=== PATIENT | male | born 1935 | race African-American/Black ===

== ENCOUNTER 2016-12-02 11:36 | Emergency (ER) | payer OTHER ==
[~2016-12-02] VITALS: Ht 167.6 cm; Wt 81.2 kg
[~2016-12-02 11:36] MED LIST: ACET325T9 PO; Aspirin PO; Hydrocodone/Acetaminophen PO; Metoprolol Tartrate PO
[2016-12-02 11:45] VITALS: BP 173/77
[2016-12-02] MEDS ORDERED: TETRACAINE 0.5% OPHTH SOLUTION 4ML BOTTLE. OS ONE (12:15)
[2016-12-02] MEDS ORDERED: FLUORESCEIN OPHTH TEST STRIP. OS ONE (12:15)
--- NOTE | 2016-12-02 12:55 | PHYS DOC ---
Past Medical History Past Medical History: Arthritis, Hypertension, Renal Disease, Renal Failure, UTI, Other Additional Past Medical Histor: DJD, COLON POLYPS, HEMORRHOIDS, BPH, AFLUTTER Past Surgical History: No Surgical History Alcohol Use: Occasionally Drug Use: None Adult General Chief Complaint Chief Complaint: EYE PROBLEMS [facility] HPI Patient is a 80 year old male presenting to the emergency department via ambulance for evaluation of left eye vision loss and feeling that there is something in his eye. He told the nurse that this started 2 days ago however patient told me that started 2 months ago as he has had progressive vision loss to the point where he cannot see anything including light and colors today. Patient is difficult to get history from as he is quite vague. He denies any exposure to foreign bodies and he denies any nausea vomiting headaches fevers chills. His left I looks injected. He says that his immunizations are up-to- date. Review of Systems Review of Systems Constitutional: Denies fever or chills [] Eyes: + change in visual acuity, redness, eye pain [] Cardiovascular: No additional information not addressed in HPI [] GI: Denies abdominal pain, nausea, vomiting, bloody stools or diarrhea [] Neurologic: Denies headache, focal weakness or sensory changes [] Current Medications Current Medications Current Medications Medications (Trade) Dose Ordered Sig/Maxx Start Time Stop Time Status Last Admin Dose Admin Fluorescein Sodium (Ful-Lucero) 1 strip 1X ONCE 12/02/16 12:15 12/02/16 12:16 DC 12/02/16 12:15 1 STRIP Tetracaine HCl (Tetracaine) 1 drop 1X ONCE 12/02/16 12:15 12/02/16 12:16 DC 12/02/16 12:15 1 DROP Allergies Allergies Allergies Coded Allergies Type Severity Reaction Last Updated Verified No Known Drug Allergies 01/18/15 No Physical Exam Physical Exam Constitutional: Well developed, well nourished, no acute distress, non-toxic appearance. [] EYES: Left eye diffusely injected with apparent foreign body at 10 o'clock position on iris. Cornea appears hazy and is somewhat more firm than the right eye. Pupil is minimally reactive on the left side. Pressures on his right I were in the low 20s and right eye were upper 30s. Negative Jemma sign and foreign body was partially removed with Q-tip and then the rest removed with eye yair. Cardiovascular:Heart rate regular rhythm, no murmur [] Lungs & Thorax: Bilateral breath sounds clear to auscultation [] Neurologic: Alert and oriented X 3, normal motor function, normal sensory function, no focal deficits noted. [] Current Patient Data Vital Signs Vital Signs Date Time Temp Pulse Resp B/P (MAP) Pulse Ox O2 Delivery O2 Flow Rate FiO2 12/02/16 11:45 97.8 60 14 173/77 (109) 94 Room Air 97.8 EKG EKG [] Radiology/Procedures Radiology/Procedures Indication: Left-sided vision loss. Axial imaging through the brain was performed without contrast. No prior studies are available for comparison. The ventricles and sulci are consistent with the patient's age. No sulcal effacement, midline shift or hemorrhage is detected. The cisterns are patent. There is opacification of bilateral maxillary sinuses. Impression: 1. No acute intracranial process is detected. 2. Bilateral maxillary sinusitis. 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 I eventually got a hold of Dr. Quiroga and he recommended getting ESR CRP and CBC. He said if these are negative he can see the patient tomorrow or the next day. 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 Patient is upset about having to get labs done however he is willing to stay. I will transfer care to Dr. Manzano while awaiting labs. Dragon Disclaimer Dragon Disclaimer This electronic medical record was generated, in whole or in part, using a voice recognition dictation system. Departure Departure Impression: Primary Impression: Vision loss of left eye Additional Impression: Foreign body of left eye Referrals: TIMO HAWKINS (PCP) Problem Qualifiers SHWETA BERMAN DO Dec 02, 2016 12:55
--- NOTE | 2016-12-02 12:57 | RAD ---
Indication: Left-sided vision loss. Axial imaging through the brain was performed without contrast. No prior studies are available for comparison. The ventricles and sulci are consistent with the patient's age. No sulcal effacement, midline shift or hemorrhage is detected. The cisterns are patent. There is opacification of bilateral maxillary sinuses. Impression: 1. No acute intracranial process is detected. 2. Bilateral maxillary sinusitis. PQRS Compliance Statement: One or more of the following individualized dose reduction techniques were utilized for this examination: 1. Automated exposure control 2. Adjustment of the mA and/or kV according to patient size 3. Use of iterative reconstruction technique
[2016-12-02 14:53] LABS: BASO % 1 % (0-3); EOS % 5 % (0-3); HEMATOCRIT 38.6 % (39.0-53.0); HEMOGLOBIN 12.7 g/dL (13.0-17.5); LYMPH # 1.1 x10^3/uL (1.0-4.8); LYMPH % 17 % (24-48); MEAN CORPUSCULAR HEMOGLOBIN 28 pg (25-35); MEAN CORPUSCULAR HGB CONC 33 g/dL (31-37); MEAN CORPUSCULAR VOLUME 86 fL (79-100); MONO % 10 % (0-9); NEUT % 68 % (31-73); PLATELET COUNT 205 x10^3/uL (140-400); RED BLOOD COUNT 4.48 x10^6/uL (4.30-5.70); RED CELL DISTRIBUTION WIDTH 14.8 % (11.5-14.5); WHITE BLOOD COUNT 6.4 x10^3/uL (4.0-11.0)
[2016-12-02 15:09] LABS: CALCIUM 8.8 mg/dL (8.5-10.1); CREATININE 1.2 mg/dL (0.7-1.3); GFR 70.7; POTASSIUM 4.4 mmol/L (3.5-5.1)
[2016-12-02] MEDS ORDERED: predniSONE 20 MG TABLET PO ONE (16:45)
[2016-12-02] MEDS ORDERED: PRED20TA PO (16:46)
== END 2016-12-02 18:12 | disposition home or self-care (01) ==
LOC: ER 11:36
DX: H54.62 Unqualified visual loss, left eye, normal vision right eye (principal); T15.82XA Foreign body in other and multiple parts of external eye, left eye, initial encounter; M19.90 Unspecified osteoarthritis, unspecified site; I12.9 Hypertensive chronic kidney disease with stage 1 through stage 4 chronic kidney disease, or unspecified chronic kidney disease; N18.9 Chronic kidney disease, unspecified; N40.0 Benign prostatic hyperplasia without lower urinary tract symptoms; Z87.440 Personal history of urinary (tract) infections; X58.XXXA Exposure to other specified factors, initial encounter; Y93.89 Activity, other specified; Y92.89 Other specified places as the place of occurrence of the external cause; Y99.8 Other external cause status
CPT/HCPCS: 36415; 65205; 70450; 80048; 85027; 85651; 86140; 99285; J7512

== ENCOUNTER 2017-01-08 18:08 | Inpatient (IN) | payer OTHER ==
[~2017-01-08] VITALS: Ht 170.2 cm; Wt 88.6 kg
[~2017-01-08 18:08] MED LIST changes: +PRED20TA PO
[2017-01-08] MEDS ORDERED: IPRATRPIUM/ALBUTEROL 0.5/2.5MG 3 ML NEBU. NEB ONE ×2 (18:30→19:00)
--- NOTE | 2017-01-08 18:42 | PHYS DOC ---
Past Medical History Past Medical History: Arthritis, Hypertension, Renal Disease, Renal Failure, UTI, Other Additional Past Medical Histor: DJD, COLON POLYPS, HEMORRHOIDS, BPH, AFLUTTER Past Surgical History: No Surgical History Alcohol Use: Occasionally Drug Use: None Adult General Chief Complaint Chief Complaint: SHORTNESS OF BREATH [facility] HPI 81-year-old male who lives at a skilled nursing with a history of COPD and atrial flutter, as well as "swallowing problems, " now sent to the emergency department for evaluation of worsening exertional shortness of breath with productive cough patient think she might be evolving a lung infection. He has bilateral lower extremity edema that's normal for him, states he's never been told he had congestive heart failure. Denies chest pain. Patient does not use home oxygen. He states he is unable to walk even a few steps because of shortness of breath which is definitely worse than his baseline. Review of Systems Review of Systems Constitutional: Denies fever or chills [] Eyes: Denies change in visual acuity, redness, or eye pain [] HENT: Denies nasal congestion or sore throat [] Respiratory: Denies cough or shortness of breath [] Cardiovascular: No additional information not addressed in HPI [] GI: Denies abdominal pain, nausea, vomiting, bloody stools or diarrhea [] : Denies dysuria or hematuria [] Musculoskeletal: Denies back pain or joint pain [] Integument: Denies rash or skin lesions [] Neurologic: Denies headache, focal weakness or sensory changes [] Endocrine: Denies polyuria or polydipsia [] Current Medications Current Medications Current Medications Medications (Trade) Dose Ordered Sig/Maxx Start Time Stop Time Status Last Admin Dose Admin Albuterol/ Ipratropium (Duoneb) 3 ml 1X ONCE 01/08/17 19:00 01/08/17 19:01 DC 01/08/17 20:55 3 ML Diphenhydramine HCl (Benadryl) 25 mg 1X ONCE 01/08/17 22:00 01/08/17 22:01 DC 01/08/17 21:47 25 MG Methylprednisolone Sodium Succinate (SOLU-Medrol 125MG VIAL) 125 mg 1X ONCE 01/08/17 19:00 01/08/17 19:01 DC 01/08/17 19:17 125 MG Sodium Chloride 500 ml @ 500 mls/hr 1X ONCE 01/08/17 19:00 01/08/17 19:59 DC 01/08/17 19:18 500 MLS/HR Allergies Allergies Allergies Coded Allergies Type Severity Reaction Last Updated Verified No Known Drug Allergies 01/18/15 No Physical Exam Physical Exam Constitutional: Chronically weak appearing mild tachypnea bilateral bronchospasm or rhonchi, no acute distress, non-toxic appearance. [] HENT: Normocephalic, atraumatic, bilateral external ears normal, oropharynx moist, no oral exudates, nose normal. [] Eyes: PERRLA, EOMI, conjunctiva normal, no discharge. [] Neck: Normal range of motion, no tenderness, supple, no stridor. [] Cardiovascular:Heart rate irregularly irregular rhythm, no murmur [] Lungs & Thorax: Above Abdomen: Bowel sounds normal, soft, no tenderness, no masses, no pulsatile masses. [] Skin: Warm, dry, no erythema, no rash. [] Back: No tenderness, no CVA tenderness. [] Extremities: No tenderness, no cyanosis, no clubbing, ROM intact, no edema. [] Neurologic: Alert and oriented X 3, normal motor function, normal sensory function, no focal deficits noted. [] Psychologic: Affect normal, judgement normal, mood normal. [] Current Patient Data Vital Signs Vital Signs Date Time Temp Pulse Resp B/P (MAP) Pulse Ox O2 Delivery O2 Flow Rate FiO2 01/08/17 20:54 98 Room Air 01/08/17 18:20 98.8 50 20 173/77 (109) 98.8 Lab Values Laboratory Tests Test 01/08/17 19:25 White Blood Count 7.8 x10^3/uL (4.0-11.0) Red Blood Count 4.24 x10^6/uL (4.30-5.70) L Hemoglobin 12.3 g/dL (13.0-17.5) L Hematocrit 36.9 % (39.0-53.0) L Mean Corpuscular Volume 87 fL (79-100) Mean Corpuscular Hemoglobin 29 pg (25-35) Mean Corpuscular Hemoglobin Concent 33 g/dL (31-37) Red Cell Distribution Width 15.3 % (11.5-14.5) H Platelet Count 230 x10^3/uL (140-400) Neutrophils (%) (Auto) 57 % (31-73) Lymphocytes (%) (Auto) 23 % (24-48) L Monocytes (%) (Auto) 15 % (0-9) H Eosinophils (%) (Auto) 5 % (0-3) H Basophils (%) (Auto) 1 % (0-3) Neutrophils # (Auto) 4.4 x10^3uL (1.8-7.7) Lymphocytes # (Auto) 1.8 x10^3/uL (1.0-4.8) Monocytes # (Auto) 1.1 x10^3/uL (0.0-1.1) Eosinophils # (Auto) 0.4 x10^3/uL (0.0-0.7) Basophils # (Auto) 0.1 x10^3/uL (0.0-0.2) Sodium Level 143 mmol/L (136-145) Potassium Level 4.3 mmol/L (3.5-5.1) Chloride Level 108 mmol/L (98-107) H Carbon Dioxide Level 25 mmol/L (21-32) Anion Gap 10 (6-14) Blood Urea Nitrogen 25 mg/dL (8-26) Creatinine 1.4 mg/dL (0.7-1.3) H Estimated GFR (Cockcroft-Gault) 59.0 Glucose Level 109 mg/dL (70-99) H Calcium Level 8.9 mg/dL (8.5-10.1) Troponin I Quantitative < 0.017 ng/mL (0.000-0.055) Laboratory Tests 01/08/17 19:25 Laboratory Tests 01/08/17 19:25 EKG EKG Atrial fibrillation with the ventricular rate of 59. Nonspecific ST and T-wave findings with repolarization abnormality. No significant change in QRS morphology compared with prior exam. [] Radiology/Procedures Radiology/Procedures Chest x-ray chronic changes no acute disease no visible infiltrate interpreted by me [] Course & Med Decision Making Course & Med Decision Making Pertinent Labs and Imaging studies reviewed. (See chart for details) Signs and symptoms consistent with exacerbation of COPD improved after treatment however patient has persistent wheezing. He does not wear home O2 per records and he still hypoxic on room air 90-91%. Improved with supplemental oxygen. Patient has productive cough but no evidence of infiltrate on the x- ray. He has Zithromax given. Steroids administered. She'll be discussed with Dr. Kiko Hein admitting for patient's primary care doctor. We'll advise of history and findings and admit to inpatient telemetry bed for further respiratory workup therapy and supplemental oxygen. [] Dragon Disclaimer Dragon Disclaimer This electronic medical record was generated, in whole or in part, using a voice recognition dictation system. Departure Departure Impression: Primary Impression: COPD exacerbation Additional Impressions: Hypoxia Bronchitis Disposition: ADMITTED INPATIENT Admitting Physician: Stephanie Mariano Condition: IMPROVED Referrals: TIMO HAWKINS (PCP) Problem Qualifiers AVNI VARELA MD Jan 08, 2017 18:42
[2017-01-08] MEDS ORDERED: methylPREDNISolone SOD SUCC PF 125 MG/2 ML VIAL. IV ONE (19:00)
[2017-01-08] MEDS ORDERED: IV NORMAL SALINE 500ML BAG 500 ML IV ONE (19:00)
[2017-01-08 19:40] LABS: BASO # 0.1 x10^3/uL (0.0-0.2); BASO % 1 % (0-3); EOS % 5 % (0-3); HEMATOCRIT 36.9 % (39.0-53.0); HEMOGLOBIN 12.3 g/dL (13.0-17.5); LYMPH # 1.8 x10^3/uL (1.0-4.8); LYMPH % 23 % (24-48); MEAN CORPUSCULAR HEMOGLOBIN 29 pg (25-35); MEAN CORPUSCULAR HGB CONC 33 g/dL (31-37); MEAN CORPUSCULAR VOLUME 87 fL (79-100); MONO % 15 % (0-9); NEUT % 57 % (31-73); PLATELET COUNT 230 x10^3/uL (140-400); RED BLOOD COUNT 4.24 x10^6/uL (4.30-5.70); RED CELL DISTRIBUTION WIDTH 15.3 % (11.5-14.5); WHITE BLOOD COUNT 7.8 x10^3/uL (4.0-11.0)
[2017-01-08 19:53] LABS: CALCIUM 8.9 mg/dL (8.5-10.1); CREATININE 1.4 mg/dL (0.7-1.3); POTASSIUM 4.3 mmol/L (3.5-5.1)
[2017-01-08] MEDS ORDERED: diphenhydrAMINE 50 MG/ML VIAL IVP ONE (22:00)
[2017-01-08] MEDS ORDERED: AZITHROMYCIN 250 MG TABLET. PO ONE (22:30)
[2017-01-08 23:45] VITALS: BP 135/72
[2017-01-08] MEDS ORDERED: ACETAMINOPHEN 325 MG TABLET. PO PRN (23:45)
[2017-01-09] MEDS: IV NORMAL SALINE 1000ML BAG 1,000 ML IV SCH ×2 (00:18→14:39)
[2017-01-09] MEDS: ENOXAPARIN 40 MG/0.4 ML SYRINGE. SQ SCH ×2 (00:20→21:22)
[2017-01-09] MEDS ORDERED: FINA5TAB4 PO (01:14)
[2017-01-09] MEDS ORDERED: LACT20SO PO (01:14)
[2017-01-09] MEDS ORDERED: POLY17PO29 PO (01:14)
[2017-01-09] MEDS ORDERED: LOSA100T6 PO (01:14)
[2017-01-09] MEDS ORDERED: HYDR-971 PO (01:14)
[2017-01-09] MEDS ORDERED: AMLO10TA2 PO (01:14)
[2017-01-09] MEDS ORDERED: DEXT15DR5 EACHEYE (01:14)
[2017-01-09] MEDS ORDERED: CLON0.5T3 PO (01:14)
--- NOTE | 2017-01-09 01:24 | ACF ---
Admission Forms Criteria COPD Clinical Indications for Admission to Inpatient Care (Place 'X' for any and all applicable criteria): Admission is indicated for ANY ONE of the following (1)(2)(3): [X]I. Acute exacerbation by high-risk comorbidity (e.g., pneumonia, dysrhythmia, heart failure, pleural effusion, pneumothorax) or severe underlying COPD (e.g., steroid dependent) [ ]II. Inpatient admission required rather than observation care (see Chronic Obstructive Pulmonary Disease: Observation Care) because of ANY ONE of the following: [ ]a) New or pre-existing signs or symptoms of COPD (eg, dyspnea or Tachypnea at rest or with minimal activity) that persist despite outpatient and observation care treatment [ ]b) New-onset hypoxemia (room air SaO2 less than 90%, PO2 less than 60 mm Hg (8.0 kPa)) that persists despite outpatient and observation care treatment [ ]c) Worsening of pre-existing hypoxemia (eg, new or increased requirement for supplemental oxygen to maintain oxygenation at baseline level) that persists despite outpatient and observation care treatment, with oxygen treatment needs performable only in acute inpatient setting [ ]d) Hypercarbia (PCO2 greater than 40 mm Hg (5.3 kPa))-induced respiratory acidosis (pH less than 7.35) that persists despite outpatient and observation care treatment [ ]e) Supplemental oxygen or respiratory treatments for over 24 hours that are performable only in acute inpatient setting [ ]f) Chest tube placement with active evacuation (e.g., suction, drainage) (5) [ ]g) Other condition, treatment or monitoring requiring inpatient admission [ ]III. Planned invasive surgical or diagnostic procedures requiring acute- care hospitalization [ ]IV. Acute respiratory failure (e.g., uncompensated hypercarbia, severe hypoxemia) [ ]V. Severe comorbid condition (e.g., severe steroid myopathy, acute vertebral fracture) that has acutely worsened pulmonary function [ ]. Confusion state, lethargy, obtundation, stupor or coma Extended stay beyond goal length of stay may be needed for (31)(32): [ ]a ) Respiratory Failure. [ ]b) Severe or persisting hypoxemia or hypercarbia [ ]c) Severe or persistent dyspnea [ ]d) Comorbidities (e.g. chronic heart failure, atrial fibrillation with rapid response, pneumonia) [ ]e) Malnutrition The original [facility] content created by [facility] [employer] has been revised. The portions of the content which have been revised are identified through the use of italic text or in bold, and [facility] has neither reviewed nor approved the modified material. All other unmodified content is copyright [facility]. Please see references footnoted in the original [facility] edition 2016 Admission Criteria Met?: Yes KASEY PAYTON Jan 09, 2017 01:24
[2017-01-09 03:15] VITALS: BP 136/73
[2017-01-09 04:43] LABS: BASO % 0 % (0-3); EOS % 0 % (0-3); HEMATOCRIT 36.3 % (39.0-53.0); HEMOGLOBIN 12.4 g/dL (13.0-17.5); LYMPH # 0.4 x10^3/uL (1.0-4.8); LYMPH % 5 % (24-48); MEAN CORPUSCULAR HEMOGLOBIN 30 pg (25-35); MEAN CORPUSCULAR HGB CONC 34 g/dL (31-37); MEAN CORPUSCULAR VOLUME 86 fL (79-100); MONO % 1 % (0-9); NEUT % 94 % (31-73); PLATELET COUNT 229 x10^3/uL (140-400); RED CELL DISTRIBUTION WIDTH 15.3 % (11.5-14.5); WHITE BLOOD COUNT 8.3 x10^3/uL (4.0-11.0)
[2017-01-09 04:56] LABS: CALCIUM 8.9 mg/dL (8.5-10.1); CREATININE 1.3 mg/dL (0.7-1.3); GFR 64.3; POTASSIUM 4.8 mmol/L (3.5-5.1)
[2017-01-09] MEDS: methylPREDNISolone SOD SUCC PF 125 MG/2 ML VIAL. IV SCH ×3 (06:03→21:22)
--- NOTE | 2017-01-09 06:20 | EKG ---
[facility] [address] [place] [address] Test Date: 2017-01-08 Test Time: 19:14:24 Pat Name: ZAIN GILMORE Department: Room: [facility] Gender: M Learning And Development Officer: : 1935 Requested By: AVNI VARELA Order Number: [id number] Reading MD: Tiffanie Hoffman Measurements Intervals [place] Rate: 59 P: [place]: QRS: -24 QRSD: 118 T: 103 QT: 440 QTc: 440 Interpretive Statements ATRIAL FIBRILLATION LEFTWARD AXIS QRS(T) CONTOUR ABNORMALITY CONSISTENT WITH ANTERIOR INFARCT PROBABLY OLD INTRA VENTRICULAR CONDUCTION DEFECT Electronically Signed On 01-13-2017 15:08:40 CDT by Tiffanie Hoffman
[2017-01-09 07:00] VITALS: BP 173/75
[2017-01-09] MEDS: IPRATRPIUM/ALBUTEROL 0.5/2.5MG 3 ML NEBU. NEB SCH ×4 (08:04→19:46)
[2017-01-09 08:28] LABS: PLT ESTIMATE ADEQUATE (ADEQUATE)
--- NOTE | 2017-01-09 08:28 | RAD ---
Portable chest, 01/08/2017: History: Shortness of breath Comparison is made to a study from 04/06/2015. The heart size and pulmonary vascularity are normal. There is calcific plaquing of the aorta. No acute infiltrate is seen. There is no evidence of pleural fluid. Degenerative changes are present in the spine and at both shoulders. IMPRESSION: No acute cardiopulmonary abnormality is detected.
[2017-01-09] MEDS: METOPROLOL TART IMMED RELEASE 25 MG TABLET. PO SCH ×2 (08:44→21:23)
[2017-01-09] MEDS: ASPIRIN ENTERIC COATED 81 MG TABLET.DR. PO SCH (08:44)
[2017-01-09 10:40] VITALS: BP 177/80
[2017-01-09 14:49] VITALS: BP 170/72
--- NOTE | 2017-01-09 18:29 | PDOC1 ---
HISTORY AND PHYSICAL Chief Complaint Chief Complaint This is 81-year-old male who lives at [facility], with a history of COPD and atrial flutter, as well as "swallowing problems, " now sent to the emergency department for evaluation of worsening exertional shortness of breath with productive cough patient think she might be evolving a lung infection. He has bilateral lower extremity edema that's normal for him, states he's never been told he had congestive heart failure. Denies chest pain. Patient does not use home oxygen. He states he is unable to walk even a few steps because of shortness of breath which is definitely worse than his baseline.admitted for copd exacerbation.given steroid s and antibiotics Problems: Past Medical History Cardiovascular: AFIB, HTN Pulmonary: No pertinent hx CENTRAL NERVOUS SYSTEM: Other GI: No pertinent hx Heme/Onc: Anemia NOS Musculoskeletal: Osteoarthritis, Other Renal/: Acute renal failure Endocrine: No pertinent hx Past Surgical History Past Surgical History: No pertinent history Past Family History Family History: Family History Unknown Past Social History PSH ex smoker, no alcohol ,lives in assisted facility Review of Symptoms Review of Symptoms General ROS: positive for SOB and wheezing Psychological ROS: negative Ophthalmic ROS: negative ENT ROS: negative Allergy and Immunology ROS: negative Hematology and Lymphatic: negative Endocrine ROS: negative Respiratory ROS: no cold, cough, dyspnea. Cardiovascular ROS: no chest pain or dyspnea on exertion Gastrointestinal ROS: no abdominal pain, change in bowel habits, or black or bloody stools Genito-Urinary ROS: no dysuria, trouble voiding, or hematuria Musculoskeletal ROS: no pain Neurological ROS: negative Dermatological ROS: no rash Medications Current Medications Acetaminophen (Tylenol) 650 mg PRN Q6HRS PRN PO MILD PAIN / TEMP; Start at 23:45 Acetaminophen/ Hydrocodone Bitart (Lortab 5/325) 1 tab PRN Q6HRS PRN PO MODERATE PAIN; Start 01/08/17 at 23:45 Albuterol Sulfate (Ventolin Neb Soln) 2.5 mg PRN QID PRN NEB SHORTNESS OF BREATH; Start 01/08/17 at 23:45 Albuterol/ Ipratropium (Duoneb) 3 ml 1X ONCE NEB Last administered on t 18:37; Start 01/08/17 at 18:30; Stop 01/08/17 at 18:31; Status DC Albuterol/ Ipratropium (Duoneb) 3 ml 1X ONCE NEB Last administered on 20:55; Start 01/08/17 at 19:00; Stop 01/08/17 at 19:01; Status DC Albuterol/ Ipratropium (Duoneb) 3 ml RTQID NEB Last administered on 01/09/17 16:00; Start 01/09/17 at 08:00 Aspirin (Ecotrin) 81 mg [id number] PO Last administered on 01/09/17 08:44; Start 01/09/17 at 08:00 Azithromycin (Zithromax) 500 mg 1X ONCE PO Last administered on 01/09/17 00: 20; Start 01/08/17 at 22:30; Stop 01/08/17 at 22:31; Status DC Ceftriaxone Sodium 1 gm/ Sodium Chloride 50 ml @ 100 mls/hr QHS IV Last administered on 01/09/17 00:18; Start 01/09/17 at 00:00 Diphenhydramine HCl (Benadryl) 25 mg 1X ONCE IVP Last administered on 21:47; Start 01/08/17 at 22:00; Stop 01/08/17 at 22:01; Status DC Enoxaparin Sodium (Lovenox 40mg Syringe) 40 mg QHS SQ Last administered on 01/09 00:20; Start 01/09/17 at 00:00 Methylprednisolone Sodium Succinate (SOLU-Medrol 125MG VIAL) 60 mg Q8HRS IV Last administered on 01/09/17 14:40; Start 01/09/17 at 06:00 Methylprednisolone Sodium Succinate (SOLU-Medrol 125MG VIAL) 125 mg 1X ONCE IV Last administered on 01/08/17 19:17; Start 01/08/17 at 19:00; Stop 01/08/17 at 19:01; Status DC Metoprolol Tartrate (Lopressor) 12.5 mg BID PO Last administered on 01/09/17 08:44; Start 01/09/17 at 09:00 Sodium Chloride 500 ml @ 500 mls/hr 1X ONCE IV Last administered on 19:18; Start 01/08/17 at 19:00; Stop 01/08/17 at 19:59; Status DC Sodium Chloride 1,000 ml @ 75 mls/hr [id number] IV Last administered on t 14:39; Start 01/08/17 at 23:45 Allergy Allergies Coded Allergies Type Severity Reaction Last Updated Verified No Known Drug Allergies 01/18/15 No Physical Exam Physical Exam General appearance - chronically ill appearing, and in no distress and oriented to person, Mental Status - alert, oriented to person,, affect appropriate to mood Head - normal Chest - clear to auscultation, no wheezes, rales or rhonchi, symmetric air entry Heart - S1 and S2 normal Abdomen - soft, nontender, nondistended, no masses or organomegaly Neurological - alert and oriented Musculoskeletal - deformities at joints knee Extremities - no pedal edema Skin - warm and dry no chung Labs Laboratory Tests Test 01/08/17 19:25 01/09/17 03:30 White Blood Count 7.8 x10^3/uL (4.0-11.0) 8.3 x10^3/uL (4.0-11.0) Red Blood Count 4.24 x10^6/uL (4.30-5.70) 4.20 x10^6/uL (4.30-5.70) Hemoglobin 12.3 g/dL (13.0-17.5) 12.4 g/dL (13.0-17.5) Hematocrit 36.9 % (39.0-53.0) 36.3 % (39.0-53.0) Mean Corpuscular Volume 87 fL (79-100) 86 fL (79-100) Mean Corpuscular Hemoglobin 29 pg (25-35) 30 pg (25-35) Mean Corpuscular Hemoglobin Concent 33 g/dL (31-37) 34 g/dL (31-37) Red Cell Distribution Width 15.3 % (11.5-14.5) 15.3 % (11.5-14.5) Platelet Count 230 x10^3/uL (140-400) 229 x10^3/uL (140-400) Neutrophils (%) (Auto) 57 % (31-73) 94 % (31-73) Lymphocytes (%) (Auto) 23 % (24-48) 5 % (24-48) Monocytes (%) (Auto) 15 % (0-9) 1 % (0-9) Eosinophils (%) (Auto) 5 % (0-3) 0 % (0-3) Basophils (%) (Auto) 1 % (0-3) 0 % (0-3) Neutrophils # (Auto) 4.4 x10^3uL (1.8-7.7) 7.8 x10^3uL (1.8-7.7) Lymphocytes # (Auto) 1.8 x10^3/uL (1.0-4.8) 0.4 x10^3/uL (1.0-4.8) Monocytes # (Auto) 1.1 x10^3/uL (0.0-1.1) 0.0 x10^3/uL (0.0-1.1) Eosinophils # (Auto) 0.4 x10^3/uL (0.0-0.7) 0.0 x10^3/uL (0.0-0.7) Basophils # (Auto) 0.1 x10^3/uL (0.0-0.2) 0.0 x10^3/uL (0.0-0.2) Sodium Level 143 mmol/L (136-145) 143 mmol/L (136-145) Potassium Level 4.3 mmol/L (3.5-5.1) 4.8 mmol/L (3.5-5.1) Chloride Level 108 mmol/L (98-107) 108 mmol/L (98-107) Carbon Dioxide Level 25 mmol/L (21-32) 25 mmol/L (21-32) Anion Gap 10 (6-14) 10 (6-14) Blood Urea Nitrogen 25 mg/dL (8-26) 23 mg/dL (8-26) Creatinine 1.4 mg/dL (0.7-1.3) 1.3 mg/dL (0.7-1.3) Estimated GFR (Cockcroft-Gault) 59.0 64.3 Glucose Level 109 mg/dL (70-99) 170 mg/dL (70-99) Calcium Level 8.9 mg/dL (8.5-10.1) 8.9 mg/dL (8.5-10.1) Troponin I Quantitative < 0.017 ng/mL (0.000-0.055) Segmented Neutrophils % 90 % (35-66) Band Neutrophils % 2 % (0-9) Lymphocytes % 8 % (24-48) Platelet Estimate Adequate (ADEQUATE) Laboratory Tests Test 01/08/17 19:25 01/09/17 03:30 White Blood Count 7.8 x10^3/uL (4.0-11.0) 8.3 x10^3/uL (4.0-11.0) Red Blood Count 4.24 x10^6/uL (4.30-5.70) 4.20 x10^6/uL (4.30-5.70) Hemoglobin 12.3 g/dL (13.0-17.5) 12.4 g/dL (13.0-17.5) Hematocrit 36.9 % (39.0-53.0) 36.3 % (39.0-53.0) Mean Corpuscular Volume 87 fL (79-100) 86 fL (79-100) Mean Corpuscular Hemoglobin 29 pg (25-35) 30 pg (25-35) Mean Corpuscular Hemoglobin Concent 33 g/dL (31-37) 34 g/dL (31-37) Red Cell Distribution Width 15.3 % (11.5-14.5) 15.3 % (11.5-14.5) Platelet Count 230 x10^3/uL (140-400) 229 x10^3/uL (140-400) Neutrophils (%) (Auto) 57 % (31-73) 94 % (31-73) Lymphocytes (%) (Auto) 23 % (24-48) 5 % (24-48) Monocytes (%) (Auto) 15 % (0-9) 1 % (0-9) Eosinophils (%) (Auto) 5 % (0-3) 0 % (0-3) Basophils (%) (Auto) 1 % (0-3) 0 % (0-3) Neutrophils # (Auto) 4.4 x10^3uL (1.8-7.7) 7.8 x10^3uL (1.8-7.7) Lymphocytes # (Auto) 1.8 x10^3/uL (1.0-4.8) 0.4 x10^3/uL (1.0-4.8) Monocytes # (Auto) 1.1 x10^3/uL (0.0-1.1) 0.0 x10^3/uL (0.0-1.1) Eosinophils # (Auto) 0.4 x10^3/uL (0.0-0.7) 0.0 x10^3/uL (0.0-0.7) Basophils # (Auto) 0.1 x10^3/uL (0.0-0.2) 0.0 x10^3/uL (0.0-0.2) Sodium Level 143 mmol/L (136-145) 143 mmol/L (136-145) Potassium Level 4.3 mmol/L (3.5-5.1) 4.8 mmol/L (3.5-5.1) Chloride Level 108 mmol/L (98-107) 108 mmol/L (98-107) Carbon Dioxide Level 25 mmol/L (21-32) 25 mmol/L (21-32) Anion Gap 10 (6-14) 10 (6-14) Blood Urea Nitrogen 25 mg/dL (8-26) 23 mg/dL (8-26) Creatinine 1.4 mg/dL (0.7-1.3) 1.3 mg/dL (0.7-1.3) Estimated GFR (Cockcroft-Gault) 59.0 64.3 Glucose Level 109 mg/dL (70-99) 170 mg/dL (70-99) Calcium Level 8.9 mg/dL (8.5-10.1) 8.9 mg/dL (8.5-10.1) Troponin I Quantitative < 0.017 ng/mL (0.000-0.055) Segmented Neutrophils % 90 % (35-66) Band Neutrophils % 2 % (0-9) Lymphocytes % 8 % (24-48) Platelet Estimate Adequate (ADEQUATE) Vitals Vital Signs Date Time Temp Pulse Resp B/P (MAP) Pulse Ox O2 Delivery O2 Flow Rate FiO2 01/09/17 16:01 Nasal Cannula 2.0 01/09/17 14:49 98.2 70 22 170/72 (104) 98 98.2 VTE Prophylaxis VTE Prophylaxis Devices: Yes VTE Pharmacological Prophylaxi: Yes Assessment Assessment COPD with ac exacerbation htn arthritis Plan Plan iv fluids iv steroids duoneb iv rocephin For more details regarding further plans, please refer to the orders. JAMES VERDIN MD Jan 09, 2017 18:29
[2017-01-09 19:52] VITALS: BP 140/68
[2017-01-09 23:00] VITALS: BP 166/72
[2017-01-10 03:00] VITALS: BP 169/73
[2017-01-10] MEDS: IV NORMAL SALINE 1000ML BAG 1,000 ML IV SCH (04:09)
[2017-01-10] MEDS: methylPREDNISolone SOD SUCC PF 125 MG/2 ML VIAL. IV SCH (05:51)
[2017-01-10 06:40] LABS: BASO % 0 % (0-3); EOS % 0 % (0-3); HEMATOCRIT 36.9 % (39.0-53.0); HEMOGLOBIN 11.8 g/dL (13.0-17.5); LYMPH # 0.8 x10^3/uL (1.0-4.8); LYMPH % 5 % (24-48); MEAN CORPUSCULAR HEMOGLOBIN 28 pg (25-35); MEAN CORPUSCULAR HGB CONC 32 g/dL (31-37); MEAN CORPUSCULAR VOLUME 89 fL (79-100); MONO % 2 % (0-9); NEUT % 92 % (31-73); PLATELET COUNT 243 x10^3/uL (140-400); RED BLOOD COUNT 4.17 x10^6/uL (4.30-5.70); RED CELL DISTRIBUTION WIDTH 15.7 % (11.5-14.5); WHITE BLOOD COUNT 14.9 x10^3/uL (4.0-11.0)
[2017-01-10 07:05] LABS: ALBUMIN 3.2 g/dL (3.4-5.0); ALBUMIN/GLOBULIN RATIO 0.8 (1.0-1.7); CALCIUM 8.9 mg/dL (8.5-10.1); CHOLESTEROL/HDL RATIO 4.2; CREATININE 1.2 mg/dL (0.7-1.3); GFR 70.5; POTASSIUM 4.7 mmol/L (3.5-5.1); TOTAL BILIRUBIN 0.3 mg/dL (0.2-1.0); TOTAL PROTEIN 7.4 g/dL (6.4-8.2)
[2017-01-10 07:20] VITALS: BP 181/76
[2017-01-10] MEDS: IPRATRPIUM/ALBUTEROL 0.5/2.5MG 3 ML NEBU. NEB SCH ×4 (07:27→19:26)
[2017-01-10 07:57] LABS: PLT ESTIMATE ADEQUATE (ADEQUATE)
[2017-01-10] MEDS: ASPIRIN ENTERIC COATED 81 MG TABLET.DR. PO SCH (08:00)
[2017-01-10] MEDS: METOPROLOL TART IMMED RELEASE 25 MG TABLET. PO SCH ×2 (09:26→20:24)
[2017-01-10 10:44] VITALS: BP 195/86
[2017-01-10] MEDS ORDERED: predniSONE 20 MG TABLET PO ONE (10:45)
[2017-01-10] MEDS: CEFPODOXIME PROXETIL 100 MG TABLET. PO SCH ×2 (11:23→20:24)
[2017-01-10 14:42] VITALS: BP 184/71
--- NOTE | 2017-01-10 16:35 | PDOC2 ---
CONSULT Date of Consult Date of Consult DATE: 01/10/17 TIME: 16:25 Reason for Consult Reason for Consult: rehab evaluation Referring Physician Referring Physician: Identification/Chief Complaint Chief Complaint SOB Problems: Source Source: Chart review, Patient History of Present Illness Reason for Visit: This is an elderly male with mobility and self care limitations,a resident of [facility] admitted here for for evaluation and treatment of increased SOB. Past Medical History Cardiovascular: AFIB, HTN Pulmonary: No pertinent hx CENTRAL NERVOUS SYSTEM: Other GI: No pertinent hx Heme/Onc: Anemia NOS Musculoskeletal: Osteoarthritis, Other Renal/: Acute renal failure Endocrine: No pertinent hx Past Surgical History Past Surgical History: No pertinent history Family History Family History: Family History Unknown Social History ALCOHOL: none Drugs: None Lives: Group Home Current Problem List Problem List Problems Medical Problems: (1) Bronchitis Status: Acute (2) COPD exacerbation Status: Acute (3) Hypoxia Status: Acute Current Medications Current Medications Current Medications Albuterol/ Ipratropium (Duoneb) 3 ml 1X ONCE NEB Last administered on 18:37; Start 01/08/17 at 18:30; Stop 01/08/17 at 18:31; Status DC Sodium Chloride 500 ml @ 500 mls/hr 1X ONCE IV Last administered on 19:18; Start 01/08/17 at 19:00; Stop 01/08/17 at 19:59; Status DC Methylprednisolone Sodium Succinate (SOLU-Medrol 125MG VIAL) 125 mg 1X ONCE IV Last administered on 01/08/17 19:17; Start 01/08/17 at 19:00; Stop 01/08/17 at 19:01; Status DC Albuterol/ Ipratropium (Duoneb) 3 ml 1X ONCE NEB Last administered on 20:55; Start 01/08/17 at 19:00; Stop 01/08/17 at 19:01; Status DC Diphenhydramine HCl (Benadryl) 25 mg 1X ONCE IVP Last administered on 21:47; Start 01/08/17 at 22:00; Stop 01/08/17 at 22:01; Status DC Azithromycin (Zithromax) 500 mg 1X ONCE PO Last administered on 01/09/17 00: 20; Start 01/08/17 at 22:30; Stop 01/08/17 at 22:31; Status DC Acetaminophen (Tylenol) 650 mg PRN Q6HRS PRN PO MILD PAIN / TEMP; Start at 23:45 Aspirin (Ecotrin) 81 mg DAILYWBKFT PO Last administered on 01/10/17 08:00; Start 01/09/17 at 08:00 Acetaminophen/ Hydrocodone Bitart (Lortab 5/325) 1 tab PRN Q6HRS PRN PO MODERATE PAIN; Start 01/08/17 at 23:45 Metoprolol Tartrate (Lopressor) 12.5 mg BID PO Last administered on 01/10/17 09:26; Start 01/09/17 at 09:00 Sodium Chloride 1,000 ml @ 75 mls/hr [id number] IV Last administered on 04:09; Start 01/08/17 at 23:45; Stop 01/10/17 at 10:47; Status DC Albuterol/ Ipratropium (Duoneb) 3 ml RTQID NEB Last administered on 01/10/17 15:27; Start 01/09/17 at 08:00 Albuterol Sulfate (Ventolin Neb Soln) 2.5 mg PRN QID PRN NEB SHORTNESS OF BREATH; Start 01/08/17 at 23:45 Methylprednisolone Sodium Succinate (SOLU-Medrol 125MG VIAL) 60 mg Q8HRS IV Last administered on 01/10/17 05:51; Start 01/09/17 at 06:00; Stop 01/10/17 at 10:47; Status DC Ceftriaxone Sodium 1 gm/ Sodium Chloride 50 ml @ 100 mls/hr QHS IV Last administered on 01/09/17 21:24; Start 01/09/17 at 00:00; Stop 01/10/17 at 10:47 ; Status DC Enoxaparin Sodium (Lovenox 40mg Syringe) 40 mg QHS SQ Last administered on 01/09 21:22; Start 01/09/17 at 00:00 Prednisone (Prednisone) 40 mg DAILY PO ; Start 01/11/17 at 09:00 Prednisone (Prednisone) 50 mg 1X ONCE PO Last administered on 01/10/17 11:23 ; Start 01/10/17 at 10:45; Stop 01/10/17 at 10:49; Status DC Cefpodoxime Proxetil (Vantin) 200 mg BID PO Last administered on 01/10/17t 11: 23; Start 01/10/17 at 10:45 Active Scripts Active Prednisone 20 Mg Tablet 3 Tab PO DAILY 5 Days [Metoprolol Tartrate] 25 MG Tablet 12.5 Mg PO BID [Hydrocodone/Acetaminophen] 1 TAB Tablet 1 Tab PO PRN Q6HRS PRN [Aspirin] 81 MG Tablet.dr 81 Mg PO DAILYWBKFT Tylenol (Acetaminophen) 325 Mg Tablet 650 Mg PO PRN Q6HRS PRN Reported Amlodipine Besylate 10 Mg Tablet 10 Mg PO DAILY Losartan Potassium 100 Mg Tablet 100 Mg PO DAILY Lactulose 20 Gm/30 Ml Solution 15 Gm PO DAILY Finasteride 5 Mg Tablet 1 Tab PO DAILY [place] 5-325 Tablet (Acetaminophen/Hydrocodone Bitart) 1 Each Tablet 1 Tab PO PRN Q6HRS PRN Artificial Tears Eye Drops (Dextran 70/Hypromellose) 15 Ml Drops 1 Drop EACHEYE PRN DAILY PRN Miralax (Polyethylene Glycol 3350) 17 Gm Powd.pack 1 Packet PO PRN DAILY PRN Clonazepam 0.5 Mg Tablet 1 Tab PO HS Allergies Allergies: Coded Allergies: I S O L A T I O N *CONTACT* (Verified Allergy, Unknown, 01/10/17) mrsa No Known Medication Allergies (Verified Allergy, Unknown, 01/10/17) Physical Exam General: Alert, Oriented X3, Cooperative, No acute distress HEENT: PERRLA, Mucous membr. moist/pink Extremities: Other (He had crepitus on ROM of both knees and shoulders with significant weakness of rotator cuff muscles blaterally and bilateral knee joint effusion and some limitation of hip joint rotational movements. He had absent knee and ankle jerks.) Skin: No rashes, No breakdown Neuro: Other (He requires maximal assistance with transfers.) Vitals VITALS Vital Signs Date Time Temp Pulse Resp B/P (MAP) Pulse Ox O2 Delivery O2 Flow Rate FiO2 01/10/17 15:28 Nasal Cannula 2.0 01/10/17 14:42 97.6 72 20 184/71 (108) 97 97.6 Labs Labs Laboratory Tests Test 01/08/17 19:25 01/09/17 00:05 01/09/17 03:30 01/10/17 06:15 White Blood Count 7.8 x10^3/uL (4.0-11.0) 8.3 x10^3/uL (4.0-11.0) 14.9 x10^3/uL (4.0-11.0) Red Blood Count 4.24 x10^6/uL (4.30-5.70) 4.20 x10^6/uL (4.30-5.70) 4.17 x10^6/uL (4.30-5.70) Hemoglobin 12.3 g/dL (13.0-17.5) 12.4 g/dL (13.0-17.5) 11.8 g/dL (13.0-17.5) Hematocrit 36.9 % (39.0-53.0) 36.3 % (39.0-53.0) 36.9 % (39.0-53.0) Mean Corpuscular Volume 87 fL (79-100) 86 fL (79-100) 89 fL (79-100) Mean Corpuscular Hemoglobin 29 pg (25-35) 30 pg (25-35) 28 pg (25-35) Mean Corpuscular Hemoglobin Concent 33 g/dL (31-37) 34 g/dL (31-37) 32 g/dL (31-37) Red Cell Distribution Width 15.3 % (11.5-14.5) 15.3 % (11.5-14.5) 15.7 % (11.5-14.5) Platelet Count 230 x10^3/uL (140-400) 229 x10^3/uL (140-400) 243 x10^3/uL (140-400) Neutrophils (%) (Auto) 57 % (31-73) 94 % (31-73) 92 % (31-73) Lymphocytes (%) (Auto) 23 % (24-48) 5 % (24-48) 5 % (24-48) Monocytes (%) (Auto) 15 % (0-9) 1 % (0-9) 2 % (0-9) Eosinophils (%) (Auto) 5 % (0-3) 0 % (0-3) 0 % (0-3) Basophils (%) (Auto) 1 % (0-3) 0 % (0-3) 0 % (0-3) Neutrophils # (Auto) 4.4 x10^3uL (1.8-7.7) 7.8 x10^3uL (1.8-7.7) 13.8 x10^3uL (1.8-7.7) Lymphocytes # (Auto) 1.8 x10^3/uL (1.0-4.8) 0.4 x10^3/uL (1.0-4.8) 0.8 x10^3/uL (1.0-4.8) Monocytes # (Auto) 1.1 x10^3/uL (0.0-1.1) 0.0 x10^3/uL (0.0-1.1) 0.3 x10^3/uL (0.0-1.1) Eosinophils # (Auto) 0.4 x10^3/uL (0.0-0.7) 0.0 x10^3/uL (0.0-0.7) 0.0 x10^3/uL (0.0-0.7) Basophils # (Auto) 0.1 x10^3/uL (0.0-0.2) 0.0 x10^3/uL (0.0-0.2) 0.0 x10^3/uL (0.0-0.2) Sodium Level 143 mmol/L (136-145) 143 mmol/L (136-145) 144 mmol/L (136-145) Potassium Level 4.3 mmol/L (3.5-5.1) 4.8 mmol/L (3.5-5.1) 4.7 mmol/L (3.5-5.1) Chloride Level 108 mmol/L (98-107) 108 mmol/L (98-107) 110 mmol/L (98-107) Carbon Dioxide Level 25 mmol/L (21-32) 25 mmol/L (21-32) 26 mmol/L (21-32) Anion Gap 10 (6-14) 10 (6-14) 8 (6-14) Blood Urea Nitrogen 25 mg/dL (8-26) 23 mg/dL (8-26) 30 mg/dL (8-26) Creatinine 1.4 mg/dL (0.7-1.3) 1.3 mg/dL (0.7-1.3) 1.2 mg/dL (0.7-1.3) Estimated GFR (Cockcroft-Gault) 59.0 64.3 70.5 Glucose Level 109 mg/dL (70-99) 170 mg/dL (70-99) 137 mg/dL (70-99) Calcium Level 8.9 mg/dL (8.5-10.1) 8.9 mg/dL (8.5-10.1) 8.9 mg/dL (8.5-10.1) Troponin I Quantitative < 0.017 ng/mL (0.000-0.055) Nasal Screen MRSA (PCR) Positive (Negative) Segmented Neutrophils % 90 % (35-66) 93 % (35-66) Band Neutrophils % 2 % (0-9) 1 % (0-9) Lymphocytes % 8 % (24-48) 5 % (24-48) Platelet Estimate Adequate (ADEQUATE) Adequate (ADEQUATE) Monocytes % 1 % (0-10) BUN/Creatinine Ratio 25 (6-20) Total Bilirubin 0.3 mg/dL (0.2-1.0) Aspartate Amino Transf (AST/SGOT) 15 U/L (15-37) Alanine Aminotransferase (ALT/SGPT) 18 U/L (16-63) Alkaline Phosphatase 151 U/L (46-116) Total Protein 7.4 g/dL (6.4-8.2) Albumin 3.2 g/dL (3.4-5.0) Albumin/Globulin Ratio 0.8 (1.0-1.7) Triglycerides Level 45 mg/dL (0-150) Cholesterol Level 208 mg/dL (0-200) LDL Cholesterol, Calculated 149 mg/dL (0-100) VLDL Cholesterol, Calculated 9 mg/dL (0-40) Non-HDL Cholesterol Calculated 158 mg/dL (0-129) HDL Cholesterol 50 mg/dL (40-60) Cholesterol/HDL Ratio 4.2 Thyroid Stimulating Hormone (TSH) 0.219 uIU/mL (0.358-3.74) Laboratory Tests Test 01/10/17 06:15 White Blood Count 14.9 x10^3/uL (4.0-11.0) Red Blood Count 4.17 x10^6/uL (4.30-5.70) Hemoglobin 11.8 g/dL (13.0-17.5) Hematocrit 36.9 % (39.0-53.0) Mean Corpuscular Volume 89 fL (79-100) Mean Corpuscular Hemoglobin 28 pg (25-35) Mean Corpuscular Hemoglobin Concent 32 g/dL (31-37) Red Cell Distribution Width 15.7 % (11.5-14.5) Platelet Count 243 x10^3/uL (140-400) Neutrophils (%) (Auto) 92 % (31-73) Lymphocytes (%) (Auto) 5 % (24-48) Monocytes (%) (Auto) 2 % (0-9) Eosinophils (%) (Auto) 0 % (0-3) Basophils (%) (Auto) 0 % (0-3) Neutrophils # (Auto) 13.8 x10^3uL (1.8-7.7) Lymphocytes # (Auto) 0.8 x10^3/uL (1.0-4.8) Monocytes # (Auto) 0.3 x10^3/uL (0.0-1.1) Eosinophils # (Auto) 0.0 x10^3/uL (0.0-0.7) Basophils # (Auto) 0.0 x10^3/uL (0.0-0.2) Segmented Neutrophils % 93 % (35-66) Band Neutrophils % 1 % (0-9) Lymphocytes % 5 % (24-48) Monocytes % 1 % (0-10) Platelet Estimate Adequate (ADEQUATE) Sodium Level 144 mmol/L (136-145) Potassium Level 4.7 mmol/L (3.5-5.1) Chloride Level 110 mmol/L (98-107) Carbon Dioxide Level 26 mmol/L (21-32) Anion Gap 8 (6-14) Blood Urea Nitrogen 30 mg/dL (8-26) Creatinine 1.2 mg/dL (0.7-1.3) Estimated GFR (Cockcroft-Gault) 70.5 BUN/Creatinine Ratio 25 (6-20) Glucose Level 137 mg/dL (70-99) Calcium Level 8.9 mg/dL (8.5-10.1) Total Bilirubin 0.3 mg/dL (0.2-1.0) Aspartate Amino Transf (AST/SGOT) 15 U/L (15-37) Alanine Aminotransferase (ALT/SGPT) 18 U/L (16-63) Alkaline Phosphatase 151 U/L (46-116) Total Protein 7.4 g/dL (6.4-8.2) Albumin 3.2 g/dL (3.4-5.0) Albumin/Globulin Ratio 0.8 (1.0-1.7) Triglycerides Level 45 mg/dL (0-150) Cholesterol Level 208 mg/dL (0-200) LDL Cholesterol, Calculated 149 mg/dL (0-100) VLDL Cholesterol, Calculated 9 mg/dL (0-40) Non-HDL Cholesterol Calculated 158 mg/dL (0-129) HDL Cholesterol 50 mg/dL (40-60) Cholesterol/HDL Ratio 4.2 Thyroid Stimulating Hormone (TSH) 0.219 uIU/mL (0.358-3.74) Assessment/Plan Assessment/Plan Mobility and self care limitations from DJD of both knees,hips and shoulders and bilateral rotator cuff lesions and peripheral neuropathy. Rec: Agree with plans for transfer to assisted living facility when his SOB improves. He is not have any pain in his joints at present time. ROMAN GUNDERSON MD Jan 10, 2017 16:35
[2017-01-10] MEDS: cloNIDine HCL 0.1 MG TABLET PO PRN (17:17)
[2017-01-10] MEDS ORDERED: cloNIDine HCL 0.1 MG TABLET PO SCH (18:00)
[2017-01-10 19:57] VITALS: BP 166/63
[2017-01-10] MEDS: ENOXAPARIN 40 MG/0.4 ML SYRINGE. SQ SCH (20:23)
[2017-01-10] MEDS: ALPRAZolam 0.25 MG TABLET PO PRN ×2 (20:24→23:22)
[2017-01-10] MEDS: HYDROcodone/APAP 5/325MG 1 TAB TABLET PO PRN (23:24)
[2017-01-10] MEDS: ALBUTEROL SULFATE 2.5 MG/3 ML NEBU. NEB PRN (23:46)
[2017-01-11 00:29] VITALS: BP 164/85
[2017-01-11 07:03] VITALS: BP 173/88
[2017-01-11] MEDS: predniSONE 20 MG TABLET PO SCH (07:44)
[2017-01-11] MEDS: CEFPODOXIME PROXETIL 100 MG TABLET. PO SCH ×2 (07:44→19:50)
[2017-01-11] MEDS: ASPIRIN ENTERIC COATED 81 MG TABLET.DR. PO SCH (07:44)
[2017-01-11] MEDS: METOPROLOL TART IMMED RELEASE 25 MG TABLET. PO SCH ×2 (07:46→19:52)
[2017-01-11] MEDS: IPRATRPIUM/ALBUTEROL 0.5/2.5MG 3 ML NEBU. NEB SCH ×4 (08:00→20:00)
--- NOTE | 2017-01-11 10:29 | PDOC ---
PROGRESS NOTES Subjective Subjective He denies any pain. Objective Objective Vital Signs Date Time Temp Pulse Resp B/P (MAP) Pulse Ox O2 Delivery O2 Flow Rate FiO2 01/11/17 08:00 Nasal Cannula 2.0 01/11/17 07:46 72 173/88 01/11/17 07:03 97.4 22 95 97.4 Intake and Output 01/11/17 06:59 Intake Total 700 ml Output Total 465 ml Balance 235 ml Intake Oral 700 ml Output Urine Total 465 ml # Voids 6 # Bowel Movements 1 Physical Exam Physical Exam He is sitting up in bedside recliner and continues with stiffness and weakness of both shoulders and stiff knees and hips and he requires physical assistance with mobility. Assessment Assessment Problems Medical Problems: (1) Bronchitis Status: Acute (2) COPD exacerbation Status: Acute (3) Hypoxia Status: Acute Plan Plan of Care To assisted living facility when medically stable. Comment Review of Relevant I have reviewed the following items rosy (where applicable) has been applied. Labs Laboratory Tests Test 01/10/17 06:15 White Blood Count 14.9 x10^3/uL (4.0-11.0) Red Blood Count 4.17 x10^6/uL (4.30-5.70) Hemoglobin 11.8 g/dL (13.0-17.5) Hematocrit 36.9 % (39.0-53.0) Mean Corpuscular Volume 89 fL (79-100) Mean Corpuscular Hemoglobin 28 pg (25-35) Mean Corpuscular Hemoglobin Concent 32 g/dL (31-37) Red Cell Distribution Width 15.7 % (11.5-14.5) Platelet Count 243 x10^3/uL (140-400) Neutrophils (%) (Auto) 92 % (31-73) Lymphocytes (%) (Auto) 5 % (24-48) Monocytes (%) (Auto) 2 % (0-9) Eosinophils (%) (Auto) 0 % (0-3) Basophils (%) (Auto) 0 % (0-3) Neutrophils # (Auto) 13.8 x10^3uL (1.8-7.7) Lymphocytes # (Auto) 0.8 x10^3/uL (1.0-4.8) Monocytes # (Auto) 0.3 x10^3/uL (0.0-1.1) Eosinophils # (Auto) 0.0 x10^3/uL (0.0-0.7) Basophils # (Auto) 0.0 x10^3/uL (0.0-0.2) Segmented Neutrophils % 93 % (35-66) Band Neutrophils % 1 % (0-9) Lymphocytes % 5 % (24-48) Monocytes % 1 % (0-10) Platelet Estimate Adequate (ADEQUATE) Sodium Level 144 mmol/L (136-145) Potassium Level 4.7 mmol/L (3.5-5.1) Chloride Level 110 mmol/L (98-107) Carbon Dioxide Level 26 mmol/L (21-32) Anion Gap 8 (6-14) Blood Urea Nitrogen 30 mg/dL (8-26) Creatinine 1.2 mg/dL (0.7-1.3) Estimated GFR (Cockcroft-Gault) 70.5 BUN/Creatinine Ratio 25 (6-20) Glucose Level 137 mg/dL (70-99) Calcium Level 8.9 mg/dL (8.5-10.1) Total Bilirubin 0.3 mg/dL (0.2-1.0) Aspartate Amino Transf (AST/SGOT) 15 U/L (15-37) Alanine Aminotransferase (ALT/SGPT) 18 U/L (16-63) Alkaline Phosphatase 151 U/L (46-116) Total Protein 7.4 g/dL (6.4-8.2) Albumin 3.2 g/dL (3.4-5.0) Albumin/Globulin Ratio 0.8 (1.0-1.7) Triglycerides Level 45 mg/dL (0-150) Cholesterol Level 208 mg/dL (0-200) LDL Cholesterol, Calculated 149 mg/dL (0-100) VLDL Cholesterol, Calculated 9 mg/dL (0-40) Non-HDL Cholesterol Calculated 158 mg/dL (0-129) HDL Cholesterol 50 mg/dL (40-60) Cholesterol/HDL Ratio 4.2 Thyroid Stimulating Hormone (TSH) 0.219 uIU/mL (0.358-3.74) Microbiology 01/10/17 Gram Stain - Final, Complete Medications Current Medications Albuterol/ Ipratropium (Duoneb) 3 ml 1X ONCE NEB Last administered on t 18:37; Start 01/08/17 at 18:30; Stop 01/08/17 at 18:31; Status DC Sodium Chloride 500 ml @ 500 mls/hr 1X ONCE IV Last administered on 19:18; Start 01/08/17 at 19:00; Stop 01/08/17 at 19:59; Status DC Methylprednisolone Sodium Succinate (SOLU-Medrol 125MG VIAL) 125 mg 1X ONCE IV Last administered on 01/08/17 19:17; Start 01/08/17 at 19:00; Stop 01/08/17 at 19:01; Status DC Albuterol/ Ipratropium (Duoneb) 3 ml 1X ONCE NEB Last administered on 20:55; Start 01/08/17 at 19:00; Stop 01/08/17 at 19:01; Status DC Diphenhydramine HCl (Benadryl) 25 mg 1X ONCE IVP Last administered on 21:47; Start 01/08/17 at 22:00; Stop 01/08/17 at 22:01; Status DC Azithromycin (Zithromax) 500 mg 1X ONCE PO Last administered on 01/09/17 00: 20; Start 01/08/17 at 22:30; Stop 01/08/17 at 22:31; Status DC Acetaminophen (Tylenol) 650 mg PRN Q6HRS PRN PO MILD PAIN / TEMP; Start at 23:45 Aspirin (Ecotrin) 81 mg DAILYWBKFT PO Last administered on 01/11/17 07:44; Start 01/09/17 at 08:00 Acetaminophen/ Hydrocodone Bitart (Lortab 5/325) 1 tab PRN Q6HRS PRN PO MODERATE PAIN Last administered on 01/10/17 23:24; Start 01/08/17 at 23:45 Metoprolol Tartrate (Lopressor) 12.5 mg BID PO Last administered on 01/11/17 07:46; Start 01/09/17 at 09:00 Sodium Chloride 1,000 ml @ 75 mls/hr [id number] IV Last administered on 04:09; Start 01/08/17 at 23:45; Stop 01/10/17 at 10:47; Status DC Albuterol/ Ipratropium (Duoneb) 3 ml RTQID NEB Last administered on 01/10/17 19:26; Start 01/09/17 at 08:00 Albuterol Sulfate (Ventolin Neb Soln) 2.5 mg PRN QID PRN NEB SHORTNESS OF BREATH Last administered on 01/10/17 23:46; Start 01/08/17 at 23:45 Methylprednisolone Sodium Succinate (SOLU-Medrol 125MG VIAL) 60 mg Q8HRS IV Last administered on 01/10/17 05:51; Start 01/09/17 at 06:00; Stop 01/10/17 at 10:47; Status DC Ceftriaxone Sodium 1 gm/ Sodium Chloride 50 ml @ 100 mls/hr QHS IV Last administered on 01/09/17 21:24; Start 01/09/17 at 00:00; Stop 01/10/17 at 10:47 ; Status DC Enoxaparin Sodium (Lovenox 40mg Syringe) 40 mg QHS SQ Last administered on 01/10 20:23; Start 01/09/17 at 00:00 Prednisone (Prednisone) 40 mg DAILY PO Last administered on 01/11/17 07:44; Start 01/11/17 at 09:00 Prednisone (Prednisone) 50 mg 1X ONCE PO Last administered on 01/10/17 11:23 ; Start 01/10/17 at 10:45; Stop 01/10/17 at 10:49; Status DC Cefpodoxime Proxetil (Vantin) 200 mg BID PO Last administered on 01/11/17 07: 44; Start 01/10/17 at 10:45 Alprazolam (Xanax) 0.25 mg BID PRN PO ANXIETY / AGITATION Last administered on 01/10/17 23:22; Start 01/10/17 at 16:45 Clonidine HCl (Catapres) 0.1 mg Q6HRS PO ; Start 01/10/17 at 18:00; Status Cancel Clonidine HCl (Catapres) 0.1 mg PRN Q6HRS PRN PO HYPERTENSION, SEE COMMENTS Last administered on 01/10/17 17:17; Start 01/10/17 at 17:15 Active Scripts Active Prednisone 20 Mg Tablet 3 Tab PO DAILY 5 Days [Metoprolol Tartrate] 25 MG Tablet 12.5 Mg PO BID [Hydrocodone/Acetaminophen] 1 TAB Tablet 1 Tab PO PRN Q6HRS PRN [Aspirin] 81 MG Tablet. 81 Mg PO DAILYWBKFT Tylenol (Acetaminophen) 325 Mg Tablet 650 Mg PO PRN Q6HRS PRN Reported Amlodipine Besylate 10 Mg Tablet 10 Mg PO DAILY Losartan Potassium 100 Mg Tablet 100 Mg PO DAILY Lactulose 20 Gm/30 Ml Solution 15 Gm PO DAILY Finasteride 5 Mg Tablet 1 Tab PO DAILY [place] 5-325 Tablet (Acetaminophen/Hydrocodone Bitart) 1 Each Tablet 1 Tab PO PRN Q6HRS PRN Artificial Tears Eye Drops (Dextran 70/Hypromellose) 15 Ml Drops 1 Drop EACHEYE PRN DAILY PRN Miralax (Polyethylene Glycol 3350) 17 Gm Powd.pack 1 Packet PO PRN DAILY PRN Clonazepam 0.5 Mg Tablet 1 Tab PO HS Vitals/I & O Vital Sign - Last 24 Hours 01/10/17 01/10/17 01/10/17 01/10/17 10:44 11:02 14:42 15:28 Temp 98.4 97.6 98.4 97.6 Pulse 87 72 Resp 22 20 B/P (MAP) 195/86 (122) 184/71 (108) Pulse Ox 95 96 97 O2 Delivery Nasal Cannula Nasal Cannula Nasal Cannula Nasal Cannula O2 Flow Rate 2.0 2.0 2.0 2.0 01/10/17 01/10/17 01/10/17 01/10/17 17:17 19:26 19:57 20:00 Temp 98.2 98.2 Pulse 72 84 Resp 20 B/P (MAP) 184/71 166/63 (97) Pulse Ox 95 96 O2 Delivery Nasal Cannula Nasal Cannula Nasal Cannula O2 Flow Rate 2.0 2.0 2.0 01/10/17 01/10/17 01/10/17 01/10/17 20:24 23:00 23:24 23:47 Pulse 72 B/P (MAP) 166/63 Pulse Ox 94 O2 Delivery Nasal Cannula Nasal Cannula Room Air O2 Flow Rate 2.0 01/11/17 01/11/17 01/11/17 01/11/17 00:29 00:32 03:56 07:03 Temp 98.2 97.4 98.2 97.4 Pulse 86 72 Resp 16 16 22 B/P (MAP) 164/85 (111) 173/88 (116) Pulse Ox 93 95 O2 Delivery Nasal Cannula Nasal Cannula Nasal Cannula Nasal Cannula O2 Flow Rate 2.0 2.0 2.0 2.0 01/11/17 01/11/17 07:46 08:00 Pulse 72 B/P (MAP) 173/88 O2 Delivery Nasal Cannula O2 Flow Rate 2.0 Intake and Output 01/10/17 01/10/17 01/11/17 14:59 22:59 06:59 Intake Total 700 ml 0 ml Output Total 465 ml Balance 700 ml -465 ml ROMAN GUNDERSON MD Jan 11, 2017 10:29
[2017-01-11 10:43] VITALS: BP 187/94
[2017-01-11] MEDS: cloNIDine HCL 0.1 MG TABLET PO PRN (10:45)
[2017-01-11] MEDS: HYDROcodone/APAP 5/325MG 1 TAB TABLET PO PRN ×2 (10:45→19:49)
[2017-01-11] MEDS: ALPRAZolam 0.25 MG TABLET PO PRN ×2 (10:45→19:49)
--- NOTE | 2017-01-11 12:28 | PDOC ---
PROGRESS NOTES Subjective Subjective doing well ,want to go back to assisted facility Objective Objective Vital Signs Date Time Temp Pulse Resp B/P (MAP) Pulse Ox O2 Delivery O2 Flow Rate FiO2 01/11/17 11:53 95 Room Air 01/11/17 10:45 74 187/94 01/11/17 10:43 97.8 20 2.0 97.8 Intake and Output 01/11/17 07:00 Intake Total 700 ml Output Total 465 ml Balance 235 ml Intake Oral 700 ml Output Urine Total 465 ml # Voids 6 # Bowel Movements 1 Physical Exam Abdomen: Normal bowel sounds, Soft Heart: Regular rate, Normal S1, Normal S2 Extremities: No clubbing, Other (He had crepitus on ROM of both knees and shoulders with significant weakness of rotator cuff muscles blaterally and bilateral knee joint effusion and some limitation of hip joint rotational movements. He had absent knee and ankle jerks.) General: Alert, Oriented X3, Cooperative, No acute distress HEENT: PERRLA, Mucous membr. moist/pink Lungs: Normal air movement MUSCULOSKELETAL: Osteoarthritic changes both hands Neck: Supple Neuro: Normal speech, Other (He requires maximal assistance with transfers.) Psych/Mental Status: Mood NL Skin: No rashes, No breakdown Diagnosis Problem List Problems Medical Problems: (1) Bronchitis Status: Acute (2) COPD exacerbation Status: Acute (3) Hypoxia Status: Acute Assessment Assessment Problems Medical Problems: (1) Bronchitis Status: Acute (2) COPD exacerbation Status: Acute (3) Hypoxia Status: Acute Assessment COPD with ac exacerbation htn arthritis Plan Plan: d/c back to assisted facility d/civ fluids d/c iv steroids duoneb d/c iv rocephin oral ventin and prednisone Problems: Plan Plan of Care Problems Medical Problems: (1) Bronchitis Status: Acute (2) COPD exacerbation Status: Acute (3) Hypoxia Status: Acute Comment Review of Relevant I have reviewed the following items rosy (where applicable) has been applied. Labs Microbiology 01/10/17 Gram Stain - Final, Complete Medications Current Medications Alprazolam (Xanax) 0.25 mg BID PRN PO ANXIETY / AGITATION Last administered on 01/11/17 10:45; Start 01/10/17 at 16:45 Clonidine HCl (Catapres) 0.1 mg PRN Q6HRS PRN PO HYPERTENSION, SEE COMMENTS Last administered on 7/14/17at 10:45; Start 01/10/17 at 17:15 Clonidine HCl (Catapres) 0.1 mg Q6HRS PO ; Start 01/10/17 at 18:00; Status Cancel Prednisone (Prednisone) 40 mg DAILY PO Last administered on 01/11/17t 07:44; Start 01/11/17 at 09:00 Vitals/I & O Vital Sign - Last 24 Hours 01/10/17 01/10/17 01/10/17 01/10/17 14:42 15:28 17:17 19:26 Temp 97.6 97.6 Pulse 72 72 Resp 20 B/P (MAP) 184/71 (108) 184/71 Pulse Ox 97 95 O2 Delivery Nasal Cannula Nasal Cannula Nasal Cannula O2 Flow Rate 2.0 2.0 2.0 01/10/17 01/10/17 01/10/17 01/10/17 19:57 20:00 20:24 23:00 Temp 98.2 98.2 Pulse 84 72 Resp 20 B/P (MAP) 166/63 (97) 166/63 Pulse Ox 96 O2 Delivery Nasal Cannula Nasal Cannula Nasal Cannula O2 Flow Rate 2.0 2.0 01/10/17 01/10/17 01/11/17 01/11/17 23:24 23:47 00:29 00:32 Temp 98.2 98.2 Pulse 86 Resp 16 B/P (MAP) 164/85 (111) Pulse Ox 94 93 O2 Delivery Nasal Cannula Room Air Nasal Cannula O2 Flow Rate 2.0 2.0 2.0 01/11/17 01/11/17 01/11/17 01/11/17 03:56 07:03 07:46 08:00 Temp 97.4 97.4 Pulse 72 72 Resp 16 22 B/P (MAP) 173/88 (116) 173/88 Pulse Ox 95 O2 Delivery Nasal Cannula Nasal Cannula Nasal Cannula O2 Flow Rate 2.0 2.0 2.0 01/11/17 01/11/17 01/11/17 01/11/17 10:43 10:45 10:45 11:32 Temp 97.8 97.8 Pulse 74 74 Resp 20 B/P (MAP) 187/94 (125) 187/94 Pulse Ox 95 O2 Delivery Nasal Cannula Room Air Room Air O2 Flow Rate 2.0 01/11/17 11:53 Pulse Ox 95 O2 Delivery Room Air Intake and Output 01/10/17 01/10/17 01/11/17 15:00 23:00 07:00 Intake Total 700 ml 0 ml Output Total 465 ml Balance 700 ml -465 ml JAMES VERDIN MD Jan 11, 2017 12:28
[2017-01-11 15:00] VITALS: BP 142/62
[2017-01-11] MEDS: ALBUTEROL SULFATE 2.5 MG/3 ML NEBU. NEB PRN (16:26)
[2017-01-11 19:00] VITALS: BP 140/68
[2017-01-11] MEDS: ENOXAPARIN 40 MG/0.4 ML SYRINGE. SQ SCH (19:50)
[2017-01-11 23:00] VITALS: BP 158/67
[2017-01-12] MEDS: ALPRAZolam 0.25 MG TABLET PO PRN (02:20)
[2017-01-12] MEDS: HYDROcodone/APAP 5/325MG 1 TAB TABLET PO PRN (02:20)
[2017-01-12 03:00] VITALS: BP 148/60
[2017-01-12] MEDS: ALBUTEROL SULFATE 2.5 MG/3 ML NEBU. NEB PRN (05:23)
[2017-01-12 07:00] VITALS: BP 166/91
[2017-01-12] MEDS: IPRATRPIUM/ALBUTEROL 0.5/2.5MG 3 ML NEBU. NEB SCH ×2 (07:28→12:11)
[2017-01-12] MEDS: METOPROLOL TART IMMED RELEASE 25 MG TABLET. PO SCH (08:49)
[2017-01-12] MEDS: predniSONE 20 MG TABLET PO SCH (08:51)
[2017-01-12] MEDS: ASPIRIN ENTERIC COATED 81 MG TABLET.DR. PO SCH (08:51)
[2017-01-12] MEDS: CEFPODOXIME PROXETIL 100 MG TABLET. PO SCH (08:51)
--- NOTE | 2017-01-12 08:54 | PDOC ---
PROGRESS NOTES Subjective Subjective He is having some difficulty with his breathing while eating breakfast. Objective Objective Vital Signs Date Time Temp Pulse Resp B/P (MAP) Pulse Ox O2 Delivery O2 Flow Rate FiO2 01/12/17 07:28 95 Nasal Cannula 2.0 01/12/17 07:00 96.8 77 15 166/91 (116) 96.8 Intake and Output 01/12/17 07:00 Intake Total 640 ml Output Total 250 ml Balance 390 ml Intake Oral 640 ml Output Urine Total 250 ml # Voids 3 # Bowel Movements 1 Physical Exam Physical Exam He continues to require maximal help with transfers and his assisted living facility wants him to get better with transfers before they can accept him. Assessment Assessment Problems Medical Problems: (1) Bronchitis Status: Acute (2) COPD exacerbation Status: Acute (3) Hypoxia Status: Acute Plan Plan of Care To continue present physical and occupational therapy follow up to help with his transfers and agree with plans for SNF transfers when arrangements are completed. Comment Review of Relevant I have reviewed the following items rosy (where applicable) has been applied. Labs Microbiology 01/10/17 Gram Stain - Final, Complete Medications Current Medications Albuterol/ Ipratropium (Duoneb) 3 ml 1X ONCE NEB Last administered on 18:37; Start 01/08/17 at 18:30; Stop 01/08/17 at 18:31; Status DC Sodium Chloride 500 ml @ 500 mls/hr 1X ONCE IV Last administered on 19:18; Start 01/08/17 at 19:00; Stop 01/08/17 at 19:59; Status DC Methylprednisolone Sodium Succinate (SOLU-Medrol 125MG VIAL) 125 mg 1X ONCE IV Last administered on 01/08/17 19:17; Start 01/08/17 at 19:00; Stop 01/08/17 at 19:01; Status DC Albuterol/ Ipratropium (Duoneb) 3 ml 1X ONCE NEB Last administered on 20:55; Start 01/08/17 at 19:00; Stop 01/08/17 at 19:01; Status DC Diphenhydramine HCl (Benadryl) 25 mg 1X ONCE IVP Last administered on 21:47; Start 01/08/17 at 22:00; Stop 01/08/17 at 22:01; Status DC Azithromycin (Zithromax) 500 mg 1X ONCE PO Last administered on 01/09/17 00: 20; Start 01/08/17 at 22:30; Stop 01/08/17 at 22:31; Status DC Acetaminophen (Tylenol) 650 mg PRN Q6HRS PRN PO MILD PAIN / TEMP; Start at 23:45 Aspirin (Ecotrin) 81 mg [id number] PO Last administered on 01/11/17 07:44; Start 01/09/17 at 08:00 Acetaminophen/ Hydrocodone Bitart (Lortab 5/325) 1 tab PRN Q6HRS PRN PO MODERATE PAIN Last administered on 01/12/17 02:20; Start 01/08/17 at 23:45 Metoprolol Tartrate (Lopressor) 12.5 mg BID PO Last administered on 01/11/17 19:52; Start 01/09/17 at 09:00 Sodium Chloride 1,000 ml @ 75 mls/hr [id number] IV Last administered on 04:09; Start 01/08/17 at 23:45; Stop 01/10/17 at 10:47; Status DC Albuterol/ Ipratropium (Duoneb) 3 ml RTQID NEB Last administered on 01/12/17 07:28; Start 01/09/17 at 08:00 Albuterol Sulfate (Ventolin Neb Soln) 2.5 mg PRN QID PRN NEB SHORTNESS OF BREATH Last administered on 01/12/17 05:23; Start 01/08/17 at 23:45 Methylprednisolone Sodium Succinate (SOLU-Medrol 125MG VIAL) 60 mg Q8HRS IV Last administered on 01/10/17 05:51; Start 01/09/17 at 06:00; Stop 01/10/17 at 10:47; Status DC Ceftriaxone Sodium 1 gm/ Sodium Chloride 50 ml @ 100 mls/hr QHS IV Last administered on 01/09/17 21:24; Start 01/09/17 at 00:00; Stop 01/10/17 at 10:47 ; Status DC Enoxaparin Sodium (Lovenox 40mg Syringe) 40 mg QHS SQ Last administered on 01/11 19:50; Start 01/09/17 at 00:00 Prednisone (Prednisone) 40 mg DAILY PO Last administered on 01/11/17 07:44; Start 01/11/17 at 09:00 Prednisone (Prednisone) 50 mg 1X ONCE PO Last administered on 01/10/17 11:23 ; Start 01/10/17 at 10:45; Stop 01/10/17 at 10:49; Status DC Cefpodoxime Proxetil (Vantin) 200 mg BID PO Last administered on 01/11/17 19: 50; Start 01/10/17 at 10:45 Alprazolam (Xanax) 0.25 mg BID PRN PO ANXIETY / AGITATION Last administered on 01/12/17 02:20; Start 01/10/17 at 16:45 Clonidine HCl (Catapres) 0.1 mg Q6HRS PO ; Start 01/10/17 at 18:00; Status Cancel Clonidine HCl (Catapres) 0.1 mg PRN Q6HRS PRN PO HYPERTENSION, SEE COMMENTS Last administered on 01/11/17 10:45; Start 01/10/17 at 17:15 Active Scripts Active Prednisone 20 Mg Tablet 3 Tab PO DAILY 5 Days [Metoprolol Tartrate] 25 MG Tablet 12.5 Mg PO BID [Hydrocodone/Acetaminophen] 1 TAB Tablet 1 Tab PO PRN Q6HRS PRN [Aspirin] 81 MG Tablet.dr 81 Mg PO DAILYWBKFT Tylenol (Acetaminophen) 325 Mg Tablet 650 Mg PO PRN Q6HRS PRN Reported Amlodipine Besylate 10 Mg Tablet 10 Mg PO DAILY Losartan Potassium 100 Mg Tablet 100 Mg PO DAILY Lactulose 20 Gm/30 Ml Solution 15 Gm PO DAILY Finasteride 5 Mg Tablet 1 Tab PO DAILY Meridian 5-325 Tablet (Acetaminophen/Hydrocodone Bitart) 1 Each Tablet 1 Tab PO PRN Q6HRS PRN Artificial Tears Eye Drops (Dextran 70/Hypromellose) 15 Ml Drops 1 Drop EACHEYE PRN DAILY PRN Miralax (Polyethylene Glycol 3350) 17 Gm Powd.pack 1 Packet PO PRN DAILY PRN Clonazepam 0.5 Mg Tablet 1 Tab PO HS Vitals/I & O Vital Sign - Last 24 Hours 01/11/17 01/11/17 01/11/17 01/11/17 10:43 10:45 10:45 11:53 Temp 97.8 97.8 Pulse 74 74 Resp 20 B/P (MAP) 187/94 (125) 187/94 Pulse Ox 95 95 O2 Delivery Nasal Cannula Room Air Room Air O2 Flow Rate 2.0 01/11/17 01/11/17 01/11/17 01/11/17 15:00 16:27 19:00 19:49 Temp 98.4 97.8 98.4 97.8 Pulse 69 80 Resp 20 20 B/P (MAP) 142/62 (88) 140/68 (92) Pulse Ox 95 95 O2 Delivery Nasal Cannula Room Air Nasal Cannula Nasal Cannula O2 Flow Rate 2.0 2.0 2.0 01/11/17 01/11/17 01/11/17 01/11/17 19:52 20:00 20:10 23:00 Temp 97.8 97.8 Pulse 80 90 Resp 20 B/P (MAP) 140/68 158/67 (97) Pulse Ox 98 O2 Delivery Nasal Cannula Room Air Nasal Cannula O2 Flow Rate 2.0 2.0 01/12/17 01/12/17 01/12/17 01/12/17 02:20 03:00 03:26 05:22 Temp 97.8 97.8 Pulse 80 Resp 20 B/P (MAP) 148/60 (89) Pulse Ox 98 O2 Delivery Nasal Cannula Nasal Cannula Nasal Cannula Room Air O2 Flow Rate 2.0 2.0 2.0 01/12/17 01/12/17 07:00 07:28 Temp 96.8 96.8 Pulse 77 Resp 15 B/P (MAP) 166/91 (116) Pulse Ox 98 95 O2 Delivery Nasal Cannula Nasal Cannula O2 Flow Rate 2.0 2.0 Intake and Output 01/11/17 01/11/17 01/12/17 15:00 23:00 07:00 Intake Total 240 ml 400 ml 0 ml Output Total 150 ml 100 ml Balance 240 ml 250 ml -100 ml ROMAN GUNDERSON MD Jan 12, 2017 08:54
[2017-01-12 10:50] VITALS: BP 137/89
--- NOTE | 2017-01-12 11:43 | PDOC ---
IM PROGRESS NOTES- Subjective Subjective No dyspnea.Admits to cough. Objective Vitals Vital Signs Date Time Temp Pulse Resp B/P (MAP) Pulse Ox O2 Delivery O2 Flow Rate FiO2 01/12/17 10:50 97.8 89 20 137/89 (105) 98 Nasal Cannula 2.0 97.8 Input & Output Intake and Output 01/12/17 07:00 Intake Total 640 ml Output Total 250 ml Balance 390 ml Intake Oral 640 ml Output Urine Total 250 ml # Voids 3 # Bowel Movements 1 Physical Exam Physical Exam General appearance - alert,chronically ill appearing, and in no distress Head - normal Chest - decreased air entry Heart - S1 and S2 normal Abdomen - soft, nontender, nondistended, no masses or organomegaly Neurological - alert,weak Musculoskeletal - no muscular tenderness noted Extremities - no pedal edema Skin - warm and dry Assessment Assessment Problems Medical Problems: (1) Bronchitis Status: Acute (2) COPD exacerbation Status: Acute (3) Hypoxia Status: Acute Assessment COPD with ac exacerbation htn arthritis Plan Plan: d/c back to assisted facility d/civ fluids d/c iv steroids duoneb d/c iv rocephin oral ventin and prednisone ok to discharge to SNF. Patient was not accepted by assisted living. with his weakness,memory and lung issues transfer to SNF. Discharge Management - 35 minutes. Plan Plan For more details regarding further plans, please refer to the orders. NORMA ERNST MD Jan 12, 2017 11:43
[2017-01-12 14:46] VITALS: BP 146/92
--- NOTE | 2017-01-14 12:55 | PDOC3 ---
IM DISCHARGE SUMMARY Date of Admission Date of Admission Date of Admission: Jan 08, 2017 at 21:57 Date of Discharge Date of Discharge 01/12/17 Primary Diagnosis Primary Diagnosis Problems Medical Problems: (1) Bronchitis Status: Acute (2) COPD exacerbation Status: Acute (3) Hypoxia Status: Acute Problems: Consults Consults [facility] -rehab Brief hospital course Brief hospital course This 81 year old male who presented with sob from assisted care facility, found to have copd exacerbation ,treated with steroids and iv antibiotics, his condition improved, he has been moved to [place] from assisted facility,m needs lot of help . For more details regarding the past history, family history, social history, surgical history and other details, please refer to History and Physical. Allergy Allergies Coded Allergies Type Severity Reaction Last Updated Verified I S O L A T I O N *CONTACT* Allergy Unknown 01/10/17 Yes No Known Medication Allergies Allergy Unknown 01/10/17 Yes Follow up in 5 days. DISPOSITION: Care Home facility Comments Discharge Management - 35 minutes. For other details please refer to discharge instructions JAMES VERDIN MD Jan 14, 2017 12:55
== END 2017-01-12 14:40 | DRG 190 ==
LOC: EDBD 18:08 → ER 18:08 → 6 SOUTH 21:57
PROVIDERS: ADMIT Internal Medicine; ATTEND Internal Medicine
DX: J44.0 Chronic obstructive pulmonary disease with (acute) lower respiratory infection (principal); J96.20 Acute and chronic respiratory failure, unspecified whether with hypoxia or hypercapnia; E44.1 Mild protein-calorie malnutrition; J44.1 Chronic obstructive pulmonary disease with (acute) exacerbation; J20.9 Acute bronchitis, unspecified; D64.9 Anemia, unspecified; N40.0 Benign prostatic hyperplasia without lower urinary tract symptoms; G62.9 Polyneuropathy, unspecified; I48.91 Unspecified atrial fibrillation; M17.0 Bilateral primary osteoarthritis of knee; I10 Essential (primary) hypertension; Z87.891 Personal history of nicotine dependence; Z87.440 Personal history of urinary (tract) infections; Z86.010 Personal history of colon polyps; Z68.30 Body mass index [BMI] 30.0-30.9, adult
CPT/HCPCS: 36415; 71010; 80048; 80053; 80061; 84443; 84484; 85007; 85027; 87070; 87205; 87641; 93005; 94250; 94640; 94760; 96361; 96374; 96375; J0696; J1200; J1650; J2930; J7030; J7040; J7512; J7613; J7620; Q0144; 97110; 97116; 99285-25

== ENCOUNTER → 2017-08-23 | Outpatient (CLI) | payer OTHER | END | disposition home or self-care (01) | LOC: ECHO 12:54 | DX: I11.9 Hypertensive heart disease without heart failure (principal); I36.1 Nonrheumatic tricuspid (valve) insufficiency; E66.9 Obesity, unspecified | CPT/HCPCS: 93306 ==

== ENCOUNTER 2018-10-15 02:06 | Inpatient (IN) | payer OTHER ==
[2018-10-15] VITALS (7 sets, daily range): BP systolic 106–187; BP diastolic 57–88
[~2018-10-15] VITALS: Ht 172.7 cm; Wt 89.0 kg
[~2018-10-15 02:06] MED LIST changes: +AMLO10TA8 PO; +CLON0.5T11 PO; +DEXT15DR5 EACHEYE; +FINA5TAB4 PO; +HYDR-3164 PO; +LACT20SO PO; +LOSA100T14 PO; +POLY17PO29 PO
[2018-10-15] MEDS ORDERED: MORPHINE SULFATE 2 MG/ML VIAL. IV/SQ PRN (02:15)
--- NOTE | 2018-10-15 02:19 | PHYS DOC ---
Past Medical History Past Medical History: Arthritis, Arrhythmia, COPD, Hypertension, Renal Disease , Renal Failure, UTI, Other Additional Past Medical Histor: DJD, COLON POLYPS, HEMORRHOIDS, BPH, AFLUTTER Past Surgical History: No Surgical History Alcohol Use: Occasionally Drug Use: None Adult General Chief Complaint Chief Complaint: CHEST PAIN HPI HPI Patient is an 83-year-old male who presents with complaint of chest pain shortness of breath started this morning at about 1:00. Patient rates pain as being moderate. Patient was given 4 baby aspirin and nitroglycerin prior to arrival but states that pain is no better after nitroglycerin. He states that symptom onset was at rest. He denies any nausea, vomiting or diaphoresis. Patient states that nothing improves his symptoms. Review of Systems Review of Systems Constitutional: Denies fever or chills [] Respiratory: Complains of shortness of breath [] Cardiovascular: No additional information not addressed in HPI [] GI: Denies abdominal pain, nausea, vomiting or diarrhea [] Neurologic: Denies headache, focal weakness or sensory changes [] All other systems were reviewed and found to be within normal limits, except as documented in this note. Current Medications Current Medications Current Medications Medications (Trade) Dose Ordered Sig/Maxx Start Time Stop Time Status Last Admin Dose Admin Diphenhydramine HCl (Benadryl) 25 mg 1X ONCE 10/15/18 04:30 10/15/18 04:31 DC 10/15/18 04:07 25 MG Info (CONTRAST GIVEN -- Rx MONITORING) 1 each PRN DAILY PRN 10/15/18 03:45 10/17/18 03:44 Iohexol (Omnipaque 300 Mg/ml) 75 ml 1X ONCE 10/15/18 04:00 10/15/18 04:01 DC 10/15/18 03:46 75 ML Morphine Sulfate (Morphine Sulfate) 2 mg PRN Q15MIN PRN 10/15/18 02:15 10/16/18 02:14 10/15/18 04:09 2 MG Ondansetron HCl (Zofran) 4 mg 1X ONCE 10/15/18 03:00 10/15/18 03:01 DC Allergies Allergies Allergies Coded Allergies Type Severity Reaction Last Updated Verified I S O L A T I O N *CONTACT* Allergy Unknown 01/10/17 Yes No Known Medication Allergies Allergy Unknown 01/10/17 Yes Physical Exam Physical Exam Constitutional: Well developed, well nourished, no acute distress, non-toxic appearance. [] HENT: Normocephalic, atraumatic, bilateral external ears normal, oropharynx moist, no oral exudates, nose normal. [] Eyes: PERRLA, EOMI, conjunctiva normal, no discharge. [] Neck: Normal range of motion, no tenderness, supple, no stridor. [] Cardiovascular: Regular rate and rhythm[] Lungs & Thorax: Breathing is labored. Fine rales are noted in the lung bases to auscultation [] Abdomen: Bowel sounds normal, soft, with mid to lower abdominal tenderness. [] Skin: Warm, dry, no erythema, no rash. [] Extremities: No tenderness, no cyanosis, no clubbing, ROM intact. There is mild pitting edema. [] Neurologic: Awake and alert, no focal deficits noted. [] Current Patient Data Vital Signs Vital Signs Date Time Temp Pulse Resp B/P (MAP) Pulse Ox O2 Delivery O2 Flow Rate FiO2 10/15/18 04:09 18 97 Room Air 10/15/18 03:58 76 127/82 (97) 10/15/18 02:20 98.5 98.5 Lab Values Laboratory Tests Test 10/15/18 02:21 White Blood Count 6.8 x10^3/uL (4.0-11.0) Red Blood Count 4.38 x10^6/uL (4.30-5.70) Hemoglobin 12.3 g/dL (13.0-17.5) L Hematocrit 37.9 % (39.0-53.0) L Mean Corpuscular Volume 87 fL (79-100) Mean Corpuscular Hemoglobin 28 pg (25-35) Mean Corpuscular Hemoglobin Concent 33 g/dL (31-37) Red Cell Distribution Width 15.0 % (11.5-14.5) H Platelet Count 217 x10^3/uL (140-400) Neutrophils (%) (Auto) 65 % (31-73) Lymphocytes (%) (Auto) 20 % (24-48) L Monocytes (%) (Auto) 8 % (0-9) Eosinophils (%) (Auto) 7 % (0-3) H Basophils (%) (Auto) 1 % (0-3) Neutrophils # (Auto) 4.4 x10^3uL (1.8-7.7) Lymphocytes # (Auto) 1.3 x10^3/uL (1.0-4.8) Monocytes # (Auto) 0.6 x10^3/uL (0.0-1.1) Eosinophils # (Auto) 0.5 x10^3/uL (0.0-0.7) Basophils # (Auto) 0.0 x10^3/uL (0.0-0.2) Sodium Level 141 mmol/L (136-145) Potassium Level 4.0 mmol/L (3.5-5.1) Chloride Level 106 mmol/L (98-107) Carbon Dioxide Level 27 mmol/L (21-32) Anion Gap 8 (6-14) Blood Urea Nitrogen 22 mg/dL (8-26) Creatinine 1.2 mg/dL (0.7-1.3) Estimated GFR (Cockcroft-Gault) 70.1 BUN/Creatinine Ratio 18 (6-20) Glucose Level 136 mg/dL (70-99) H Calcium Level 9.0 mg/dL (8.5-10.1) Magnesium Level 2.2 mg/dL (1.8-2.4) Total Bilirubin 0.2 mg/dL (0.2-1.0) Aspartate Amino Transferase (AST) 14 U/L (15-37) L Alanine Aminotransferase (ALT) 20 U/L (16-63) Alkaline Phosphatase 125 U/L (46-116) H Troponin I Quantitative < 0.017 ng/mL (0.000-0.055) [id number]-Type Natriuretic Peptide 64 pg/mL (0-449) Total Protein 7.5 g/dL (6.4-8.2) Albumin 3.1 g/dL (3.4-5.0) L Albumin/Globulin Ratio 0.7 (1.0-1.7) L Lipase 132 U/L (73-393) Laboratory Tests 10/15/18 02:21 Laboratory Tests 10/15/18 02:21 EKG EKG [] Interpretation Time: EKG demonstrates sinus rhythm with rate of 79. There is prolonged MT interval and left bundle-branch block is present. Radiology/Procedures Radiology/Procedures [] Impressions: PROCEDURE: CT ABD PELV W/ IV CONTRST ONLY CT abdomen and pelvis with contrast PQRS statement: CT scans at this facility use dose reduction including either automated exposure control, iterative reconstructions, and /or weight based radiation dosing via mA and kV modification when appropriate to reduce radiation dose to as low as reasonably achievable. HISTORY: Abdominal pain. TECHNIQUE: Helical CT imaging abdomen and pelvis 75 mL Omnipaque 300 intravenous contrast. Abdomen findings: Cystic change lung bases. 1.5 cm hypodensity left hepatic lobe measuring 25 units this is indeterminate. Gallbladder, adrenals, pancreas, spleen unremarkable. Indeterminate subcentimeter right renal upper pole hypodensity too small to characterize due to volume averaging. Appendix is negative. No obstruction or inflammation GI tract. Aortoiliac artery calcified plaque. No abdominal fluid or adenopathy. Lumbar scoliosis and disc disease. Pelvis findings: The inferior rectum demonstrates circumferential wall thickening down to the anal canal. Bladder, prostate and bones are unremarkable. No fluid or adenopathy. IMPRESSION: 1. Circumferential wall thickening of the inferior rectum and at the anal canal. No surrounding edema is evident. While this could represent low-grade inflammation from distal colitis, rectal malignancy is also a consideration given the absence of inflammatory edema. 2. Appendix is negative. 3. Indeterminate 1.5 cm hypodense left hepatic lobe lesion. Electronically signed by: Yazan Gonzalez MD (10/15/2018 4:01 AM) Course & Med Decision Making Course & Med Decision Making Pertinent Labs and Imaging studies reviewed. (See chart for details) [] Dragon Disclaimer Dragon Disclaimer This electronic medical record was generated, in whole or in part, using a voice recognition dictation system. Departure Departure Impression: Primary Impression: Chest pain Disposition: ADMITTED INPATIENT Admitting Physician: Dat Live Condition: IMPROVED Referrals: NATACHA DAS MD (PCP) Problem Qualifiers Primary Impression: Chest pain Chest pain type: unspecified Qualified Codes: R07.9 - Chest pain, unspecified RC SOMERS Jr. DO Oct 15, 2018 02:19
[2018-10-15 02:44] LABS: BASO % 1 % (0-3); EOS # 0.5 x10^3/uL (0.0-0.7); EOS % 7 % (0-3); HEMATOCRIT 37.9 % (39.0-53.0); HEMOGLOBIN 12.3 g/dL (13.0-17.5); LYMPH # 1.3 x10^3/uL (1.0-4.8); LYMPH % 20 % (24-48); MEAN CORPUSCULAR HEMOGLOBIN 28 pg (25-35); MEAN CORPUSCULAR HGB CONC 33 g/dL (31-37); MEAN CORPUSCULAR VOLUME 87 fL (79-100); MONO # 0.6 x10^3/uL (0.0-1.1); MONO % 8 % (0-9); NEUT # 4.4 x10^3uL (1.8-7.7); NEUT % 65 % (31-73); PLATELET COUNT 217 x10^3/uL (140-400); RED BLOOD COUNT 4.38 x10^6/uL (4.30-5.70); WHITE BLOOD COUNT 6.8 x10^3/uL (4.0-11.0)
[2018-10-15] MEDS ORDERED: ONDANSETRON PF 4 MG/2 ML VIAL. IV ONE (03:00)
[2018-10-15 03:15] LABS: ALBUMIN 3.1 g/dL (3.4-5.0); ALBUMIN/GLOBULIN RATIO 0.7 (1.0-1.7); CREATININE 1.2 mg/dL (0.7-1.3); GFR 70.1; MAGNESIUM 2.2 mg/dL (1.8-2.4); TOTAL BILIRUBIN 0.2 mg/dL (0.2-1.0); TOTAL PROTEIN 7.5 g/dL (6.4-8.2)
[2018-10-15] MEDS ORDERED: CONTRAST GIVEN. MC PRN (03:45)
[2018-10-15] MEDS ORDERED: IOHEXOL 300 MG/ML 100ML VIAL. IV ONE (04:00)
--- NOTE | 2018-10-15 04:05 | RAD ---
CT abdomen and pelvis with contrast PQRS statement: CT scans at this facility use dose reduction including either automated exposure control, iterative reconstructions, and /or weight based radiation dosing via mA and kV modification when appropriate to reduce radiation dose to as low as reasonably achievable. HISTORY: Abdominal pain. TECHNIQUE: Helical CT imaging abdomen and pelvis 75 mL Omnipaque 300 intravenous contrast. Abdomen findings: Cystic change lung bases. 1.5 cm hypodensity left hepatic lobe measuring 25 units this is indeterminate. Gallbladder, adrenals, pancreas, spleen unremarkable. Indeterminate subcentimeter right renal upper pole hypodensity too small to characterize due to volume averaging. Appendix is negative. No obstruction or inflammation GI tract. Aortoiliac artery calcified plaque. No abdominal fluid or adenopathy. Lumbar scoliosis and disc disease. Pelvis findings: The inferior rectum demonstrates circumferential wall thickening down to the anal canal. Bladder, prostate and bones are unremarkable. No fluid or adenopathy. IMPRESSION: 1. Circumferential wall thickening of the inferior rectum and at the anal canal. No surrounding edema is evident. While this could represent low-grade inflammation from distal colitis, rectal malignancy is also a consideration given the absence of inflammatory edema. 2. Appendix is negative. 3. Indeterminate 1.5 cm hypodense left hepatic lobe lesion. Electronically signed by: Yazan Gonzalez MD (10/15/2018 4:01 AM) [id number]
[2018-10-15] MEDS ORDERED: diphenhydrAMINE 50 MG/ML VIAL IVP ONE ×2 (04:30→21:45)
[2018-10-15] MEDS ORDERED: ONDANSETRON PF 4 MG/2 ML VIAL. IV PRN (05:15)
--- NOTE | 2018-10-15 06:36 | EKG ---
[facility] [address] [place] [address] Test Date: 2018-10-15 Test Time: 02:15:03 Pat Name: ZAIN GILMORE Department: Room: Gender: M Computer Information Science Professor: : [id number] Requested By: RC SOMERS Order Number: [id number] Reading MD: Leonardo Sesay Measurements Intervals Pound Rate: 79 P: -90 OK: 280 QRS: -21 QRSD: 118 T: 133 QT: 404 QTc: 464 Interpretive Statements SINUS RHYTHM PROLONGED OK INTERVAL LEFTWARD AXIS LVH WITH REPOLARIZATION ABNORMALITY INTRAVENTRICULAR CONDUCTION DELAY ABNORMAL ECG Electronically Signed On 10-20-2018 13:12:11 CDT by Leonardo Sesay
[2018-10-15] MEDS ORDERED: TAMS0.4C97 PO (08:23)
[2018-10-15] MEDS ORDERED: SENN-82 PO (08:23)
[2018-10-15] MEDS ORDERED: RANI150T2 PO ×2 (08:23)
[2018-10-15] MEDS ORDERED: TRAZ-118 PO (08:23)
[2018-10-15] MEDS ORDERED: IPRA0.2S5 NEB (08:23)
--- NOTE | 2018-10-15 08:31 | RAD ---
Single view of the chest. 10/15/2018 2:35 AM Indication: CHEST PAIN, SHORT OF AIR Comparison: Chest radiograph January 08, 2017 Findings: Low lung volumes and lordotic projection noted. No pneumothorax or definitive effusion is seen. Mild central vascular congestion and diffuse interstitial thickening is noted. Heart size appears to be top normal. No acute bony changes are identified in the interim. IMPRESSION: Mild central vascular congestion and interstitial thickening, likely mild edema. Electronically signed by: Dae Mello MD (10/15/2018 8:27 AM) [id number]
[2018-10-15] MEDS ORDERED: LABETALOL 20 MG/4 ML DISP.SYRIN. IVP PRN (09:30)
--- NOTE | 2018-10-15 09:31 | PDOC2 ---
CARDIAC CONSULT DATE OF CONSULT Date of Consult DATE: 10/15/18 TIME: 09:18 REASON FOR CONSULT Reason for Consult: Chest pain REFERRING PHYSICIAN Referring Physician: Lor SOURCE Source: Chart review, Patient HISTORY OF PRESENT ILLNESS HISTORY OF PRESENT ILLNESS This is an 83 yo male admitted for complains of chest pain. According to chart review he was complaining of chest pain at 1AM with some SOA. Currently he is comffortable and in no discomfort laying flat. It tried to wake him up, he does respond opens his eyes and looks at me but not willing to talk. He is no distress and apparently he is a poor historian with underlying hx of dementia and came from [facility]. PAST MEDICAL HISTORY Cardiovascular: AFIB, CHF, HTN, Hyperlipidemia Pulmonary: COPD GI: Other (dysphagia) Heme/Onc: Anemia NOS Psych: Anxiety Musculoskeletal: Osteoarthritis Renal/: Chronic renal insuff, Benign prostatic enlarg. PAST SURGICAL HISTORY Past Surgical History: Other (unknown) FAMILY HISTORY Family History: Family History Unknown SOCIAL HISTORY Smoke: No ALCOHOL: none Lives: Retirement CURRENT MEDICATIONS CURRENT MEDICATIONS Current Medications Medications (Trade) Dose Ordered Sig/Maxx Route PRN Reason Start Time Stop Time Status Last Admin Dose Admin Morphine Sulfate (Morphine Sulfate) 2 mg PRN Q15MIN PRN IV/SQ PAIN GREATER THAN 3/10 10/15/18 02:15 10/16/18 02:14 10/15/18 04:09 Iohexol (Omnipaque 300 Mg/ml) 75 ml 1X ONCE IV 10/15/18 04:00 10/15/18 04:01 DC 10/15/18 03:46 Diphenhydramine HCl (Benadryl) 25 mg 1X ONCE IVP 10/15/18 04:30 10/15/18 04:31 DC 10/15/18 04:07 ALLERGIES ALLERGIES: Coded Allergies: I S O L A T I O N *CONTACT* (Verified Allergy, Unknown, 01/10/17) mrsa No Known Medication Allergies (Verified Allergy, Unknown, 01/10/17) ROS Review of System unreliable, poor historian, dementia PHYSICAL EXAM General: Alert, No acute distress, Other (uncooperative) HEENT: Atraumatic, Mucous membr. moist/pink Lungs: Other (diminished bases) Heart: Regular rate (SR), Normal S1, Normal S2, Other (2/6 systolic murmur to LLS border) Abdomen: Soft, No tenderness Extremities: No cyanosis, Other (trace to 1+ bilaterl LE edema) Skin: No significant lesion Neuro: Normal speech, Sensation intact Psych/Mental Status: Other (confused, uncooperative) MUSCULOSKELETAL: Osteoarthritic changes both hands VITALS VITALS Vital Signs Date Time Temp Pulse Resp B/P (MAP) Pulse Ox O2 Delivery O2 Flow Rate FiO2 10/15/18 07:59 97.8 65 11 164/72 (102) 96 Room Air 97.8 LABS Lab: Laboratory Tests Test 10/15/18 02:21 White Blood Count 6.8 x10^3/uL (4.0-11.0) Red Blood Count 4.38 x10^6/uL (4.30-5.70) Hemoglobin 12.3 g/dL (13.0-17.5) Hematocrit 37.9 % (39.0-53.0) Mean Corpuscular Volume 87 fL (79-100) Mean Corpuscular Hemoglobin 28 pg (25-35) Mean Corpuscular Hemoglobin Concent 33 g/dL (31-37) Red Cell Distribution Width 15.0 % (11.5-14.5) Platelet Count 217 x10^3/uL (140-400) Neutrophils (%) (Auto) 65 % (31-73) Lymphocytes (%) (Auto) 20 % (24-48) Monocytes (%) (Auto) 8 % (0-9) Eosinophils (%) (Auto) 7 % (0-3) Basophils (%) (Auto) 1 % (0-3) Neutrophils # (Auto) 4.4 x10^3uL (1.8-7.7) Lymphocytes # (Auto) 1.3 x10^3/uL (1.0-4.8) Monocytes # (Auto) 0.6 x10^3/uL (0.0-1.1) Eosinophils # (Auto) 0.5 x10^3/uL (0.0-0.7) Basophils # (Auto) 0.0 x10^3/uL (0.0-0.2) Sodium Level 141 mmol/L (136-145) Potassium Level 4.0 mmol/L (3.5-5.1) Chloride Level 106 mmol/L (98-107) Carbon Dioxide Level 27 mmol/L (21-32) Anion Gap 8 (6-14) Blood Urea Nitrogen 22 mg/dL (8-26) Creatinine 1.2 mg/dL (0.7-1.3) Estimated GFR (Cockcroft-Gault) 70.1 BUN/Creatinine Ratio 18 (6-20) Glucose Level 136 mg/dL (70-99) Calcium Level 9.0 mg/dL (8.5-10.1) Magnesium Level 2.2 mg/dL (1.8-2.4) Total Bilirubin 0.2 mg/dL (0.2-1.0) Aspartate Amino Transf (AST/SGOT) 14 U/L (15-37) Alanine Aminotransferase (ALT/SGPT) 20 U/L (16-63) Alkaline Phosphatase 125 U/L (46-116) Troponin I Quantitative < 0.017 ng/mL (0.000-0.055) OX-Phh-Y-Type Natriuretic Peptide 64 pg/mL (0-449) Total Protein 7.5 g/dL (6.4-8.2) Albumin 3.1 g/dL (3.4-5.0) Albumin/Globulin Ratio 0.7 (1.0-1.7) Lipase 132 U/L (73-393) ECHOCARDIOGRAM ECHOCARDIOGRAM <Conclusion> The left ventricle is normal size. Left ventricle systolic function is normal. The Ejection Fraction is 55-60%. There is mild concentric left ventricular hypertrophy. There is no significant aortic valvular stenosis. Doppler and Color Flow revealed trace aortic regurgitation. Doppler and Color Flow revealed trace mitral valve regurgitation. Doppler and Color Flow revealed trace to mild tricuspid valve regurgitation. DATE: 08/23/17 1614 ASSESSMENT/PLAN ASSESSMENT/PLAN 1. Atypical Chest pain; trop nml so far, doubt ACS. Likely GI. 2. Diastolic CHF; compensated Pro NT BNP 64 3. HTN: labile 4. HLP 5. Colitis with hepatic lesion: malignancy? GI consult pending 6. CKD possibly stage 3 7. COPD 8. PAFIB: not on OAC. Noted with home BB. Currently SR but with long first degree AV block with chronic LBBB 9. Dementia/debility Recommendations 1. TTE, TSH, lipids, trop 2. ASA. restart home losartan and norvasc. Consider NTG paste. May start home BB at low dose. Hydralazine IV PRN 3. Will need [facility]OT to note any tachy bhavin issue and AFIB burden but likely not possible if in facility. ELOY ALEJANDRO APPLIANCE REPAIR TECHNICIAN Oct 15, 2018 09:31
--- NOTE | 2018-10-15 10:05 | PDOC1 ---
History and Physical Date of Admission Date of Admission DATE: 10/15/18 TIME: 10:05 Identification/Chief Complaint Chief Complaint 83-year-old male who presents with complaint of chest pain shortness of breath started this morning at about 1:00. Patient rates pain as being moderate. Patient was given 4 baby aspirin and nitroglycerin prior to arrival but states that pain is no better after nitroglycerin. He states that symptom onset was at rest. He denies any nausea, vomiting or diaphoresis. Patient states that nothing improves his symptoms. he has a cough and allergy symptoms as well and is given claritin and mucinex dm in er. Past Medical History Past Medical History Past Medical History Past Medical History Past Medical History: Arthritis, Arrhythmia, COPD, Hypertension, Renal Disease , Renal Failure, UTI, Other Additional Past Medical Histor: DJD, COLON POLYPS, HEMORRHOIDS, BPH, AFLUTTER Past Surgical History: No Surgical History Alcohol Use: Occasionally Drug Use: None family hx copd Cardiovascular: AFIB, CHF, HTN, Hyperlipidemia Pulmonary: COPD CENTRAL NERVOUS SYSTEM: Other GI: Other (dysphagia) Heme/Onc: Anemia NOS Psych: Anxiety Musculoskeletal: Osteoarthritis Renal/: Chronic renal insuff, Benign prostatic enlarg. Endocrine: No pertinent hx Past Surgical History Past Surgical History: No pertinent history Family History Family History: Family History Unknown Social History Smoke: No ALCOHOL: none Drugs: None Current Problem List Problem List Problems Medical Problems: (1) Chest pain Status: Acute Current Medications Current Medications Current Medications Morphine Sulfate (Morphine Sulfate) 2 mg PRN Q15MIN PRN IV/SQ PAIN GREATER THAN 3/10 Last administered on 10/15/18at 04:09; Start 10/15/18 at 02:15; Stop at 02:14 Ondansetron HCl (Zofran) 4 mg 1X ONCE IV ; Start 10/15/18 at 03:00; Stop at 03:01; Status DC Iohexol (Omnipaque 300 Mg/ml) 75 ml 1X ONCE IV Last administered on 10/15/18at 03:46; Start 10/15/18 at 04:00; Stop 10/15/18 at 04:01; Status DC Info (CONTRAST GIVEN -- Rx MONITORING) 1 each PRN DAILY PRN MC SEE COMMENTS; Start 10/15/18 at 03:45; Stop 10/17/18 at 03:44 Diphenhydramine HCl (Benadryl) 25 mg 1X ONCE IVP Last administered on at 04:07; Start 10/15/18 at 04:30; Stop 10/15/18 at 04:31; Status DC Ondansetron HCl (Zofran) 4 mg PRN Q8HRS PRN IV NAUSEA/VOMITING 1ST CHOICE; Start 10/15/18 at 05:15; Stop 10/16/18 at 05:14 Morphine Sulfate (Morphine Sulfate) 2 mg PRN Q2HR PRN IV SEVERE PAIN; Start at 05:15; Stop 10/16/18 at 05:14 Aspirin (Ecotrin) 81 mg DAILYWBKFT PO ; Start 10/16/18 at 08:00; Status UNV Labetalol HCl (Normodyne Iv Push) 20 mg PRN Q2HR PRN IVP HYPERTENSION, SEE COMMENTS; Start 10/15/18 at 09:30 Amlodipine Besylate (Norvasc) 10 mg DAILY PO ; Start 10/16/18 at 09:00; Status UNV Non-Formulary Medication (Losartan Potassium ) 100 mg DAILY PO ; Start 10/16/18 at 09:00; Status UNV Active Scripts Active [Metoprolol Tartrate] 25 MG Tablet 12.5 Mg PO BID [Aspirin] 81 MG Tablet.dr 81 Mg PO DAILYWBKFT Tylenol (Acetaminophen) 325 Mg Tablet 650 Mg PO PRN Q6HRS PRN Reported Trazodone Hcl 50 Mg Tablet 50 Mg PO HS Senna S Tablet (Sennosides/Docusate Sodium) 1 Each Tablet 2 Each PO BID Ranitidine Hcl 150 Mg Tablet 1 Tab PO PRN Q12HR PRN Ranitidine Hcl 150 Mg Tablet 1 Tab PO HS Ipratropium [place] 0.2 Mg/1 Ml Solution 1 Vial NEB QID Flomax (Tamsulosin Hcl) 0.4 Mg Cap.er.24h 0.4 Mg PO HS Amlodipine Besylate 10 Mg Tablet 10 Mg PO DAILY Losartan Potassium 100 Mg Tablet 100 Mg PO DAILY Finasteride 5 Mg Tablet 1 Tab PO DAILY [place] 5-325 Tablet (Acetaminophen/Hydrocodone Bitart) 1 Each Tablet 1 Tab PO PRN Q6HRS PRN Artificial Tears Eye Drops (Dextran 70/Hypromellose) 15 Ml Drops 1 Drop EACHEYE PRN DAILY PRN Clonazepam 0.5 Mg Tablet 1 Tab PO HS Allergies Allergies: Coded Allergies: I S O L A T I O N *CONTACT* (Verified Allergy, Unknown, 01/10/17) mrsa No Known Medication Allergies (Verified Allergy, Unknown, 01/10/17) ROS Review of System Review of Systems Review of Systems Constitutional: Denies fever or chills [] Respiratory: Complains of shortness of breath [] Cardiovascular: No additional information not addressed in HPI [] GI: Denies abdominal pain, nausea, vomiting or diarrhea [] Neurologic: Denies headache, focal weakness or sensory changes [] 14 pt systems were reviewed and found to be within normal limits, except as documented General: YES: Fatigue PSYCHOLOGICAL ROS: No: Anxiety, Behavioral Disorder, Concentration difficultie , Decreased libido, Depression, Disorientation, Hallucinations, Hostility, Irritablity, Memory difficulties, Mood Swings, Obsessive thoughts, Physical abuse, Sexual abuse, Sleep disturbances, Suicidal ideation, Other Eyes: No Blurry vision, No Decreased vision, No Double vision, No Dry eyes, No Excessive tearing, No Eye Pain, No Itchy Eyes, No Loss of vision, No Photophobia , No Scotomata, No Uses contacts, No Uses glasses, No Other HEENT: YES: Nasal congestion, Nasal discharge; No: Heacaches, Visual Changes, Hearing change, Oral lesions, Sinus pain, Sore Throat, Epistaxis, Sneezing, Snoring, Tinnitus, Vertigo, Vocal changes, Other ALLERGY AND IMMUNOLOGY: No: Hives, Insect Bite Sensitivity, Itchy/Watery Eyes, Nasal Congestion, Post Nasal Drip, Seasonal Allergies, Other Hematological and Lymphatic: No: Bleeding Problems, Blood Clots, Blood Transfusions, Brusing, Night Sweats, Pallor, Swollen Lymph Nodes, Other Breast: No New/Changing Breast Lumps, No Nipple changes, No Nipple discharge, No Other Respiratory: YES: Cough, Shortness of breath, Sputum Changes; No: Hemoptysis, Orthopnea, Pleuritic Pain, SOB with excertion, Stridor, Tachypnea, Wheezing, Other Cardiovascular: yes Chest Pain; No Palpitations, No Orthopnea, No Paroxysmal Noc. Dyspnea, No Edema, No Lt Headedness, No Other Gastrointestinal: No Nausea, No Vomiting, No Abdominal Pain, No Diarrhea, No Constipation, No Melena, No Hematochezia, No Other Musculoskeletal: Yes Joint Stiffness Neurological: No Behavorial Changes, No Bowel/Bladder ControlChng, No Confusion , No Dizziness, No Gait Disturbance, No Headaches, No Impaired Coord/balance, No Memory Loss, No Numbness/Tingling, No Seizures, No Speech Problems, No Tremors, No Visual Changes, No Weakness, No Other Skin: No Dry Skin, No Eczema, No Hair Changes, No Lumps, No Mole Changes, No Mottling, No Nail Changes, No Pruritus, No Rash, No Skin Lesion Changes, No Other, No Acne Physical Exam Physical Exam Physical Exam Physical Exam Constitutional: Well developed, well nourished, no acute distress, non-toxic appearance. [] HENT: Normocephalic, atraumatic, bilateral external ears normal, oropharynx moist, no oral exudates, nose normal. [] Eyes: PERRLA, EOMI, conjunctiva normal, no discharge. [] Neck: Normal range of motion, no tenderness, supple, no stridor. [] Cardiovascular: Regular rate and rhythm[] Lungs & Thorax: Breathing is labored. Fine rales are noted in the lung bases to auscultation [] Abdomen: Bowel sounds normal, soft, with mid to lower abdominal tenderness. [] Skin: Warm, dry, no erythema, no rash. [] Extremities: No tenderness, no cyanosis, no clubbing, ROM intact. There is mild pitting edema. [] Neurologic: Awake and alert, no focal deficits noted. [] General: Alert, Oriented X3, Cooperative, mild distress HEENT: PERRLA, EOMI, Mucous membr. moist/pink Lungs: Clear to auscultation Heart: S1S2, RRR Abdomen: Normal bowel sounds, Soft Extremities: No clubbing, No cyanosis Skin: No breakdown Neuro: Normal speech, Cranial nerves 3-12 NL Psych/Mental Status: Mental status NL, Mood NL Vitals Vitals Vital Signs Date Time Temp Pulse Resp B/P (MAP) Pulse Ox O2 Delivery O2 Flow Rate FiO2 10/15/18 07:59 97.8 65 11 164/72 (102) 96 Room Air 97.8 Labs Labs Laboratory Tests Test 10/15/18 02:21 White Blood Count 6.8 x10^3/uL (4.0-11.0) Red Blood Count 4.38 x10^6/uL (4.30-5.70) Hemoglobin 12.3 g/dL (13.0-17.5) Hematocrit 37.9 % (39.0-53.0) Mean Corpuscular Volume 87 fL (79-100) Mean Corpuscular Hemoglobin 28 pg (25-35) Mean Corpuscular Hemoglobin Concent 33 g/dL (31-37) Red Cell Distribution Width 15.0 % (11.5-14.5) Platelet Count 217 x10^3/uL (140-400) Neutrophils (%) (Auto) 65 % (31-73) Lymphocytes (%) (Auto) 20 % (24-48) Monocytes (%) (Auto) 8 % (0-9) Eosinophils (%) (Auto) 7 % (0-3) Basophils (%) (Auto) 1 % (0-3) Neutrophils # (Auto) 4.4 x10^3uL (1.8-7.7) Lymphocytes # (Auto) 1.3 x10^3/uL (1.0-4.8) Monocytes # (Auto) 0.6 x10^3/uL (0.0-1.1) Eosinophils # (Auto) 0.5 x10^3/uL (0.0-0.7) Basophils # (Auto) 0.0 x10^3/uL (0.0-0.2) Sodium Level 141 mmol/L (136-145) Potassium Level 4.0 mmol/L (3.5-5.1) Chloride Level 106 mmol/L (98-107) Carbon Dioxide Level 27 mmol/L (21-32) Anion Gap 8 (6-14) Blood Urea Nitrogen 22 mg/dL (8-26) Creatinine 1.2 mg/dL (0.7-1.3) Estimated GFR (Cockcroft-Gault) 70.1 BUN/Creatinine Ratio 18 (6-20) Glucose Level 136 mg/dL (70-99) Calcium Level 9.0 mg/dL (8.5-10.1) Magnesium Level 2.2 mg/dL (1.8-2.4) Total Bilirubin 0.2 mg/dL (0.2-1.0) Aspartate Amino Transf (AST/SGOT) 14 U/L (15-37) Alanine Aminotransferase (ALT/SGPT) 20 U/L (16-63) Alkaline Phosphatase 125 U/L (46-116) Troponin I Quantitative < 0.017 ng/mL (0.000-0.055) LN-Uhy-K-Type Natriuretic Peptide 64 pg/mL (0-449) Total Protein 7.5 g/dL (6.4-8.2) Albumin 3.1 g/dL (3.4-5.0) Albumin/Globulin Ratio 0.7 (1.0-1.7) Lipase 132 U/L (73-393) Laboratory Tests Test 10/15/18 02:21 White Blood Count 6.8 x10^3/uL (4.0-11.0) Red Blood Count 4.38 x10^6/uL (4.30-5.70) Hemoglobin 12.3 g/dL (13.0-17.5) Hematocrit 37.9 % (39.0-53.0) Mean Corpuscular Volume 87 fL (79-100) Mean Corpuscular Hemoglobin 28 pg (25-35) Mean Corpuscular Hemoglobin Concent 33 g/dL (31-37) Red Cell Distribution Width 15.0 % (11.5-14.5) Platelet Count 217 x10^3/uL (140-400) Neutrophils (%) (Auto) 65 % (31-73) Lymphocytes (%) (Auto) 20 % (24-48) Monocytes (%) (Auto) 8 % (0-9) Eosinophils (%) (Auto) 7 % (0-3) Basophils (%) (Auto) 1 % (0-3) Neutrophils # (Auto) 4.4 x10^3uL (1.8-7.7) Lymphocytes # (Auto) 1.3 x10^3/uL (1.0-4.8) Monocytes # (Auto) 0.6 x10^3/uL (0.0-1.1) Eosinophils # (Auto) 0.5 x10^3/uL (0.0-0.7) Basophils # (Auto) 0.0 x10^3/uL (0.0-0.2) Sodium Level 141 mmol/L (136-145) Potassium Level 4.0 mmol/L (3.5-5.1) Chloride Level 106 mmol/L (98-107) Carbon Dioxide Level 27 mmol/L (21-32) Anion Gap 8 (6-14) Blood Urea Nitrogen 22 mg/dL (8-26) Creatinine 1.2 mg/dL (0.7-1.3) Estimated GFR (Cockcroft-Gault) 70.1 BUN/Creatinine Ratio 18 (6-20) Glucose Level 136 mg/dL (70-99) Calcium Level 9.0 mg/dL (8.5-10.1) Magnesium Level 2.2 mg/dL (1.8-2.4) Total Bilirubin 0.2 mg/dL (0.2-1.0) Aspartate Amino Transf (AST/SGOT) 14 U/L (15-37) Alanine Aminotransferase (ALT/SGPT) 20 U/L (16-63) Alkaline Phosphatase 125 U/L (46-116) Troponin I Quantitative < 0.017 ng/mL (0.000-0.055) UG-Wiw-M-Type Natriuretic Peptide 64 pg/mL (0-449) Total Protein 7.5 g/dL (6.4-8.2) Albumin 3.1 g/dL (3.4-5.0) Albumin/Globulin Ratio 0.7 (1.0-1.7) Lipase 132 U/L (73-393) Images Images HISTORY: Abdominal pain. TECHNIQUE: Helical CT imaging abdomen and pelvis 75 mL Omnipaque 300 intravenous contrast. Abdomen findings: Cystic change lung bases. 1.5 cm hypodensity left hepatic lobe measuring 25 units this is indeterminate. Gallbladder, adrenals, pancreas, spleen unremarkable. Indeterminate subcentimeter right renal upper pole hypodensity too small to characterize due to volume averaging. Appendix is negative. No obstruction or inflammation GI tract. Aortoiliac artery calcified plaque. No abdominal fluid or adenopathy. Lumbar scoliosis and disc disease. Pelvis findings: The inferior rectum demonstrates circumferential wall thickening down to the anal canal. Bladder, prostate and bones are unremarkable. No fluid or adenopathy. IMPRESSION: 1. Circumferential wall thickening of the inferior rectum and at the anal canal. No surrounding edema is evident. While this could represent low-grade inflammation from distal colitis, rectal malignancy is also a consideration given the absence of inflammatory edema. 2. Appendix is negative. 3. Indeterminate 1.5 cm hypodense left hepatic lobe lesion. Electronically signed by: Yazan Gonzalez MD (10/15/2018 4:01 AM) [facility] VTE Prophylaxis Ordered VTE Prophylaxis Devices: Yes VTE Pharmacological Prophylaxi: Yes Assessment/Plan Assessment/Plan ASSESSMENT/PLAN ASSESSMENT/PLAN Atypical Chest pain Diastolic CHF; HTN HYPERLIPIDEMIA Colitis with hepatic lesion: malignancy Circumferential wall thickening of the inferior rectum and at the anal canal. No surrounding edema is evident. this could represent low-grade inflammation from distal colitis, rectal malignancy CKD stage 3 COPD PAFIB: Dementia/debility PLAN 1. ECHO , TSH, lipids, trop SERIES 2. ASA. restart home MEDS 3. TELE 4. CARDIOLOGY CONSULT 5. GI CONSULT 6. dvt prophylaxis 57 MIN PT EXAM, CHART REVIEW, > 50% OF TIME SPENT WITH EXAM, CHART REVIEW, pt care coordination RIGOBERTO SINGH MD Oct 15, 2018 10:05
[2018-10-15 10:17] LABS: CHOLESTEROL/HDL RATIO 4.3
[2018-10-15] MEDS: amLODIPine BESYLATE 10 MG TABLET PO SCH (10:49)
[2018-10-15] MEDS: LOSARTAN POTASSIUM 50 MG TABLET. PO SCH (10:49)
[2018-10-15] MEDS: ASPIRIN ENTERIC COATED 81 MG TABLET.DR. PO SCH (10:49)
--- NOTE | 2018-10-15 12:42 | PDOC2 ---
GI CONSULT Reason For Consult: Possible rectal mass HPI: HPI: 83 y/o male seen in the ER. Came from living facility w/ ?chest/abd pain and SOA. GI asked to see re: CT findings - circumferential wall thickening in inferior rectum down to anal canal and 1.5cm left hepatic lesion. He does not provide much history. He tells me "I wasn't breathing good" but denies pain in his chest or abdomen. Says "huh-uh" when I ask about reflux/ heartburn, diarrhea, constipation, and previous 'scopes. Does say "I don't swallow too good." WEALTH MANAGEMENT ADVISOR tells me med list includes ASA, ranitidine, and Senna. PMH includes colon polyps and dysphagia on regular diet. PMH: PMH: per chart - A Fib, CHF, HTN, HLD, COPD, dysphagia, anemia, anxiety, OA, CKD, BPH , colon polyps Social History: Smoke: No ALCOHOL: none Drugs: None ROS: Difficult to obtain. Vitals: Vitals: Vital Signs Date Time Temp Pulse Resp B/P (MAP) Pulse Ox O2 Delivery O2 Flow Rate FiO2 10/15/18 11:07 69 199/85 10/15/18 10:30 97.8 14 95 Room Air 97.8 Labs: Labs: Laboratory Tests Test 10/15/18 02:21 10/15/18 09:15 10/15/18 11:20 White Blood Count 6.8 x10^3/uL (4.0-11.0) Red Blood Count 4.38 x10^6/uL (4.30-5.70) Hemoglobin 12.3 g/dL (13.0-17.5) Hematocrit 37.9 % (39.0-53.0) Mean Corpuscular Volume 87 fL (79-100) Mean Corpuscular Hemoglobin 28 pg (25-35) Mean Corpuscular Hemoglobin Concent 33 g/dL (31-37) Red Cell Distribution Width 15.0 % (11.5-14.5) Platelet Count 217 x10^3/uL (140-400) Neutrophils (%) (Auto) 65 % (31-73) Lymphocytes (%) (Auto) 20 % (24-48) Monocytes (%) (Auto) 8 % (0-9) Eosinophils (%) (Auto) 7 % (0-3) Basophils (%) (Auto) 1 % (0-3) Neutrophils # (Auto) 4.4 x10^3uL (1.8-7.7) Lymphocytes # (Auto) 1.3 x10^3/uL (1.0-4.8) Monocytes # (Auto) 0.6 x10^3/uL (0.0-1.1) Eosinophils # (Auto) 0.5 x10^3/uL (0.0-0.7) Basophils # (Auto) 0.0 x10^3/uL (0.0-0.2) Sodium Level 141 mmol/L (136-145) Potassium Level 4.0 mmol/L (3.5-5.1) Chloride Level 106 mmol/L (98-107) Carbon Dioxide Level 27 mmol/L (21-32) Anion Gap 8 (6-14) Blood Urea Nitrogen 22 mg/dL (8-26) Creatinine 1.2 mg/dL (0.7-1.3) Estimated GFR (Cockcroft-Gault) 70.1 BUN/Creatinine Ratio 18 (6-20) Glucose Level 136 mg/dL (70-99) Calcium Level 9.0 mg/dL (8.5-10.1) Magnesium Level 2.2 mg/dL (1.8-2.4) Total Bilirubin 0.2 mg/dL (0.2-1.0) Aspartate Amino Transf (AST/SGOT) 14 U/L (15-37) Alanine Aminotransferase (ALT/SGPT) 20 U/L (16-63) Alkaline Phosphatase 125 U/L (46-116) Troponin I Quantitative < 0.017 ng/mL (0.000-0.055) < 0.017 ng/mL (0.000-0.055) < 0.017 ng/mL (0.000-0.055) VP-Xpt-N-Type Natriuretic Peptide 64 pg/mL (0-449) Total Protein 7.5 g/dL (6.4-8.2) Albumin 3.1 g/dL (3.4-5.0) Albumin/Globulin Ratio 0.7 (1.0-1.7) Lipase 132 U/L (73-393) Triglycerides Level 78 mg/dL (0-150) Cholesterol Level 187 mg/dL (0-200) LDL Cholesterol, Calculated 128 mg/dL (0-100) VLDL Cholesterol, Calculated 16 mg/dL (0-40) Non-HDL Cholesterol Calculated 144 mg/dL (0-129) HDL Cholesterol 43 mg/dL (40-60) Cholesterol/HDL Ratio 4.3 Thyroid Stimulating Hormone (TSH) 1.785 uIU/mL (0.358-3.74) Allergies: Coded Allergies: I S O L A T I O N *CONTACT* (Verified Allergy, Unknown, 01/10/17) mrsa No Known Medication Allergies (Verified Allergy, Unknown, 01/10/17) Medications: Current Medications Medications (Trade) Dose Ordered Sig/Maxx Route PRN Reason Start Time Stop Time Status Last Admin Dose Admin Morphine Sulfate (Morphine Sulfate) 2 mg PRN Q15MIN PRN IV/SQ PAIN GREATER THAN 3/10 10/15/18 02:15 10/16/18 02:14 10/15/18 04:09 Iohexol (Omnipaque 300 Mg/ml) 75 ml 1X ONCE IV 10/15/18 04:00 10/15/18 04:01 DC 10/15/18 03:46 Diphenhydramine HCl (Benadryl) 25 mg 1X ONCE IVP 10/15/18 04:30 10/15/18 04:31 DC 10/15/18 04:07 Aspirin (Ecotrin) 81 mg DAILYWBKFT PO 10/15/18 11:00 10/15/18 10:49 Labetalol HCl (Normodyne Iv Push) 20 mg PRN Q2HR PRN IVP HYPERTENSION, SEE COMMENTS 10/15/18 09:30 10/15/18 11:07 Amlodipine Besylate (Norvasc) 10 mg DAILY PO 10/15/18 11:00 10/15/18 10:49 Losartan Potassium (Cozaar) 100 mg DAILY PO 10/15/18 11:00 10/15/18 10:49 Imaging: Imaging: CXR 10/15 IMPRESSION: Mild central vascular congestion and interstitial thickening, likely mild edema. CT A/P w/ IV contrast Abdomen findings: Cystic change lung bases. 1.5 cm hypodensity left hepatic lobe measuring 25 units this is indeterminate. Gallbladder, adrenals, pancreas, spleen unremarkable. Indeterminate subcentimeter right renal upper pole hypodensity too small to characterize due to volume averaging. Appendix is negative. No obstruction or inflammation GI tract. Aortoiliac artery calcified plaque. No abdominal fluid or adenopathy. Lumbar scoliosis and disc disease. Pelvis findings: The inferior rectum demonstrates circumferential wall thickening down to the anal canal. Bladder, prostate and bones are unremarkable. No fluid or adenopathy. IMPRESSION: 1. Circumferential wall thickening of the inferior rectum and at the anal canal. No surrounding edema is evident. While this could represent low-grade inflammation from distal colitis, rectal malignancy is also a consideration given the absence of inflammatory edema. 2. Appendix is negative. 3. Indeterminate 1.5 cm hypodense left hepatic lobe lesion. PE: GEN: NAD HEENT: Atraumatic, keeps eyes closed LUNGS: CTAB HEART: RRR ABD: quiet, round, apparently non-tender EXTREMITY: No edema SKIN: No rashes, no jaundice NEURO/PSYCH: alert to self A/P: A/P: SOA, ?chest/abd pain, HTN Chronic anemia - back to [address] [place] [address] - circumferential wall thickening in inferior rectum down to anal canal, left hepatic lesion H/o colon polyps, ?GERD -- History challenging. Continue per cardiology re: ?chest pain and SOA. Empiric PPI. Other per Dr. Layton re: CT findings. SHAZIA MCNALLY Oct 15, 2018 12:42
[2018-10-15] MEDS: MORPHINE SULFATE 2 MG/ML VIAL. IV PRN ×2 (13:00→21:16)
[2018-10-15 13:12] LABS: BILIRUBIN,URINE NEGATIVE (NEG); CLARITY,URINE CLEAR; COLOR,URINE YELLOW; NITRITE,URINE NEGATIVE (NEG); PROTEIN,URINE NEGATIVE (NEG-TRACE); UROBILINOGEN,URINE 0.2 mg/dL (0.2 mg/dL)
[2018-10-15 13:28] LABS: BACTERIA,URINE 0 /HPF (0-FEW); RBC,URINE 0 /HPF (0-2); SQUAMOUS EPITHELIAL CELL,UR FEW /LPF; WBC,URINE 0 /HPF (0-4)
--- NOTE | 2018-10-15 13:35 | CARD ---
MR#: [id number] Date of Study: 10/15/2018 Ordering Physician: ELOY ALEJANDRO, Referring Physician: RIGOBERTO SINGH, Tech: Cornelia Marie APPROVED REPORT EXAM: Two-dimensional and M-mode echocardiogram with Doppler and color Doppler. Other Information Quality : AverageHR: 64bpm INDICATION Chest Pain 2D DIMENSIONS Left Atrium(2D)3.5 (1.6-4.0cm)IVSd1.2 (0.7-1.1cm) Aortic Root(2D)3.2 (2.0-3.7cm)LVDd5.1 (3.9-5.9cm) LVOT Diameter2.0 (1.8-2.4cm)PWd1.3 (0.7-1.1cm) LVDs2.7 (2.5-4.0cm)FS (%) 46.1 % SV94.7 mlLVEF(%)77.2 (>50%) Aortic Valve AoV Peak Wil.179.9cm/sAoV VTI41.9cm AO Peak GR.12.9mmHgLVOT Peak Wil.88.1cm/s AO Mean GR.8mmHgAVA (VMAX)1.61cm2 Mitral Valve MV E Cxvkajmx76.3cm/sMV DECEL [id number] MV A Hcjnhdrb545.6cm/sE/A Ratio0.8 Pulmonary Valve PV Peak Xtvagnkk08.0cm/s Tricuspid Valve TR P. Kbwqosnv959og/sRAP [id number] TR Peak Gr.65vjAkMZZZ49xyWm Pulmonary Vein S1 Gtexcshb29.5cm/sD2 Mcwrhhpo00.3cm/s PVa [id number] LEFT VENTRICLE The left ventricle is normal size. There is mild to moderate concentric left ventricular hypertrophy. The left ventricular systolic function is normal. The Ejection Fraction is 60%. There is normal LV s egmental wall motion. Transmitral Doppler flow pattern is Grade I-abnormal relaxation pattern. RIGHT VENTRICLE The right ventricle is normal size. There is normal right ventricular wall thickness. The right ventr icular systolic function is normal. ATRIA The left atrium size is normal. The right atrium size is normal. The interatrial septum is intact wit h no evidence for an atrial septal defect or patent foramen ovale as noted on 2-D or Doppler imaging. AORTIC VALVE The aortic valve is thickened but opens well. Doppler and Color Flow revealed trace aortic regurgitat ion. There is no significant aortic valvular stenosis. MITRAL VALVE The mitral valve is normal in structure and function. There is no evidence of mitral valve prolapse. There is no mitral valve stenosis. Doppler and Color Flow revealed no mitral valve regurgitation note d. TRICUSPID VALVE The tricuspid valve is normal in structure and function. Doppler and Color Flow revealed trace tricus pid valve regurgitation. There is no tricuspid valve stenosis. PULMONIC VALVE The pulmonic valve is not well visualized. Doppler and Color Flow revealed trace pulmonic valvular re gurgitation. GREAT VESSELS The aortic root is normal in size. The IVC is normal in size and collapses >50% with inspiration. PERICARDIAL EFFUSION There is no evidence of significant pericardial effusion. Critical Notification Critical Value: No <Conclusion> The left ventricular systolic function is normal. The Ejection Fraction is 60%. There is normal LV segmental wall motion. Transmitral Doppler flow pattern is Grade I-abnormal relaxation pattern. Trace tricuspid valve regurgitation. There is no evidence of significant pericardial effusion. Signed by : Leonardo Sesay, Electronically Approved : 10/15/2018 13:35:08
--- NOTE | 2018-10-15 14:15 | NUR ---
Patient arrived to room 246 via bed from ED hold at 1415. Patient alert to self only. Patient drowsy. VS taken. Bed alarm placed on. Will continue to monitor.
[2018-10-15] MEDS: PANTOPRAZOLE 40 MG TABLET.DR. PO SCH (17:24)
[2018-10-15] MEDS: NITROGLYCERIN OINT 1 GM PACKET. TP SCH (17:34)
[2018-10-15] MEDS: METOPROLOL TART IMMED RELEASE 25 MG TABLET. PO SCH (21:16)
[2018-10-15] MEDS ORDERED: diphenhydrAMINE 50 MG/ML VIAL IM ONE (21:30)
[2018-10-16 03:10] VITALS: BP 157/71
[2018-10-16 03:53] LABS: BASO % 0 % (0-3); EOS # 0.5 x10^3/uL (0.0-0.7); EOS % 7 % (0-3); HEMATOCRIT 36.3 % (39.0-53.0); LYMPH # 1.2 x10^3/uL (1.0-4.8); LYMPH % 17 % (24-48); MEAN CORPUSCULAR HEMOGLOBIN 29 pg (25-35); MEAN CORPUSCULAR HGB CONC 33 g/dL (31-37); MEAN CORPUSCULAR VOLUME 86 fL (79-100); MONO # 0.5 x10^3/uL (0.0-1.1); MONO % 8 % (0-9); NEUT # 4.8 x10^3uL (1.8-7.7); NEUT % 68 % (31-73); PLATELET COUNT 201 x10^3/uL (140-400); RED BLOOD COUNT 4.21 x10^6/uL (4.30-5.70); RED CELL DISTRIBUTION WIDTH 15.7 % (11.5-14.5); WHITE BLOOD COUNT 7.1 x10^3/uL (4.0-11.0)
[2018-10-16 04:09] LABS: ALBUMIN 3.2 g/dL (3.4-5.0); ALBUMIN/GLOBULIN RATIO 0.8 (1.0-1.7); CALCIUM 8.7 mg/dL (8.5-10.1); CREATININE 1.3 mg/dL (0.7-1.3); GFR 63.9; TOTAL BILIRUBIN 0.3 mg/dL (0.2-1.0); TOTAL PROTEIN 7.1 g/dL (6.4-8.2)
[2018-10-16] MEDS: NITROGLYCERIN OINT 1 GM PACKET. TP SCH ×5 (06:14→22:58)
[2018-10-16 07:00] VITALS: BP 151/65
[2018-10-16] MEDS ORDERED: diphenhydrAMINE 50 MG/ML VIAL IVP ONE (07:45)
[2018-10-16] MEDS: METOPROLOL TART IMMED RELEASE 25 MG TABLET. PO SCH ×2 (08:27→22:22)
[2018-10-16] MEDS: LOSARTAN POTASSIUM 50 MG TABLET. PO SCH (08:27)
[2018-10-16] MEDS: ASPIRIN ENTERIC COATED 81 MG TABLET.DR. PO SCH (08:28)
[2018-10-16] MEDS: PANTOPRAZOLE 40 MG TABLET.DR. PO SCH (08:28)
[2018-10-16] MEDS: amLODIPine BESYLATE 10 MG TABLET PO SCH (08:28)
--- NOTE | 2018-10-16 09:25 | PDOC ---
Subjective: Subjective: "My head itches" Objective: Objective: Reviewed w/ RN - nephew is coming from out of town, tries to stool (bedpan) but no result. Vital Signs: Vital Signs Date Time Temp Pulse Resp B/P (MAP) Pulse Ox O2 Delivery O2 Flow Rate FiO2 10/16/18 08:28 87 151/65 10/16/18 08:00 Room Air 10/16/18 07:00 98.2 22 92 98.2 Labs: Laboratory Tests Test 10/15/18 11:20 10/15/18 12:50 10/16/18 02:55 Troponin I Quantitative < 0.017 ng/mL Urine Color Yellow Urine Clarity Clear Urine pH 5.0 Urine Specific [place] >=1.030 Urine Protein Negative mg/dL Urine Glucose (UA) Negative mg/dL Urine Ketones (Stick) Negative mg/dL Urine Blood Negative Urine Nitrite Negative Urine Bilirubin Negative Urine Urobilinogen Dipstick 0.2 mg/dL Urine Leukocyte Esterase Negative Urine RBC 0 /HPF Urine WBC 0 /HPF Urine Squamous Epithelial Cells Few /LPF Urine Bacteria 0 /HPF White Blood Count 7.1 x10^3/uL Red Blood Count 4.21 x10^6/uL Hemoglobin 12.0 g/dL Hematocrit 36.3 % Mean Corpuscular Volume 86 fL Mean Corpuscular Hemoglobin 29 pg Mean Corpuscular Hemoglobin Concent 33 g/dL Red Cell Distribution Width 15.7 % Platelet Count 201 x10^3/uL Neutrophils (%) (Auto) 68 % Lymphocytes (%) (Auto) 17 % Monocytes (%) (Auto) 8 % Eosinophils (%) (Auto) 7 % Basophils (%) (Auto) 0 % Neutrophils # (Auto) 4.8 x10^3uL Lymphocytes # (Auto) 1.2 x10^3/uL Monocytes # (Auto) 0.5 x10^3/uL Eosinophils # (Auto) 0.5 x10^3/uL Basophils # (Auto) 0.0 x10^3/uL Sodium Level 142 mmol/L Potassium Level 4.0 mmol/L Chloride Level 107 mmol/L Carbon Dioxide Level 27 mmol/L Anion Gap 8 Blood Urea Nitrogen 20 mg/dL Creatinine 1.3 mg/dL Estimated GFR (Cockcroft-Gault) 63.9 BUN/Creatinine Ratio 15 Glucose Level 106 mg/dL Calcium Level 8.7 mg/dL Total Bilirubin 0.3 mg/dL Aspartate Amino Transf (AST/SGOT) 21 U/L Alanine Aminotransferase (ALT/SGPT) 28 U/L Alkaline Phosphatase 129 U/L Total Protein 7.1 g/dL Albumin 3.2 g/dL Albumin/Globulin Ratio 0.8 Imaging: Echocardiogram 10/15 <Conclusion> The left ventricular systolic function is normal. The Ejection Fraction is 60%. There is normal LV segmental wall motion. Transmitral Doppler flow pattern is Grade I-abnormal relaxation pattern. Trace tricuspid valve regurgitation. There is no evidence of significant pericardial effusion. PE: GEN: vigorously rubbing back of head on pillow LUNGS: room air HEART: RRR ABD: quiet - exam difficult, round, apparently non-tender NEURO/PSYCH: awake and alert A/P: ?chest pain ?constipation Abnormal CT - circumferential wall thickening in inferior rectum down to anal canal, left hepatic lesion ACD H/o dysphagia H/o H. pylori gastritis and focal intestinal metaplasia (2009) - ?treated CRC screen - polyp (unknown kind) in 2002, last colonoscopy normal (but poor prep) in 2009 Dementia -- Family coming from out of town. Continue same for now, will return to see later w/ Dr. Layton. SHAZIA MCNALLY Oct 16, 2018 09:25
[2018-10-16] MEDS ORDERED: POLYETHYLENE GLYCOL 3350 17 GM PACKET. PO PRN (09:30)
--- NOTE | 2018-10-16 09:37 | NUR ---
IP: Pt has a hx of + mrsa screen 12/2016. Pt to be in contact precautions until there are 2 negative screens 7 days apart.
[2018-10-16] MEDS: POLYETHYLENE GLYCOL 3350 17 GM PACKET. PO SCH (10:29)
[2018-10-16 10:52] VITALS: BP 156/65
--- NOTE | 2018-10-16 11:52 | NUR ---
SS following for discharge planning. SS received notification that pt was from [facility], ; fax [phone]. SS contacted [facility] to verify pt's previous placement. [facility] confirmed that pt was a LTC resident from there facility and was able to return when medically stable. Pt's RN notified.
--- NOTE | 2018-10-16 12:38 | PDOC ---
PROGRESS NOTES Chief Complaint Chief Complaint Atypical Chest pain Diastolic CHF; HTN HYPERLIPIDEMIA Colitis with hepatic lesion: malignancy Circumferential wall thickening of the inferior rectum and at the anal canal. No surrounding edema is evident. this could represent low-grade inflammation from distal colitis, rectal malignancy CKD stage 3 COPD PAFIB: Dementia/debility History of Present Illness History of Present Illness 83-year-old male who presents with complaint of chest pain shortness of breath started this morning at about 1:00. Patient rates pain as being moderate. Patient was given 4 baby aspirin and nitroglycerin prior to arrival but states that pain is no better after nitroglycerin. He states that symptom onset was at rest. He denies any nausea, vomiting or diaphoresis. Patient states that nothing improves his symptoms. he has a cough and allergy symptoms as well and is given claritin and mucinex dm in er. Found with rectal wall thickening and hepatic lesion on CT abdomen, concern for metastatic colorectal malignancy. GI consulted. Patient currently has no complaints, however, has not been able to have a BM. Discussed with his nephew bedside about considering colonoscopy, but results would not change therapy or outcomes. He wishes to speak with his cousin (patient's daughter first). Vitals Vitals Vital Signs Date Time Temp Pulse Resp B/P (MAP) Pulse Ox O2 Delivery O2 Flow Rate FiO2 10/16/18 12:00 79 156/65 10/16/18 10:52 98.3 20 96 Room Air 98.3 Physical Exam General: Alert, No acute distress, Other (uncooperative) Heart: Regular rate (SR), Normal S1, Normal S2, Other (2/6 systolic murmur to LLS border) Lungs: Clear Abdomen: Soft, No tenderness Extremities: No cyanosis, Other (trace to 1+ bilaterl LE edema) Skin: No significant lesion Labs LABS Laboratory Tests Test 10/15/18 12:50 10/16/18 02:55 Urine Color Yellow Urine Clarity Clear Urine pH 5.0 Urine Specific [place] >=1.030 Urine Protein Negative mg/dL (NEG-TRACE) Urine Glucose (UA) Negative mg/dL (NEG) Urine Ketones (Stick) Negative mg/dL (NEG) Urine Blood Negative (NEG) Urine Nitrite Negative (NEG) Urine Bilirubin Negative (NEG) Urine Urobilinogen Dipstick 0.2 mg/dL (0.2 mg/dL) Urine Leukocyte Esterase Negative (NEG) Urine RBC 0 /HPF (0-2) Urine WBC 0 /HPF (0-4) Urine Squamous Epithelial Cells Few /LPF Urine Bacteria 0 /HPF (0-FEW) White Blood Count 7.1 x10^3/uL (4.0-11.0) Red Blood Count 4.21 x10^6/uL (4.30-5.70) Hemoglobin 12.0 g/dL (13.0-17.5) Hematocrit 36.3 % (39.0-53.0) Mean Corpuscular Volume 86 fL (79-100) Mean Corpuscular Hemoglobin 29 pg (25-35) Mean Corpuscular Hemoglobin Concent 33 g/dL (31-37) Red Cell Distribution Width 15.7 % (11.5-14.5) Platelet Count 201 x10^3/uL (140-400) Neutrophils (%) (Auto) 68 % (31-73) Lymphocytes (%) (Auto) 17 % (24-48) Monocytes (%) (Auto) 8 % (0-9) Eosinophils (%) (Auto) 7 % (0-3) Basophils (%) (Auto) 0 % (0-3) Neutrophils # (Auto) 4.8 x10^3uL (1.8-7.7) Lymphocytes # (Auto) 1.2 x10^3/uL (1.0-4.8) Monocytes # (Auto) 0.5 x10^3/uL (0.0-1.1) Eosinophils # (Auto) 0.5 x10^3/uL (0.0-0.7) Basophils # (Auto) 0.0 x10^3/uL (0.0-0.2) Sodium Level 142 mmol/L (136-145) Potassium Level 4.0 mmol/L (3.5-5.1) Chloride Level 107 mmol/L (98-107) Carbon Dioxide Level 27 mmol/L (21-32) Anion Gap 8 (6-14) Blood Urea Nitrogen 20 mg/dL (8-26) Creatinine 1.3 mg/dL (0.7-1.3) Estimated GFR (Cockcroft-Gault) 63.9 BUN/Creatinine Ratio 15 (6-20) Glucose Level 106 mg/dL (70-99) Calcium Level 8.7 mg/dL (8.5-10.1) Total Bilirubin 0.3 mg/dL (0.2-1.0) Aspartate Amino Transf (AST/SGOT) 21 U/L (15-37) Alanine Aminotransferase (ALT/SGPT) 28 U/L (16-63) Alkaline Phosphatase 129 U/L (46-116) Total Protein 7.1 g/dL (6.4-8.2) Albumin 3.2 g/dL (3.4-5.0) Albumin/Globulin Ratio 0.8 (1.0-1.7) Assessment and Plan Assessmemt and Plan Problems Medical Problems: (1) Chest pain Status: Acute Comment Review of Relevant I have reviewed the following items rosy (where applicable) has been applied. Labs Laboratory Tests Test 10/15/18 02:21 10/15/18 09:15 10/15/18 11:20 10/15/18 12:50 White Blood Count 6.8 x10^3/uL (4.0-11.0) Red Blood Count 4.38 x10^6/uL (4.30-5.70) Hemoglobin 12.3 g/dL (13.0-17.5) Hematocrit 37.9 % (39.0-53.0) Mean Corpuscular Volume 87 fL (79-100) Mean Corpuscular Hemoglobin 28 pg (25-35) Mean Corpuscular Hemoglobin Concent 33 g/dL (31-37) Red Cell Distribution Width 15.0 % (11.5-14.5) Platelet Count 217 x10^3/uL (140-400) Neutrophils (%) (Auto) 65 % (31-73) Lymphocytes (%) (Auto) 20 % (24-48) Monocytes (%) (Auto) 8 % (0-9) Eosinophils (%) (Auto) 7 % (0-3) Basophils (%) (Auto) 1 % (0-3) Neutrophils # (Auto) 4.4 x10^3uL (1.8-7.7) Lymphocytes # (Auto) 1.3 x10^3/uL (1.0-4.8) Monocytes # (Auto) 0.6 x10^3/uL (0.0-1.1) Eosinophils # (Auto) 0.5 x10^3/uL (0.0-0.7) Basophils # (Auto) 0.0 x10^3/uL (0.0-0.2) Sodium Level 141 mmol/L (136-145) Potassium Level 4.0 mmol/L (3.5-5.1) Chloride Level 106 mmol/L (98-107) Carbon Dioxide Level 27 mmol/L (21-32) Anion Gap 8 (6-14) Blood Urea Nitrogen 22 mg/dL (8-26) Creatinine 1.2 mg/dL (0.7-1.3) Estimated GFR (Cockcroft-Gault) 70.1 BUN/Creatinine Ratio 18 (6-20) Glucose Level 136 mg/dL (70-99) Calcium Level 9.0 mg/dL (8.5-10.1) Magnesium Level 2.2 mg/dL (1.8-2.4) Total Bilirubin 0.2 mg/dL (0.2-1.0) Aspartate Amino Transf (AST/SGOT) 14 U/L (15-37) Alanine Aminotransferase (ALT/SGPT) 20 U/L (16-63) Alkaline Phosphatase 125 U/L (46-116) Troponin I Quantitative < 0.017 ng/mL (0.000-0.055) < 0.017 ng/mL (0.000-0.055) < 0.017 ng/mL (0.000-0.055) LS-Tcw-Y-Type Natriuretic Peptide 64 pg/mL (0-449) Total Protein 7.5 g/dL (6.4-8.2) Albumin 3.1 g/dL (3.4-5.0) Albumin/Globulin Ratio 0.7 (1.0-1.7) Lipase 132 U/L (73-393) Iron Level 53 ug/dL (65-175) Total Iron Binding Capacity 209 ug/dL (250-450) Iron Saturation 25 % (15-34) Triglycerides Level 78 mg/dL (0-150) Cholesterol Level 187 mg/dL (0-200) LDL Cholesterol, Calculated 128 mg/dL (0-100) VLDL Cholesterol, Calculated 16 mg/dL (0-40) Non-HDL Cholesterol Calculated 144 mg/dL (0-129) HDL Cholesterol 43 mg/dL (40-60) Cholesterol/HDL Ratio 4.3 Thyroid Stimulating Hormone (TSH) 1.785 uIU/mL (0.358-3.74) Urine Color Yellow Urine Clarity Clear Urine pH 5.0 Urine Specific [place] >=1.030 Urine Protein Negative mg/dL (NEG-TRACE) Urine Glucose (UA) Negative mg/dL (NEG) Urine Ketones (Stick) Negative mg/dL (NEG) Urine Blood Negative (NEG) Urine Nitrite Negative (NEG) Urine Bilirubin Negative (NEG) Urine Urobilinogen Dipstick 0.2 mg/dL (0.2 mg/dL) Urine Leukocyte Esterase Negative (NEG) Urine RBC 0 /HPF (0-2) Urine WBC 0 /HPF (0-4) Urine Squamous Epithelial Cells Few /LPF Urine Bacteria 0 /HPF (0-FEW) Test 10/16/18 02:55 White Blood Count 7.1 x10^3/uL (4.0-11.0) Red Blood Count 4.21 x10^6/uL (4.30-5.70) Hemoglobin 12.0 g/dL (13.0-17.5) Hematocrit 36.3 % (39.0-53.0) Mean Corpuscular Volume 86 fL (79-100) Mean Corpuscular Hemoglobin 29 pg (25-35) Mean Corpuscular Hemoglobin Concent 33 g/dL (31-37) Red Cell Distribution Width 15.7 % (11.5-14.5) Platelet Count 201 x10^3/uL (140-400) Neutrophils (%) (Auto) 68 % (31-73) Lymphocytes (%) (Auto) 17 % (24-48) Monocytes (%) (Auto) 8 % (0-9) Eosinophils (%) (Auto) 7 % (0-3) Basophils (%) (Auto) 0 % (0-3) Neutrophils # (Auto) 4.8 x10^3uL (1.8-7.7) Lymphocytes # (Auto) 1.2 x10^3/uL (1.0-4.8) Monocytes # (Auto) 0.5 x10^3/uL (0.0-1.1) Eosinophils # (Auto) 0.5 x10^3/uL (0.0-0.7) Basophils # (Auto) 0.0 x10^3/uL (0.0-0.2) Sodium Level 142 mmol/L (136-145) Potassium Level 4.0 mmol/L (3.5-5.1) Chloride Level 107 mmol/L (98-107) Carbon Dioxide Level 27 mmol/L (21-32) Anion Gap 8 (6-14) Blood Urea Nitrogen 20 mg/dL (8-26) Creatinine 1.3 mg/dL (0.7-1.3) Estimated GFR (Cockcroft-Gault) 63.9 BUN/Creatinine Ratio 15 (6-20) Glucose Level 106 mg/dL (70-99) Calcium Level 8.7 mg/dL (8.5-10.1) Total Bilirubin 0.3 mg/dL (0.2-1.0) Aspartate Amino Transf (AST/SGOT) 21 U/L (15-37) Alanine Aminotransferase (ALT/SGPT) 28 U/L (16-63) Alkaline Phosphatase 129 U/L (46-116) Total Protein 7.1 g/dL (6.4-8.2) Albumin 3.2 g/dL (3.4-5.0) Albumin/Globulin Ratio 0.8 (1.0-1.7) Laboratory Tests Test 10/15/18 12:50 10/16/18 02:55 Urine Color Yellow Urine Clarity Clear Urine pH 5.0 Urine Specific [place] >=1.030 Urine Protein Negative mg/dL (NEG-TRACE) Urine Glucose (UA) Negative mg/dL (NEG) Urine Ketones (Stick) Negative mg/dL (NEG) Urine Blood Negative (NEG) Urine Nitrite Negative (NEG) Urine Bilirubin Negative (NEG) Urine Urobilinogen Dipstick 0.2 mg/dL (0.2 mg/dL) Urine Leukocyte Esterase Negative (NEG) Urine RBC 0 /HPF (0-2) Urine WBC 0 /HPF (0-4) Urine Squamous Epithelial Cells Few /LPF Urine Bacteria 0 /HPF (0-FEW) White Blood Count 7.1 x10^3/uL (4.0-11.0) Red Blood Count 4.21 x10^6/uL (4.30-5.70) Hemoglobin 12.0 g/dL (13.0-17.5) Hematocrit 36.3 % (39.0-53.0) Mean Corpuscular Volume 86 fL (79-100) Mean Corpuscular Hemoglobin 29 pg (25-35) Mean Corpuscular Hemoglobin Concent 33 g/dL (31-37) Red Cell Distribution Width 15.7 % (11.5-14.5) Platelet Count 201 x10^3/uL (140-400) Neutrophils (%) (Auto) 68 % (31-73) Lymphocytes (%) (Auto) 17 % (24-48) Monocytes (%) (Auto) 8 % (0-9) Eosinophils (%) (Auto) 7 % (0-3) Basophils (%) (Auto) 0 % (0-3) Neutrophils # (Auto) 4.8 x10^3uL (1.8-7.7) Lymphocytes # (Auto) 1.2 x10^3/uL (1.0-4.8) Monocytes # (Auto) 0.5 x10^3/uL (0.0-1.1) Eosinophils # (Auto) 0.5 x10^3/uL (0.0-0.7) Basophils # (Auto) 0.0 x10^3/uL (0.0-0.2) Sodium Level 142 mmol/L (136-145) Potassium Level 4.0 mmol/L (3.5-5.1) Chloride Level 107 mmol/L (98-107) Carbon Dioxide Level 27 mmol/L (21-32) Anion Gap 8 (6-14) Blood Urea Nitrogen 20 mg/dL (8-26) Creatinine 1.3 mg/dL (0.7-1.3) Estimated GFR (Cockcroft-Gault) 63.9 BUN/Creatinine Ratio 15 (6-20) Glucose Level 106 mg/dL (70-99) Calcium Level 8.7 mg/dL (8.5-10.1) Total Bilirubin 0.3 mg/dL (0.2-1.0) Aspartate Amino Transf (AST/SGOT) 21 U/L (15-37) Alanine Aminotransferase (ALT/SGPT) 28 U/L (16-63) Alkaline Phosphatase 129 U/L (46-116) Total Protein 7.1 g/dL (6.4-8.2) Albumin 3.2 g/dL (3.4-5.0) Albumin/Globulin Ratio 0.8 (1.0-1.7) Medications Current Medications Morphine Sulfate (Morphine Sulfate) 2 mg PRN Q15MIN PRN IV/SQ PAIN GREATER THAN 3/10 Last administered on 10/15/18at 04:09; Start 10/15/18 at 02:15; Stop at 02:14; Status DC Ondansetron HCl (Zofran) 4 mg 1X ONCE IV ; Start 10/15/18 at 03:00; Stop at 03:01; Status DC Iohexol (Omnipaque 300 Mg/ml) 75 ml 1X ONCE IV Last administered on 10/15/18at 03:46; Start 10/15/18 at 04:00; Stop 10/15/18 at 04:01; Status DC Info (CONTRAST GIVEN -- Rx MONITORING) 1 each PRN DAILY PRN MC SEE COMMENTS; Start 10/15/18 at 03:45; Stop 10/17/18 at 03:44 Diphenhydramine HCl (Benadryl) 25 mg 1X ONCE IVP Last administered on at 04:07; Start 10/15/18 at 04:30; Stop 10/15/18 at 04:31; Status DC Ondansetron HCl (Zofran) 4 mg PRN Q8HRS PRN IV NAUSEA/VOMITING 1ST CHOICE; Start 10/15/18 at 05:15; Stop 10/16/18 at 05:14; Status DC Morphine Sulfate (Morphine Sulfate) 2 mg PRN Q2HR PRN IV SEVERE PAIN Last administered on 10/15/18at 21:16; Start 10/15/18 at 05:15; Stop 10/16/18 at 05:14 ; Status DC Aspirin (Ecotrin) 81 mg DAILYWBKFT PO Last administered on 10/16/18at 08:28; Start 10/15/18 at 11:00 Labetalol HCl (Normodyne Iv Push) 20 mg PRN Q2HR PRN IVP HYPERTENSION, SEE COMMENTS Last administered on 10/15/18at 11:07; Start 10/15/18 at 09:30; Stop at 17:20; Status DC Amlodipine Besylate (Norvasc) 10 mg DAILY PO Last administered on 10/16/18at 08: 28; Start 10/15/18 at 11:00 Losartan Potassium (Cozaar) 100 mg DAILY PO Last administered on 10/16/18at 08: 27; Start 10/15/18 at 11:00 Pantoprazole Sodium (Protonix) 40 mg DAILYAC PO Last administered on 10/16/18at 08:28; Start 10/15/18 at 16:30 Nitroglycerin (Nitro-Bid Oint) 1 inch Q6HRS TP Last administered on 10/16/18at 06:14; Start 10/15/18 at 18:00 Hydralazine HCl (Apresoline Inj) 10 mg PRN Q4HRS PRN IVP ELEVATED BP, SEE COMMENTS; Start 10/15/18 at 17:30 Metoprolol Tartrate (Lopressor) 12.5 mg BID PO Last administered on 10/16/18at 08:27; Start 10/15/18 at 21:00 Diphenhydramine HCl (Benadryl) 12.5 mg 1X ONCE IM ; Start 10/15/18 at 21:30; Stop 10/15/18 at 21:31; Status Cancel Diphenhydramine HCl (Benadryl) 25 mg 1X ONCE IVP ; Start 10/15/18 at 21:45; Stop 10/15/18 at 21:46; Status DC Diphenhydramine HCl (Benadryl) 12.5 mg 1X ONCE IVP Last administered on at 08:12; Start 10/16/18 at 07:45; Stop 10/16/18 at 07:48; Status DC Polyethylene Glycol (miraLAX PACKET) 17 gm DAILY PO Last administered on at 10:29; Start 10/16/18 at 10:00 Polyethylene Glycol (miraLAX PACKET) 17 gm PRN DAILY PRN PO CONSTIPATION; Start 10/16/18 at 09:30 Active Scripts Active [Metoprolol Tartrate] 25 MG Tablet 12.5 Mg PO BID [Aspirin] 81 MG Tablet.dr 81 Mg PO DAILYWBKFT Tylenol (Acetaminophen) 325 Mg Tablet 650 Mg PO PRN Q6HRS PRN Reported Trazodone Hcl 50 Mg Tablet 50 Mg PO HS Senna S Tablet (Sennosides/Docusate Sodium) 1 Each Tablet 2 Each PO BID Ranitidine Hcl 150 Mg Tablet 1 Tab PO PRN Q12HR PRN Ranitidine Hcl 150 Mg Tablet 1 Tab PO HS Ipratropium [place] 0.2 Mg/1 Ml Solution 1 Vial NEB QID Flomax (Tamsulosin Hcl) 0.4 Mg Cap.er.24h 0.4 Mg PO HS Amlodipine Besylate 10 Mg Tablet 10 Mg PO DAILY Losartan Potassium 100 Mg Tablet 100 Mg PO DAILY Finasteride 5 Mg Tablet 1 Tab PO DAILY [place] 5-325 Tablet (Acetaminophen/Hydrocodone Bitart) 1 Each Tablet 1 Tab PO PRN Q6HRS PRN Artificial Tears Eye Drops (Dextran 70/Hypromellose) 15 Ml Drops 1 Drop EACHEYE PRN DAILY PRN Clonazepam 0.5 Mg Tablet 1 Tab PO HS Vitals/I & O Vital Sign - Last 24 Hours 10/15/18 10/15/18 10/15/18 10/15/18 13:00 13:01 13:18 14:00 Pulse 81 68 Resp 20 18 17 B/P (MAP) 176/88 (117) 157/72 (100) Pulse Ox 95 97 O2 Delivery Room Air Room Air 10/15/18 10/15/18 10/15/18 10/15/18 14:15 14:30 17:34 19:48 Temp 97.4 97.9 97.4 97.9 Pulse 64 77 69 Resp 20 20 B/P (MAP) 187/78 (114) 182/86 106/57 (73) Pulse Ox 91 95 O2 Delivery Room Air Room Air Room Air 10/15/18 10/15/18 10/15/18 10/15/18 20:00 21:16 21:16 21:46 Pulse 89 B/P (MAP) 106/57 Pulse Ox 95 93 O2 Delivery Room Air Room Air Room Air 10/15/18 10/16/18 10/16/18 10/16/18 23:36 00:00 03:10 06:14 Temp 98.2 98.2 98.2 98.2 Pulse 82 82 90 90 Resp 18 18 B/P (MAP) 144/63 (90) 144/63 157/71 (99) 157/71 Pulse Ox 93 93 O2 Delivery Room Air Room Air 10/16/18 10/16/18 10/16/18 10/16/18 07:00 08:00 08:27 08:27 Temp 98.2 98.2 Pulse 87 87 87 Resp 22 B/P (MAP) 151/65 (93) 151/65 151/65 Pulse Ox 92 O2 Delivery Room Air Room Air 10/16/18 10/16/18 10/16/18 08:28 10:52 12:00 Temp 98.3 98.3 Pulse 87 79 79 Resp 20 B/P (MAP) 151/65 156/65 (95) 156/65 Pulse Ox 96 O2 Delivery Room Air Intake and Output 10/15/18 10/15/18 10/16/18 15:00 23:00 07:00 Intake Total 60 ml 0 ml 100 ml Output Total 0 ml Balance 60 ml 0 ml 100 ml KAYLA WALL MD Oct 16, 2018 12:38
[2018-10-16 15:09] VITALS: BP 165/79
--- NOTE | 2018-10-16 18:05 | PDOC ---
PROGRESS NOTES Subjective Subjective Patient seen and examined Objective Objective Vital Signs Date Time Temp Pulse Resp B/P (MAP) Pulse Ox O2 Delivery O2 Flow Rate FiO2 10/16/18 15:09 98.4 96 20 165/79 (107) 96 Room Air 98.4 Intake and Output 10/16/18 07:00 Intake Total 160 ml Output Total 0 ml Balance 160 ml Intake Oral 160 ml Output Urine Total 0 ml # Voids 4 Physical Exam Abdomen: Normal bowel sounds Heart: Regular rate General: No acute distress Lungs: Other (slightly decreased breath sounds) Assessment Assessment Problems Medical Problems: (1) Chest pain Status: Acute Chest pain. Atypical. No acute ischemic EKG changes. Troponin normal. Echocardiogram with intact LV systolic function. We'll continue medical treatment. Diastolic heart failure. Compensated this time. Continue medical treatment. Echo as above. Hypertension. Restarting losartan and Norvasc. Monitoring. Hyperlipidemia. Check lipid panel. Adjust medications as needed. Chronic kidney disease. Monitoring lab. Paroxysmal atrial fibrillation. Currently in sinus rhythm with first-degree AV block. Chronic left bundle branch block. Continue telemetry. Possible outpatient monitoring. Dementia. Comment Review of Relevant I have reviewed the following items rosy (where applicable) has been applied. Labs Laboratory Tests Test 10/15/18 02:21 10/15/18 09:15 10/15/18 11:20 10/15/18 12:50 White Blood Count 6.8 x10^3/uL (4.0-11.0) Red Blood Count 4.38 x10^6/uL (4.30-5.70) Hemoglobin 12.3 g/dL (13.0-17.5) Hematocrit 37.9 % (39.0-53.0) Mean Corpuscular Volume 87 fL (79-100) Mean Corpuscular Hemoglobin 28 pg (25-35) Mean Corpuscular Hemoglobin Concent 33 g/dL (31-37) Red Cell Distribution Width 15.0 % (11.5-14.5) Platelet Count 217 x10^3/uL (140-400) Neutrophils (%) (Auto) 65 % (31-73) Lymphocytes (%) (Auto) 20 % (24-48) Monocytes (%) (Auto) 8 % (0-9) Eosinophils (%) (Auto) 7 % (0-3) Basophils (%) (Auto) 1 % (0-3) Neutrophils # (Auto) 4.4 x10^3uL (1.8-7.7) Lymphocytes # (Auto) 1.3 x10^3/uL (1.0-4.8) Monocytes # (Auto) 0.6 x10^3/uL (0.0-1.1) Eosinophils # (Auto) 0.5 x10^3/uL (0.0-0.7) Basophils # (Auto) 0.0 x10^3/uL (0.0-0.2) Sodium Level 141 mmol/L (136-145) Potassium Level 4.0 mmol/L (3.5-5.1) Chloride Level 106 mmol/L (98-107) Carbon Dioxide Level 27 mmol/L (21-32) Anion Gap 8 (6-14) Blood Urea Nitrogen 22 mg/dL (8-26) Creatinine 1.2 mg/dL (0.7-1.3) Estimated GFR (Cockcroft-Gault) 70.1 BUN/Creatinine Ratio 18 (6-20) Glucose Level 136 mg/dL (70-99) Calcium Level 9.0 mg/dL (8.5-10.1) Magnesium Level 2.2 mg/dL (1.8-2.4) Total Bilirubin 0.2 mg/dL (0.2-1.0) Aspartate Amino Transf (AST/SGOT) 14 U/L (15-37) Alanine Aminotransferase (ALT/SGPT) 20 U/L (16-63) Alkaline Phosphatase 125 U/L (46-116) Troponin I Quantitative < 0.017 ng/mL (0.000-0.055) < 0.017 ng/mL (0.000-0.055) < 0.017 ng/mL (0.000-0.055) DT-Pjo-B-Type Natriuretic Peptide 64 pg/mL (0-449) Total Protein 7.5 g/dL (6.4-8.2) Albumin 3.1 g/dL (3.4-5.0) Albumin/Globulin Ratio 0.7 (1.0-1.7) Lipase 132 U/L (73-393) Iron Level 53 ug/dL (65-175) Total Iron Binding Capacity 209 ug/dL (250-450) Iron Saturation 25 % (15-34) Triglycerides Level 78 mg/dL (0-150) Cholesterol Level 187 mg/dL (0-200) LDL Cholesterol, Calculated 128 mg/dL (0-100) VLDL Cholesterol, Calculated 16 mg/dL (0-40) Non-HDL Cholesterol Calculated 144 mg/dL (0-129) HDL Cholesterol 43 mg/dL (40-60) Cholesterol/HDL Ratio 4.3 Thyroid Stimulating Hormone (TSH) 1.785 uIU/mL (0.358-3.74) Urine Color Yellow Urine Clarity Clear Urine pH 5.0 Urine Specific [place] >=1.030 Urine Protein Negative mg/dL (NEG-TRACE) Urine Glucose (UA) Negative mg/dL (NEG) Urine Ketones (Stick) Negative mg/dL (NEG) Urine Blood Negative (NEG) Urine Nitrite Negative (NEG) Urine Bilirubin Negative (NEG) Urine Urobilinogen Dipstick 0.2 mg/dL (0.2 mg/dL) Urine Leukocyte Esterase Negative (NEG) Urine RBC 0 /HPF (0-2) Urine WBC 0 /HPF (0-4) Urine Squamous Epithelial Cells Few /LPF Urine Bacteria 0 /HPF (0-FEW) Test 10/15/18 20:17 10/16/18 02:55 Nasal Screen MRSA (PCR) Negative (Negative) White Blood Count 7.1 x10^3/uL (4.0-11.0) Red Blood Count 4.21 x10^6/uL (4.30-5.70) Hemoglobin 12.0 g/dL (13.0-17.5) Hematocrit 36.3 % (39.0-53.0) Mean Corpuscular Volume 86 fL (79-100) Mean Corpuscular Hemoglobin 29 pg (25-35) Mean Corpuscular Hemoglobin Concent 33 g/dL (31-37) Red Cell Distribution Width 15.7 % (11.5-14.5) Platelet Count 201 x10^3/uL (140-400) Neutrophils (%) (Auto) 68 % (31-73) Lymphocytes (%) (Auto) 17 % (24-48) Monocytes (%) (Auto) 8 % (0-9) Eosinophils (%) (Auto) 7 % (0-3) Basophils (%) (Auto) 0 % (0-3) Neutrophils # (Auto) 4.8 x10^3uL (1.8-7.7) Lymphocytes # (Auto) 1.2 x10^3/uL (1.0-4.8) Monocytes # (Auto) 0.5 x10^3/uL (0.0-1.1) Eosinophils # (Auto) 0.5 x10^3/uL (0.0-0.7) Basophils # (Auto) 0.0 x10^3/uL (0.0-0.2) Sodium Level 142 mmol/L (136-145) Potassium Level 4.0 mmol/L (3.5-5.1) Chloride Level 107 mmol/L (98-107) Carbon Dioxide Level 27 mmol/L (21-32) Anion Gap 8 (6-14) Blood Urea Nitrogen 20 mg/dL (8-26) Creatinine 1.3 mg/dL (0.7-1.3) Estimated GFR (Cockcroft-Gault) 63.9 BUN/Creatinine Ratio 15 (6-20) Glucose Level 106 mg/dL (70-99) Calcium Level 8.7 mg/dL (8.5-10.1) Total Bilirubin 0.3 mg/dL (0.2-1.0) Aspartate Amino Transf (AST/SGOT) 21 U/L (15-37) Alanine Aminotransferase (ALT/SGPT) 28 U/L (16-63) Alkaline Phosphatase 129 U/L (46-116) Total Protein 7.1 g/dL (6.4-8.2) Albumin 3.2 g/dL (3.4-5.0) Albumin/Globulin Ratio 0.8 (1.0-1.7) Laboratory Tests Test 10/15/18 20:17 10/16/18 02:55 Nasal Screen MRSA (PCR) Negative (Negative) White Blood Count 7.1 x10^3/uL (4.0-11.0) Red Blood Count 4.21 x10^6/uL (4.30-5.70) Hemoglobin 12.0 g/dL (13.0-17.5) Hematocrit 36.3 % (39.0-53.0) Mean Corpuscular Volume 86 fL (79-100) Mean Corpuscular Hemoglobin 29 pg (25-35) Mean Corpuscular Hemoglobin Concent 33 g/dL (31-37) Red Cell Distribution Width 15.7 % (11.5-14.5) Platelet Count 201 x10^3/uL (140-400) Neutrophils (%) (Auto) 68 % (31-73) Lymphocytes (%) (Auto) 17 % (24-48) Monocytes (%) (Auto) 8 % (0-9) Eosinophils (%) (Auto) 7 % (0-3) Basophils (%) (Auto) 0 % (0-3) Neutrophils # (Auto) 4.8 x10^3uL (1.8-7.7) Lymphocytes # (Auto) 1.2 x10^3/uL (1.0-4.8) Monocytes # (Auto) 0.5 x10^3/uL (0.0-1.1) Eosinophils # (Auto) 0.5 x10^3/uL (0.0-0.7) Basophils # (Auto) 0.0 x10^3/uL (0.0-0.2) Sodium Level 142 mmol/L (136-145) Potassium Level 4.0 mmol/L (3.5-5.1) Chloride Level 107 mmol/L (98-107) Carbon Dioxide Level 27 mmol/L (21-32) Anion Gap 8 (6-14) Blood Urea Nitrogen 20 mg/dL (8-26) Creatinine 1.3 mg/dL (0.7-1.3) Estimated GFR (Cockcroft-Gault) 63.9 BUN/Creatinine Ratio 15 (6-20) Glucose Level 106 mg/dL (70-99) Calcium Level 8.7 mg/dL (8.5-10.1) Total Bilirubin 0.3 mg/dL (0.2-1.0) Aspartate Amino Transf (AST/SGOT) 21 U/L (15-37) Alanine Aminotransferase (ALT/SGPT) 28 U/L (16-63) Alkaline Phosphatase 129 U/L (46-116) Total Protein 7.1 g/dL (6.4-8.2) Albumin 3.2 g/dL (3.4-5.0) Albumin/Globulin Ratio 0.8 (1.0-1.7) Medications Current Medications Morphine Sulfate (Morphine Sulfate) 2 mg PRN Q15MIN PRN IV/SQ PAIN GREATER THAN 3/10 Last administered on 10/15/18at 04:09; Start 10/15/18 at 02:15; Stop at 02:14; Status DC Ondansetron HCl (Zofran) 4 mg 1X ONCE IV ; Start 10/15/18 at 03:00; Stop at 03:01; Status DC Iohexol (Omnipaque 300 Mg/ml) 75 ml 1X ONCE IV Last administered on 10/15/18at 03:46; Start 10/15/18 at 04:00; Stop 10/15/18 at 04:01; Status DC Info (CONTRAST GIVEN -- Rx MONITORING) 1 each PRN DAILY PRN MC SEE COMMENTS; Start 10/15/18 at 03:45; Stop 10/17/18 at 03:44 Diphenhydramine HCl (Benadryl) 25 mg 1X ONCE IVP Last administered on at 04:07; Start 10/15/18 at 04:30; Stop 10/15/18 at 04:31; Status DC Ondansetron HCl (Zofran) 4 mg PRN Q8HRS PRN IV NAUSEA/VOMITING 1ST CHOICE; Start 10/15/18 at 05:15; Stop 10/16/18 at 05:14; Status DC Morphine Sulfate (Morphine Sulfate) 2 mg PRN Q2HR PRN IV SEVERE PAIN Last administered on 10/15/18at 21:16; Start 10/15/18 at 05:15; Stop 10/16/18 at 05:14 ; Status DC Aspirin (Ecotrin) 81 mg DAILYWBKFT PO Last administered on 10/16/18at 08:28; Start 10/15/18 at 11:00 Labetalol HCl (Normodyne Iv Push) 20 mg PRN Q2HR PRN IVP HYPERTENSION, SEE COMMENTS Last administered on 10/15/18at 11:07; Start 10/15/18 at 09:30; Stop at 17:20; Status DC Amlodipine Besylate (Norvasc) 10 mg DAILY PO Last administered on 10/16/18at 08: 28; Start 10/15/18 at 11:00 Losartan Potassium (Cozaar) 100 mg DAILY PO Last administered on 10/16/18at 08: 27; Start 10/15/18 at 11:00 Pantoprazole Sodium (Protonix) 40 mg DAILYAC PO Last administered on 10/16/18at 08:28; Start 10/15/18 at 16:30 Nitroglycerin (Nitro-Bid Oint) 1 inch Q6HRS TP Last administered on 10/16/18at 06:14; Start 10/15/18 at 18:00 Hydralazine HCl (Apresoline Inj) 10 mg PRN Q4HRS PRN IVP ELEVATED BP, SEE COMMENTS; Start 10/15/18 at 17:30 Metoprolol Tartrate (Lopressor) 12.5 mg BID PO Last administered on 10/16/18at 08:27; Start 10/15/18 at 21:00 Diphenhydramine HCl (Benadryl) 12.5 mg 1X ONCE IM ; Start 10/15/18 at 21:30; Stop 10/15/18 at 21:31; Status Cancel Diphenhydramine HCl (Benadryl) 25 mg 1X ONCE IVP ; Start 10/15/18 at 21:45; Stop 10/15/18 at 21:46; Status DC Diphenhydramine HCl (Benadryl) 12.5 mg 1X ONCE IVP Last administered on at 08:12; Start 10/16/18 at 07:45; Stop 10/16/18 at 07:48; Status DC Polyethylene Glycol (miraLAX PACKET) 17 gm DAILY PO Last administered on at 10:29; Start 10/16/18 at 10:00 Polyethylene Glycol (miraLAX PACKET) 17 gm PRN DAILY PRN PO CONSTIPATION; Start 10/16/18 at 09:30 Active Scripts Active [Metoprolol Tartrate] 25 MG Tablet 12.5 Mg PO BID [Aspirin] 81 MG Tablet. 81 Mg PO DAILYWBKFT Tylenol (Acetaminophen) 325 Mg Tablet 650 Mg PO PRN Q6HRS PRN Reported Trazodone Hcl 50 Mg Tablet 50 Mg PO HS Senna S Tablet (Sennosides/Docusate Sodium) 1 Each Tablet 2 Each PO BID Ranitidine Hcl 150 Mg Tablet 1 Tab PO PRN Q12HR PRN Ranitidine Hcl 150 Mg Tablet 1 Tab PO HS Ipratropium [place] 0.2 Mg/1 Ml Solution 1 Vial NEB QID Flomax (Tamsulosin Hcl) 0.4 Mg Cap.er.24h 0.4 Mg PO HS Amlodipine Besylate 10 Mg Tablet 10 Mg PO DAILY Losartan Potassium 100 Mg Tablet 100 Mg PO DAILY Finasteride 5 Mg Tablet 1 Tab PO DAILY [place] 5-325 Tablet (Acetaminophen/Hydrocodone Bitart) 1 Each Tablet 1 Tab PO PRN Q6HRS PRN Artificial Tears Eye Drops (Dextran 70/Hypromellose) 15 Ml Drops 1 Drop EACHEYE PRN DAILY PRN Clonazepam 0.5 Mg Tablet 1 Tab PO HS Vitals/I & O Vital Sign - Last 24 Hours 10/15/18 10/15/18 10/15/18 10/15/18 19:48 20:00 21:16 21:16 Temp 97.9 97.9 Pulse 69 89 Resp 20 B/P (MAP) 106/57 (73) 106/57 Pulse Ox 95 95 O2 Delivery Room Air Room Air Room Air 10/15/18 10/15/18 10/16/18 10/16/18 21:46 23:36 00:00 03:10 Temp 98.2 98.2 98.2 98.2 Pulse 82 82 90 Resp 18 18 B/P (MAP) 144/63 (90) 144/63 157/71 (99) Pulse Ox 93 93 93 O2 Delivery Room Air Room Air Room Air 10/16/18 10/16/18 10/16/18 10/16/18 06:14 07:00 08:00 08:27 Temp 98.2 98.2 Pulse 90 87 87 Resp 22 B/P (MAP) 157/71 151/65 (93) 151/65 Pulse Ox 92 O2 Delivery Room Air Room Air 10/16/18 10/16/18 10/16/18 10/16/18 08:27 08:28 10:52 12:00 Temp 98.3 98.3 Pulse 87 87 79 79 Resp 20 B/P (MAP) 151/65 151/65 156/65 (95) 156/65 Pulse Ox 96 O2 Delivery Room Air 10/16/18 15:09 Temp 98.4 98.4 Pulse 96 Resp 20 B/P (MAP) 165/79 (107) Pulse Ox 96 O2 Delivery Room Air Intake and Output 10/15/18 10/15/18 10/16/18 15:00 23:00 07:00 Intake Total 60 ml 0 ml 100 ml Output Total 0 ml Balance 60 ml 0 ml 100 ml LANA DUENAS MD Oct 16, 2018 18:05
[2018-10-16 19:33] VITALS: BP 161/77
[2018-10-16] MEDS ORDERED: MORPHINE SULFATE 2 MG/ML VIAL. IV PRN (20:30)
[2018-10-16 22:51] VITALS: BP 200/97
[2018-10-17 02:40] VITALS: BP 145/66
[2018-10-17] MEDS: NITROGLYCERIN OINT 1 GM PACKET. TP SCH ×3 (06:00→18:00)
[2018-10-17 07:00] VITALS: BP 176/82
[2018-10-17] MEDS: PANTOPRAZOLE 40 MG TABLET.DR. PO SCH (08:01)
--- NOTE | 2018-10-17 08:13 | PDOC ---
PROGRESS NOTES Chief Complaint Chief Complaint Atypical Chest pain Diastolic CHF; HTN HYPERLIPIDEMIA Colitis with hepatic lesion: malignancy Circumferential wall thickening of the inferior rectum and at the anal canal. No surrounding edema is evident. this could represent low-grade inflammation from distal colitis, rectal malignancy CKD stage 3 COPD PAFIB: Dementia/debility History of Present Illness History of Present Illness 83-year-old male who presents with complaint of chest pain shortness of breath started this morning at about 1:00. Patient rates pain as being moderate. Patient was given 4 baby aspirin and nitroglycerin prior to arrival but states that pain is no better after nitroglycerin. He states that symptom onset was at rest. He denies any nausea, vomiting or diaphoresis. Patient states that nothing improves his symptoms. he has a cough and allergy symptoms as well and is given claritin and mucinex dm in er. Found with rectal wall thickening and hepatic lesion on CT abdomen, concern for metastatic colorectal malignancy. GI consulted. Patient currently has no complaints, however, has not been able to have a BM. Discussed with his nephew bedside about considering colonoscopy, but results would not change therapy or outcomes. He wishes to speak with his cousin (patient's daughter first). Plan: Consider sigmoidoscopy, nephew will consent if GI wishes to move forward Vitals Vitals Vital Signs Date Time Temp Pulse Resp B/P (MAP) Pulse Ox O2 Delivery O2 Flow Rate FiO2 10/17/18 07:00 97.9 84 18 176/82 (113) 94 Room Air 97.9 Physical Exam General: No acute distress Heart: Regular rate Lungs: Clear Abdomen: Normal bowel sounds Extremities: No cyanosis, Other (trace to 1+ bilaterl LE edema) Skin: No significant lesion Assessment and Plan Assessmemt and Plan Problems Medical Problems: (1) Chest pain Status: Acute Comment Review of Relevant I have reviewed the following items rosy (where applicable) has been applied. Labs Laboratory Tests Test 10/15/18 09:15 10/15/18 11:20 10/15/18 12:50 10/15/18 20:17 Iron Level 53 ug/dL (65-175) Total Iron Binding Capacity 209 ug/dL (250-450) Iron Saturation 25 % (15-34) Troponin I Quantitative < 0.017 ng/mL (0.000-0.055) < 0.017 ng/mL (0.000-0.055) Triglycerides Level 78 mg/dL (0-150) Cholesterol Level 187 mg/dL (0-200) LDL Cholesterol, Calculated 128 mg/dL (0-100) VLDL Cholesterol, Calculated 16 mg/dL (0-40) Non-HDL Cholesterol Calculated 144 mg/dL (0-129) HDL Cholesterol 43 mg/dL (40-60) Cholesterol/HDL Ratio 4.3 Thyroid Stimulating Hormone (TSH) 1.785 uIU/mL (0.358-3.74) Urine Color Yellow Urine Clarity Clear Urine pH 5.0 Urine Specific [place] >=1.030 Urine Protein Negative mg/dL (NEG-TRACE) Urine Glucose (UA) Negative mg/dL (NEG) Urine Ketones (Stick) Negative mg/dL (NEG) Urine Blood Negative (NEG) Urine Nitrite Negative (NEG) Urine Bilirubin Negative (NEG) Urine Urobilinogen Dipstick 0.2 mg/dL (0.2 mg/dL) Urine Leukocyte Esterase Negative (NEG) Urine RBC 0 /HPF (0-2) Urine WBC 0 /HPF (0-4) Urine Squamous Epithelial Cells Few /LPF Urine Bacteria 0 /HPF (0-FEW) Nasal Screen MRSA (PCR) Negative (Negative) Test 10/16/18 02:55 White Blood Count 7.1 x10^3/uL (4.0-11.0) Red Blood Count 4.21 x10^6/uL (4.30-5.70) Hemoglobin 12.0 g/dL (13.0-17.5) Hematocrit 36.3 % (39.0-53.0) Mean Corpuscular Volume 86 fL (79-100) Mean Corpuscular Hemoglobin 29 pg (25-35) Mean Corpuscular Hemoglobin Concent 33 g/dL (31-37) Red Cell Distribution Width 15.7 % (11.5-14.5) Platelet Count 201 x10^3/uL (140-400) Neutrophils (%) (Auto) 68 % (31-73) Lymphocytes (%) (Auto) 17 % (24-48) Monocytes (%) (Auto) 8 % (0-9) Eosinophils (%) (Auto) 7 % (0-3) Basophils (%) (Auto) 0 % (0-3) Neutrophils # (Auto) 4.8 x10^3uL (1.8-7.7) Lymphocytes # (Auto) 1.2 x10^3/uL (1.0-4.8) Monocytes # (Auto) 0.5 x10^3/uL (0.0-1.1) Eosinophils # (Auto) 0.5 x10^3/uL (0.0-0.7) Basophils # (Auto) 0.0 x10^3/uL (0.0-0.2) Sodium Level 142 mmol/L (136-145) Potassium Level 4.0 mmol/L (3.5-5.1) Chloride Level 107 mmol/L (98-107) Carbon Dioxide Level 27 mmol/L (21-32) Anion Gap 8 (6-14) Blood Urea Nitrogen 20 mg/dL (8-26) Creatinine 1.3 mg/dL (0.7-1.3) Estimated GFR (Cockcroft-Gault) 63.9 BUN/Creatinine Ratio 15 (6-20) Glucose Level 106 mg/dL (70-99) Calcium Level 8.7 mg/dL (8.5-10.1) Total Bilirubin 0.3 mg/dL (0.2-1.0) Aspartate Amino Transf (AST/SGOT) 21 U/L (15-37) Alanine Aminotransferase (ALT/SGPT) 28 U/L (16-63) Alkaline Phosphatase 129 U/L (46-116) Total Protein 7.1 g/dL (6.4-8.2) Albumin 3.2 g/dL (3.4-5.0) Albumin/Globulin Ratio 0.8 (1.0-1.7) Medications Current Medications Morphine Sulfate (Morphine Sulfate) 2 mg PRN Q15MIN PRN IV/SQ PAIN GREATER THAN 3/10 Last administered on 10/15/18at 04:09; Start 10/15/18 at 02:15; Stop at 02:14; Status DC Ondansetron HCl (Zofran) 4 mg 1X ONCE IV ; Start 10/15/18 at 03:00; Stop at 03:01; Status DC Iohexol (Omnipaque 300 Mg/ml) 75 ml 1X ONCE IV Last administered on 10/15/18at 03:46; Start 10/15/18 at 04:00; Stop 10/15/18 at 04:01; Status DC Info (CONTRAST GIVEN -- Rx MONITORING) 1 each PRN DAILY PRN MC SEE COMMENTS; Start 10/15/18 at 03:45; Stop 10/17/18 at 03:44; Status DC Diphenhydramine HCl (Benadryl) 25 mg 1X ONCE IVP Last administered on at 04:07; Start 10/15/18 at 04:30; Stop 10/15/18 at 04:31; Status DC Ondansetron HCl (Zofran) 4 mg PRN Q8HRS PRN IV NAUSEA/VOMITING 1ST CHOICE; Start 10/15/18 at 05:15; Stop 10/16/18 at 05:14; Status DC Morphine Sulfate (Morphine Sulfate) 2 mg PRN Q2HR PRN IV SEVERE PAIN Last administered on 10/15/18at 21:16; Start 10/15/18 at 05:15; Stop 10/16/18 at 05:14 ; Status DC Aspirin (Ecotrin) 81 mg DAILYWBKFT PO Last administered on 10/16/18at 08:28; Start 10/15/18 at 11:00 Labetalol HCl (Normodyne Iv Push) 20 mg PRN Q2HR PRN IVP HYPERTENSION, SEE COMMENTS Last administered on 10/15/18at 11:07; Start 10/15/18 at 09:30; Stop at 17:20; Status DC Amlodipine Besylate (Norvasc) 10 mg DAILY PO Last administered on 10/16/18at 08: 28; Start 10/15/18 at 11:00 Losartan Potassium (Cozaar) 100 mg DAILY PO Last administered on 10/16/18at 08: 27; Start 10/15/18 at 11:00 Pantoprazole Sodium (Protonix) 40 mg DAILYAC PO Last administered on 10/17/18at 08:01; Start 10/15/18 at 16:30 Nitroglycerin (Nitro-Bid Oint) 1 inch Q6HRS TP Last administered on 10/17/18at 06:00; Start 10/15/18 at 18:00 Hydralazine HCl (Apresoline Inj) 10 mg PRN Q4HRS PRN IVP ELEVATED BP, SEE COMMENTS; Start 10/15/18 at 17:30 Metoprolol Tartrate (Lopressor) 12.5 mg BID PO Last administered on 10/16/18at 22:22; Start 10/15/18 at 21:00 Diphenhydramine HCl (Benadryl) 12.5 mg 1X ONCE IM ; Start 10/15/18 at 21:30; Stop 10/15/18 at 21:31; Status Cancel Diphenhydramine HCl (Benadryl) 25 mg 1X ONCE IVP ; Start 10/15/18 at 21:45; Stop 10/15/18 at 21:46; Status DC Diphenhydramine HCl (Benadryl) 12.5 mg 1X ONCE IVP Last administered on at 08:12; Start 10/16/18 at 07:45; Stop 10/16/18 at 07:48; Status DC Polyethylene Glycol (miraLAX PACKET) 17 gm DAILY PO Last administered on at 10:29; Start 10/16/18 at 10:00 Polyethylene Glycol (miraLAX PACKET) 17 gm PRN DAILY PRN PO CONSTIPATION; Start 10/16/18 at 09:30 Morphine Sulfate (Morphine Sulfate) 2 mg PRN Q4HRS PRN IV PAIN Last administered on 10/16/18at 22:58; Start 10/16/18 at 20:30 Active Scripts Active [Metoprolol Tartrate] 25 MG Tablet 12.5 Mg PO BID [Aspirin] 81 MG Tablet.dr 81 Mg PO DAILYWBKFT Tylenol (Acetaminophen) 325 Mg Tablet 650 Mg PO PRN Q6HRS PRN Reported Trazodone Hcl 50 Mg Tablet 50 Mg PO HS Senna S Tablet (Sennosides/Docusate Sodium) 1 Each Tablet 2 Each PO BID Ranitidine Hcl 150 Mg Tablet 1 Tab PO PRN Q12HR PRN Ranitidine Hcl 150 Mg Tablet 1 Tab PO HS Ipratropium [place] 0.2 Mg/1 Ml Solution 1 Vial NEB QID Flomax (Tamsulosin Hcl) 0.4 Mg Cap.er.24h 0.4 Mg PO HS Amlodipine Besylate 10 Mg Tablet 10 Mg PO DAILY Losartan Potassium 100 Mg Tablet 100 Mg PO DAILY Finasteride 5 Mg Tablet 1 Tab PO DAILY [place] 5-325 Tablet (Acetaminophen/Hydrocodone Bitart) 1 Each Tablet 1 Tab PO PRN Q6HRS PRN Artificial Tears Eye Drops (Dextran 70/Hypromellose) 15 Ml Drops 1 Drop EACHEYE PRN DAILY PRN Clonazepam 0.5 Mg Tablet 1 Tab PO HS Vitals/I & O Vital Sign - Last 24 Hours 10/16/18 10/16/18 10/16/18 10/16/18 08:27 08:27 08:28 10:52 Temp 98.3 98.3 Pulse 87 87 87 79 Resp 20 B/P (MAP) 151/65 151/65 151/65 156/65 (95) Pulse Ox 96 O2 Delivery Room Air 10/16/18 10/16/18 10/16/18 10/16/18 12:00 15:09 19:33 20:00 Temp 98.4 99.0 98.4 99.0 Pulse 79 96 90 Resp 20 20 B/P (MAP) 156/65 165/79 (107) 161/77 (105) Pulse Ox 96 94 O2 Delivery Room Air Room Air Room Air 10/16/18 10/16/18 10/16/18 10/16/18 22:22 22:51 22:58 22:58 Temp 99.0 99.0 Pulse 90 101 101 Resp 18 B/P (MAP) 161/77 200/97 (131) 200/97 Pulse Ox 93 93 O2 Delivery Room Air Room Air 10/16/18 10/17/18 10/17/18 10/17/18 23:28 02:40 06:00 07:00 Temp 98.8 97.9 98.8 97.9 Pulse 82 82 84 Resp 18 18 B/P (MAP) 145/66 (92) 145/66 176/82 (113) Pulse Ox 93 95 94 O2 Delivery Room Air Room Air Room Air Intake and Output 10/16/18 10/16/18 10/17/18 15:00 23:00 07:00 Intake Total 195 ml 240 ml 50 ml Balance 195 ml 240 ml 50 ml KAYLA WALL MD Oct 17, 2018 08:13
[2018-10-17] MEDS: METOPROLOL TART IMMED RELEASE 25 MG TABLET. PO SCH ×2 (08:51→21:11)
[2018-10-17] MEDS: POLYETHYLENE GLYCOL 3350 17 GM PACKET. PO SCH ×2 (08:51→21:00)
[2018-10-17] MEDS: ASPIRIN ENTERIC COATED 81 MG TABLET.DR. PO SCH (08:51)
[2018-10-17] MEDS: LOSARTAN POTASSIUM 50 MG TABLET. PO SCH (08:52)
[2018-10-17] MEDS: amLODIPine BESYLATE 10 MG TABLET PO SCH (08:52)
--- NOTE | 2018-10-17 10:19 | PDOC ---
Subjective: Subjective: "Stomach feels funny" and "are my bowel gonna move?" and "I might be going right now." Says ate two pancakes for breakfast. Objective: Objective: Reviewed w/ RN - no update on DPOA situation, nephew unable to reach daughter - he might come to the hospital later today. No stools. Vital Signs: Vital Signs Date Time Temp Pulse Resp B/P (MAP) Pulse Ox O2 Delivery O2 Flow Rate FiO2 10/17/18 08:52 84 176/82 10/17/18 08:00 Room Air 10/17/18 07:00 97.9 18 94 97.9 PE: GEN: NAD LUNGS: CTAB HEART: RRR ABD: round (stable) - BS less obvious compared to yesterday afternoon, non- tender NEURO/PSYCH: awake and alert, maybe a little confused A/P: H/o constipation -on Miralax Abnormal CT ---> circumferential wall thickening in inferior rectum down to anal canal, left hepatic lesion -last colonoscopy in 2009 w/ poor prep, had a polyp (unknown type) in 2002 H/o H. pylori gastritis and focal intestinal metaplasia (2009) ---> ?treated -on PPI here ACP, HTN, ACD, dementia -- Could pursue flex sig if family consents. SHAZIA MCNALLY Oct 17, 2018 10:19
[2018-10-17 10:43] VITALS: BP 148/77
[2018-10-17] MEDS ORDERED: LACTULOSE 20 GM/30 ML SOLUTION. PO PRN (11:30)
[2018-10-17 15:11] VITALS: BP 164/94
[2018-10-17 19:30] VITALS: BP 172/79
[2018-10-17 23:38] VITALS: BP 147/65
[2018-10-18 03:40] VITALS: BP 157/82
[2018-10-18] MEDS: NITROGLYCERIN OINT 1 GM PACKET. TP SCH ×5 (06:23→23:25)
[2018-10-18 07:41] VITALS: BP 91/50
[2018-10-18] MEDS: POLYETHYLENE GLYCOL 3350 17 GM PACKET. PO SCH ×2 (08:19→20:48)
[2018-10-18] MEDS: METOPROLOL TART IMMED RELEASE 25 MG TABLET. PO SCH ×2 (08:20→20:48)
[2018-10-18] MEDS: amLODIPine BESYLATE 10 MG TABLET PO SCH (08:21)
[2018-10-18] MEDS: ASPIRIN ENTERIC COATED 81 MG TABLET.DR. PO SCH (08:22)
[2018-10-18] MEDS: LOSARTAN POTASSIUM 50 MG TABLET. PO SCH (08:22)
[2018-10-18] MEDS: PANTOPRAZOLE 40 MG TABLET.DR. PO SCH (08:22)
[2018-10-18 11:00] VITALS: BP 148/69
--- NOTE | 2018-10-18 12:07 | PDOC ---
PROGRESS NOTES Chief Complaint Chief Complaint CC: CP, SOB, and abdominal pain History of Present Illness History of Present Illness Pt seen and examined this morning, pleasantly confused. Pt is a resident at [facility] and states he uses a wheel chair to get around Complains of itching, no other complaints Plans of care discussed with nursing Vitals Vitals Vital Signs Date Time Temp Pulse Resp B/P (MAP) Pulse Ox O2 Delivery O2 Flow Rate FiO2 10/18/18 08:22 83 91/50 10/18/18 08:00 Room Air 10/18/18 07:41 98.3 28 89 98.3 Physical Exam General: Alert, Cooperative, No acute distress, Other (pleasantly confused) Heart: Regular rate, Normal S1, Normal S2, No murmurs Lungs: Clear, Other (No crackels ro wheezes heard) Abdomen: Normal bowel sounds, Soft, No tenderness Extremities: No clubbing, No cyanosis, Other (trace to 1+ bilaterl LE edema) Skin: No rashes, No breakdown, No significant lesion Labs LABS Laboratory Tests Test 10/18/18 10:38 Glucose (Fingerstick) 97 mg/dL (70-99) Review of Systems Review of Systems Denies N/V Denies CP/SOA Denies changes in bowel habits Admits to face itching Assessment and Plan Assessmemt and Plan Assessment: Atypical Chest pain Diastolic CHF, compensated HTN HLD CKD stage 3 COPD PAFIB Arthritis A-flutter Dementia/debility 10/15 CXR Mild central vascular congestion and interstitial thickening, likely mild edema. 10/[address]: circumferential wall thickening of the inferior rectum and at the anal canal. No surrounding edema is evident. May represent low-grade inflammation from distal colitis, rectal malignancy is also a consideration given the absence of inflammatory edema. Indeterminate 1.5 cm hypodense left hepatic lobe lesion. Plan: Benadryl 25mg q6h prn for itching Discussed CT findings with pt and need for sigmoidoscopy on Saturday, appreciate GI recommendations Cardiac w/o negative for acute pathology, appreciate recommendations Discussed plans of care with RN Recheck labs in the am Bowel Regimen PT/OT ordered Problems Medical Problems: (1) Chest pain Status: Acute Comment Review of Relevant I have reviewed the following items rosy (where applicable) has been applied. Labs Laboratory Tests Test 10/18/18 10:38 Glucose (Fingerstick) 97 mg/dL (70-99) Laboratory Tests Test 10/18/18 10:38 Glucose (Fingerstick) 97 mg/dL (70-99) Medications Current Medications Morphine Sulfate (Morphine Sulfate) 2 mg PRN Q15MIN PRN IV/SQ PAIN GREATER THAN 3/10 Last administered on 10/15/18 04:09; Start 10/15/18 at 02:15; Stop at 02:14; Status DC Ondansetron HCl (Zofran) 4 mg 1X ONCE IV ; Start 10/15/18 at 03:00; Stop at 03:01; Status DC Iohexol (Omnipaque 300 Mg/ml) 75 ml 1X ONCE IV Last administered on 10/15/18at 03:46; Start 10/15/18 at 04:00; Stop 10/15/18 at 04:01; Status DC Info (CONTRAST GIVEN -- Rx MONITORING) 1 each PRN DAILY PRN MC SEE COMMENTS; Start 10/15/18 at 03:45; Stop 10/17/18 at 03:44; Status DC Diphenhydramine HCl (Benadryl) 25 mg 1X ONCE IVP Last administered on at 04:07; Start 10/15/18 at 04:30; Stop 10/15/18 at 04:31; Status DC Ondansetron HCl (Zofran) 4 mg PRN Q8HRS PRN IV NAUSEA/VOMITING 1ST CHOICE; Start 10/15/18 at 05:15; Stop 10/16/18 at 05:14; Status DC Morphine Sulfate (Morphine Sulfate) 2 mg PRN Q2HR PRN IV SEVERE PAIN Last administered on 10/15/18at 21:16; Start 10/15/18 at 05:15; Stop 10/16/18 at 05:14 ; Status DC Aspirin (Ecotrin) 81 mg DAILYWBKFT PO Last administered on 10/18/18at 08:22; Start 10/15/18 at 11:00 Labetalol HCl (Normodyne Iv Push) 20 mg PRN Q2HR PRN IVP HYPERTENSION, SEE COMMENTS Last administered on 10/15/18at 11:07; Start 10/15/18 at 09:30; Stop at 17:20; Status DC Amlodipine Besylate (Norvasc) 10 mg DAILY PO Last administered on 10/17/18 08: 52; Start 10/15/18 at 11:00 Losartan Potassium (Cozaar) 100 mg DAILY PO Last administered on 10/17/18 08: 52; Start 10/15/18 at 11:00 Pantoprazole Sodium (Protonix) 40 mg DAILYAC PO Last administered on 10/18/18 08:22; Start 10/15/18 at 16:30 Nitroglycerin (Nitro-Bid Oint) 1 inch Q6HRS TP Last administered on 10/18/18at 06:23; Start 10/15/18 at 18:00 Hydralazine HCl (Apresoline Inj) 10 mg PRN Q4HRS PRN IVP ELEVATED BP, SEE COMMENTS; Start 10/15/18 at 17:30 Metoprolol Tartrate (Lopressor) 12.5 mg BID PO Last administered on 10/18/18at 08:20; Start 10/15/18 at 21:00 Diphenhydramine HCl (Benadryl) 12.5 mg 1X ONCE IM ; Start 10/15/18 at 21:30; Stop 10/15/18 at 21:31; Status Cancel Diphenhydramine HCl (Benadryl) 25 mg 1X ONCE IVP ; Start 10/15/18 at 21:45; Stop 10/15/18 at 21:46; Status DC Diphenhydramine HCl (Benadryl) 12.5 mg 1X ONCE IVP Last administered on at 08:12; Start 10/16/18 at 07:45; Stop 10/16/18 at 07:48; Status DC Polyethylene Glycol (miraLAX PACKET) 17 gm DAILY PO Last administered on at 08:51; Start 10/16/18 at 10:00; Stop 10/17/18 at 10:19; Status DC Polyethylene Glycol (miraLAX PACKET) 17 gm PRN DAILY PRN PO CONSTIPATION, 1ST CHOICE; Start 10/16/18 at 09:30 Morphine Sulfate (Morphine Sulfate) 2 mg PRN Q4HRS PRN IV PAIN Last administered on 10/16/18at 22:58; Start 10/16/18 at 20:30 Polyethylene Glycol (miraLAX PACKET) 17 gm BID PO Last administered on at 08:19; Start 10/17/18 at 21:00 Lactulose (Lactulose) 20 gm PRN DAILY PRN PO CONSTIPATION, 2ND CHOICE; Start at 11:30 Magnesium Citrate (Citroma) 296 ml 1X ONCE PO ; Start 10/19/18 at 12:00; Stop 10/19/18 at 12:01 Sodium Monofluorophosphate (Fleet Adult) 133 ml 1X ONCE [place] ; Start 10/20/18 at 08:00; Stop 10/20/18 at 08:01 Sodium Monofluorophosphate (Fleet Adult) 133 ml 1X ONCE TX ; Start 10/20/18 at 10:00; Stop 10/20/18 at 10:01 Active Scripts Active [Metoprolol Tartrate] 25 MG Tablet 12.5 Mg PO BID [Aspirin] 81 MG Tablet.dr 81 Mg PO DAILYWBKFT Tylenol (Acetaminophen) 325 Mg Tablet 650 Mg PO PRN Q6HRS PRN Reported Trazodone Hcl 50 Mg Tablet 50 Mg PO HS Senna S Tablet (Sennosides/Docusate Sodium) 1 Each Tablet 2 Each PO BID Ranitidine Hcl 150 Mg Tablet 1 Tab PO PRN Q12HR PRN Ranitidine Hcl 150 Mg Tablet 1 Tab PO HS Ipratropium [place] 0.2 Mg/1 Ml Solution 1 Vial NEB QID Flomax (Tamsulosin Hcl) 0.4 Mg Cap.er.24h 0.4 Mg PO HS Amlodipine Besylate 10 Mg Tablet 10 Mg PO DAILY Losartan Potassium 100 Mg Tablet 100 Mg PO DAILY Finasteride 5 Mg Tablet 1 Tab PO DAILY [place] 5-325 Tablet (Acetaminophen/Hydrocodone Bitart) 1 Each Tablet 1 Tab PO PRN Q6HRS PRN Artificial Tears Eye Drops (Dextran 70/Hypromellose) 15 Ml Drops 1 Drop EACHEYE PRN DAILY PRN Clonazepam 0.5 Mg Tablet 1 Tab PO HS Vitals/I & O Vital Sign - Last 24 Hours 10/17/18 10/17/18 10/17/18 10/17/18 15:11 19:30 19:47 21:11 Temp 97.7 98.9 97.7 98.9 Pulse 91 86 89 Resp 18 22 B/P (MAP) 164/94 (117) 172/79 (110) 172/79 Pulse Ox 95 94 O2 Delivery Room Air Room Air Room Air 10/17/18 10/18/18 10/18/18 10/18/18 23:38 00:00 03:40 06:23 Temp 98.1 98.9 98.1 98.9 Pulse 90 90 81 81 Resp 21 21 B/P (MAP) 147/65 (92) 147/65 157/82 (107) 157/82 Pulse Ox 92 97 O2 Delivery Room Air Room Air 10/18/18 10/18/18 10/18/18 10/18/18 07:41 08:00 08:20 08:21 Temp 98.3 98.3 Pulse 83 83 83 Resp 28 B/P (MAP) 91/50 (64) 91/50 91/50 Pulse Ox 89 O2 Delivery Room Air Room Air 10/18/18 08:22 Pulse 83 B/P (MAP) 91/50 Intake and Output 10/17/18 10/17/18 10/18/18 14:59 22:59 06:59 Intake Total 360 ml 100 ml 60 ml Output Total 0 ml Balance 360 ml 100 ml 60 ml ELIA ELMORE III DO Oct 18, 2018 12:07
[2018-10-18] MEDS: diphenhydrAMINE 50 MG/ML VIAL IVP PRN ×2 (12:57→23:26)
[2018-10-18 15:12] VITALS: BP 164/83
[2018-10-18 19:30] VITALS: BP 139/65
[2018-10-18 23:24] VITALS: BP 183/85
[2018-10-19 03:50] VITALS: BP 172/78
[2018-10-19 04:07] LABS: BASO % 1 % (0-3); EOS # 0.4 x10^3/uL (0.0-0.7); EOS % 6 % (0-3); HEMATOCRIT 36.6 % (39.0-53.0); HEMOGLOBIN 12.3 g/dL (13.0-17.5); LYMPH # 1.4 x10^3/uL (1.0-4.8); LYMPH % 20 % (24-48); MEAN CORPUSCULAR HEMOGLOBIN 29 pg (25-35); MEAN CORPUSCULAR HGB CONC 34 g/dL (31-37); MEAN CORPUSCULAR VOLUME 86 fL (79-100); MONO # 0.7 x10^3/uL (0.0-1.1); MONO % 10 % (0-9); NEUT # 4.6 x10^3uL (1.8-7.7); NEUT % 64 % (31-73); PLATELET COUNT 206 x10^3/uL (140-400); RED BLOOD COUNT 4.26 x10^6/uL (4.30-5.70); RED CELL DISTRIBUTION WIDTH 15.2 % (11.5-14.5); WHITE BLOOD COUNT 7.2 x10^3/uL (4.0-11.0)
[2018-10-19 04:10] LABS: CALCIUM 8.9 mg/dL (8.5-10.1); CREATININE 1.4 mg/dL (0.7-1.3); GFR 58.7
[2018-10-19] MEDS: hydrALAZINE 20 MG/ML VIAL. IVP PRN (04:53)
[2018-10-19] MEDS: NITROGLYCERIN OINT 1 GM PACKET. TP SCH ×3 (06:07→17:52)
[2018-10-19 07:48] VITALS: BP 163/76
[2018-10-19] MEDS: ASPIRIN ENTERIC COATED 81 MG TABLET.DR. PO SCH (07:58)
[2018-10-19] MEDS: LOSARTAN POTASSIUM 50 MG TABLET. PO SCH (07:58)
[2018-10-19] MEDS: amLODIPine BESYLATE 10 MG TABLET PO SCH (07:58)
[2018-10-19] MEDS: POLYETHYLENE GLYCOL 3350 17 GM PACKET. PO SCH ×2 (07:59→20:45)
[2018-10-19] MEDS: PANTOPRAZOLE 40 MG TABLET.DR. PO SCH (07:59)
[2018-10-19] MEDS: diphenhydrAMINE 50 MG/ML VIAL IVP PRN ×2 (07:59→17:52)
[2018-10-19] MEDS: METOPROLOL TART IMMED RELEASE 25 MG TABLET. PO SCH ×2 (07:59→20:48)
--- NOTE | 2018-10-19 08:16 | PDOC ---
PROGRESS NOTES Chief Complaint Chief Complaint Atypical Chest pain SOB - Diastolic CHF HTN HYPERLIPIDEMIA Abdominal pain - Colitis with hepatic lesion: Circumferential wall thickening of the inferior rectum and at the anal canal. No surrounding edema is evident. this could represent low-grade inflammation from distal colitis, rectal malignancy CKD stage 3 COPD PAFIB: Dementia/debility History of Present Illness History of Present Illness 83-year-old male who presents with complaint of chest pain shortness of breath started this morning at about 1:00. Patient rates pain as being moderate. Patient was given 4 baby aspirin and nitroglycerin prior to arrival but states that pain is no better after nitroglycerin. He states that symptom onset was at rest. He denies any nausea, vomiting or diaphoresis. Patient states that nothing improves his symptoms. he has a cough and allergy symptoms as well and is given claritin and mucinex dm in er. 10/16-10/18: Found with rectal wall thickening and hepatic lesion on CT abdomen, concern for metastatic colorectal malignancy. GI consulted. Patient currently has no complaints, however, has not been able to have a BM. Discussed with his nephew bedside about considering colonoscopy, but results would not change therapy or outcomes. He wishes to speak with his cousin (patient's daughter first). Pleasantly confused. Complains of itching on his posterior scalp, no other complaints Plan: Consider sigmoidoscopy, nephew will consent if GI wishes to move forward, npo after midnight, clears and bowel prep today Plans of care discussed with nursing Vitals Vitals Vital Signs Date Time Temp Pulse Resp B/P (MAP) Pulse Ox O2 Delivery O2 Flow Rate FiO2 10/19/18 07:59 92 163/76 10/19/18 07:48 98.2 20 97 Room Air 98.2 10/19/18 03:50 3.0 Physical Exam General: Alert, Cooperative, No acute distress, Other (pleasantly confused) Heart: Regular rate, Normal S1, Normal S2, No murmurs Lungs: Clear, Other (No crackels ro wheezes heard) Abdomen: Normal bowel sounds, Soft, No tenderness Extremities: No clubbing, No cyanosis, Other (trace to 1+ bilaterl LE edema) Skin: No rashes, No breakdown, No significant lesion Labs LABS Laboratory Tests Test 10/18/18 10:38 10/19/18 03:15 Glucose (Fingerstick) 97 mg/dL (70-99) White Blood Count 7.2 x10^3/uL (4.0-11.0) Red Blood Count 4.26 x10^6/uL (4.30-5.70) Hemoglobin 12.3 g/dL (13.0-17.5) Hematocrit 36.6 % (39.0-53.0) Mean Corpuscular Volume 86 fL (79-100) Mean Corpuscular Hemoglobin 29 pg (25-35) Mean Corpuscular Hemoglobin Concent 34 g/dL (31-37) Red Cell Distribution Width 15.2 % (11.5-14.5) Platelet Count 206 x10^3/uL (140-400) Neutrophils (%) (Auto) 64 % (31-73) Lymphocytes (%) (Auto) 20 % (24-48) Monocytes (%) (Auto) 10 % (0-9) Eosinophils (%) (Auto) 6 % (0-3) Basophils (%) (Auto) 1 % (0-3) Neutrophils # (Auto) 4.6 x10^3uL (1.8-7.7) Lymphocytes # (Auto) 1.4 x10^3/uL (1.0-4.8) Monocytes # (Auto) 0.7 x10^3/uL (0.0-1.1) Eosinophils # (Auto) 0.4 x10^3/uL (0.0-0.7) Basophils # (Auto) 0.0 x10^3/uL (0.0-0.2) Sodium Level 139 mmol/L (136-145) Potassium Level 4.0 mmol/L (3.5-5.1) Chloride Level 105 mmol/L (98-107) Carbon Dioxide Level 23 mmol/L (21-32) Anion Gap 11 (6-14) Blood Urea Nitrogen 19 mg/dL (8-26) Creatinine 1.4 mg/dL (0.7-1.3) Estimated GFR (Cockcroft-Gault) 58.7 Glucose Level 98 mg/dL (70-99) Calcium Level 8.9 mg/dL (8.5-10.1) Assessment and Plan Assessmemt and Plan Problems Medical Problems: (1) Chest pain Status: Acute Comment Review of Relevant I have reviewed the following items rosy (where applicable) has been applied. Labs Laboratory Tests Test 10/18/18 10:38 10/19/18 03:15 Glucose (Fingerstick) 97 mg/dL (70-99) White Blood Count 7.2 x10^3/uL (4.0-11.0) Red Blood Count 4.26 x10^6/uL (4.30-5.70) Hemoglobin 12.3 g/dL (13.0-17.5) Hematocrit 36.6 % (39.0-53.0) Mean Corpuscular Volume 86 fL (79-100) Mean Corpuscular Hemoglobin 29 pg (25-35) Mean Corpuscular Hemoglobin Concent 34 g/dL (31-37) Red Cell Distribution Width 15.2 % (11.5-14.5) Platelet Count 206 x10^3/uL (140-400) Neutrophils (%) (Auto) 64 % (31-73) Lymphocytes (%) (Auto) 20 % (24-48) Monocytes (%) (Auto) 10 % (0-9) Eosinophils (%) (Auto) 6 % (0-3) Basophils (%) (Auto) 1 % (0-3) Neutrophils # (Auto) 4.6 x10^3uL (1.8-7.7) Lymphocytes # (Auto) 1.4 x10^3/uL (1.0-4.8) Monocytes # (Auto) 0.7 x10^3/uL (0.0-1.1) Eosinophils # (Auto) 0.4 x10^3/uL (0.0-0.7) Basophils # (Auto) 0.0 x10^3/uL (0.0-0.2) Sodium Level 139 mmol/L (136-145) Potassium Level 4.0 mmol/L (3.5-5.1) Chloride Level 105 mmol/L (98-107) Carbon Dioxide Level 23 mmol/L (21-32) Anion Gap 11 (6-14) Blood Urea Nitrogen 19 mg/dL (8-26) Creatinine 1.4 mg/dL (0.7-1.3) Estimated GFR (Cockcroft-Gault) 58.7 Glucose Level 98 mg/dL (70-99) Calcium Level 8.9 mg/dL (8.5-10.1) Laboratory Tests Test 10/18/18 10:38 10/19/18 03:15 Glucose (Fingerstick) 97 mg/dL (70-99) White Blood Count 7.2 x10^3/uL (4.0-11.0) Red Blood Count 4.26 x10^6/uL (4.30-5.70) Hemoglobin 12.3 g/dL (13.0-17.5) Hematocrit 36.6 % (39.0-53.0) Mean Corpuscular Volume 86 fL (79-100) Mean Corpuscular Hemoglobin 29 pg (25-35) Mean Corpuscular Hemoglobin Concent 34 g/dL (31-37) Red Cell Distribution Width 15.2 % (11.5-14.5) Platelet Count 206 x10^3/uL (140-400) Neutrophils (%) (Auto) 64 % (31-73) Lymphocytes (%) (Auto) 20 % (24-48) Monocytes (%) (Auto) 10 % (0-9) Eosinophils (%) (Auto) 6 % (0-3) Basophils (%) (Auto) 1 % (0-3) Neutrophils # (Auto) 4.6 x10^3uL (1.8-7.7) Lymphocytes # (Auto) 1.4 x10^3/uL (1.0-4.8) Monocytes # (Auto) 0.7 x10^3/uL (0.0-1.1) Eosinophils # (Auto) 0.4 x10^3/uL (0.0-0.7) Basophils # (Auto) 0.0 x10^3/uL (0.0-0.2) Sodium Level 139 mmol/L (136-145) Potassium Level 4.0 mmol/L (3.5-5.1) Chloride Level 105 mmol/L (98-107) Carbon Dioxide Level 23 mmol/L (21-32) Anion Gap 11 (6-14) Blood Urea Nitrogen 19 mg/dL (8-26) Creatinine 1.4 mg/dL (0.7-1.3) Estimated GFR (Cockcroft-Gault) 58.7 Glucose Level 98 mg/dL (70-99) Calcium Level 8.9 mg/dL (8.5-10.1) Medications Current Medications Morphine Sulfate (Morphine Sulfate) 2 mg PRN Q15MIN PRN IV/SQ PAIN GREATER THAN 3/10 Last administered on 10/15/18at 04:09; Start 10/15/18 at 02:15; Stop at 02:14; Status DC Ondansetron HCl (Zofran) 4 mg 1X ONCE IV ; Start 10/15/18 at 03:00; Stop at 03:01; Status DC Iohexol (Omnipaque 300 Mg/ml) 75 ml 1X ONCE IV Last administered on 10/15/18at 03:46; Start 10/15/18 at 04:00; Stop 10/15/18 at 04:01; Status DC Info (CONTRAST GIVEN -- Rx MONITORING) 1 each PRN DAILY PRN MC SEE COMMENTS; Start 10/15/18 at 03:45; Stop 10/17/18 at 03:44; Status DC Diphenhydramine HCl (Benadryl) 25 mg 1X ONCE IVP Last administered on at 04:07; Start 10/15/18 at 04:30; Stop 10/15/18 at 04:31; Status DC Ondansetron HCl (Zofran) 4 mg PRN Q8HRS PRN IV NAUSEA/VOMITING 1ST CHOICE; Start 10/15/18 at 05:15; Stop 10/16/18 at 05:14; Status DC Morphine Sulfate (Morphine Sulfate) 2 mg PRN Q2HR PRN IV SEVERE PAIN Last administered on 10/15/18at 21:16; Start 10/15/18 at 05:15; Stop 10/16/18 at 05:14 ; Status DC Aspirin (Ecotrin) 81 mg DAILYWBKFT PO Last administered on 10/19/18at 07:58; Start 10/15/18 at 11:00 Labetalol HCl (Normodyne Iv Push) 20 mg PRN Q2HR PRN IVP HYPERTENSION, SEE COMMENTS Last administered on 10/15/18at 11:07; Start 10/15/18 at 09:30; Stop at 17:20; Status DC Amlodipine Besylate (Norvasc) 10 mg DAILY PO Last administered on 10/19/18at 07: 58; Start 10/15/18 at 11:00 Losartan Potassium (Cozaar) 100 mg DAILY PO Last administered on 10/19/18 07: 58; Start 10/15/18 at 11:00 Pantoprazole Sodium (Protonix) 40 mg DAILYAC PO Last administered on 10/19/18 07:59; Start 10/15/18 at 16:30 Nitroglycerin (Nitro-Bid Oint) 1 inch Q6HRS TP Last administered on 10/19/18 06:07; Start 10/15/18 at 18:00 Hydralazine HCl (Apresoline Inj) 10 mg PRN Q4HRS PRN IVP ELEVATED BP, SEE COMMENTS Last administered on 10/19/18at 04:53; Start 10/15/18 at 17:30 Metoprolol Tartrate (Lopressor) 12.5 mg BID PO Last administered on 10/19/18 07:59; Start 10/15/18 at 21:00 Diphenhydramine HCl (Benadryl) 12.5 mg 1X ONCE IM ; Start 10/15/18 at 21:30; Stop 10/15/18 at 21:31; Status Cancel Diphenhydramine HCl (Benadryl) 25 mg 1X ONCE IVP ; Start 10/15/18 at 21:45; Stop 10/15/18 at 21:46; Status DC Diphenhydramine HCl (Benadryl) 12.5 mg 1X ONCE IVP Last administered on at 08:12; Start 10/16/18 at 07:45; Stop 10/16/18 at 07:48; Status DC Polyethylene Glycol (miraLAX PACKET) 17 gm DAILY PO Last administered on at 08:51; Start 10/16/18 at 10:00; Stop 10/17/18 at 10:19; Status DC Polyethylene Glycol (miraLAX PACKET) 17 gm PRN DAILY PRN PO CONSTIPATION, 1ST CHOICE; Start 10/16/18 at 09:30 Morphine Sulfate (Morphine Sulfate) 2 mg PRN Q4HRS PRN IV PAIN Last administered on 10/16/18at 22:58; Start 10/16/18 at 20:30 Polyethylene Glycol (miraLAX PACKET) 17 gm BID PO Last administered on 07:59; Start 10/17/18 at 21:00 Lactulose (Lactulose) 20 gm PRN DAILY PRN PO CONSTIPATION, 2ND CHOICE; Start at 11:30 Magnesium Citrate (Citroma) 296 ml 1X ONCE PO ; Start 10/19/18 at 12:00; Stop 10/19/18 at 12:01 Sodium Monofluorophosphate (Fleet Adult) 133 ml 1X ONCE [place] ; Start 10/20/18 at 08:00; Stop 10/20/18 at 08:01 Sodium Monofluorophosphate (Fleet Adult) 133 ml 1X ONCE CO ; Start 10/20/18 at 10:00; Stop 10/20/18 at 10:01 Diphenhydramine HCl (Benadryl) 25 mg PRN Q6HRS PRN IVP ITCHING Last administered on 10/19/18at 07:59; Start 10/18/18 at 12:00 Active Scripts Active [Metoprolol Tartrate] 25 MG Tablet 12.5 Mg PO BID [Aspirin] 81 MG Tablet.dr 81 Mg PO DAILYWBKFT Tylenol (Acetaminophen) 325 Mg Tablet 650 Mg PO PRN Q6HRS PRN Reported Trazodone Hcl 50 Mg Tablet 50 Mg PO HS Senna S Tablet (Sennosides/Docusate Sodium) 1 Each Tablet 2 Each PO BID Ranitidine Hcl 150 Mg Tablet 1 Tab PO PRN Q12HR PRN Ranitidine Hcl 150 Mg Tablet 1 Tab PO HS Ipratropium [place] 0.2 Mg/1 Ml Solution 1 Vial NEB QID Flomax (Tamsulosin Hcl) 0.4 Mg Cap.er.24h 0.4 Mg PO HS Amlodipine Besylate 10 Mg Tablet 10 Mg PO DAILY Losartan Potassium 100 Mg Tablet 100 Mg PO DAILY Finasteride 5 Mg Tablet 1 Tab PO DAILY [place] 5-325 Tablet (Acetaminophen/Hydrocodone Bitart) 1 Each Tablet 1 Tab PO PRN Q6HRS PRN Artificial Tears Eye Drops (Dextran 70/Hypromellose) 15 Ml Drops 1 Drop EACHEYE PRN DAILY PRN Clonazepam 0.5 Mg Tablet 1 Tab PO HS Vitals/I & O Vital Sign - Last 24 Hours 10/18/18 10/18/18 10/18/18 10/18/18 08:20 08:21 08:22 11:00 Temp 98.1 98.1 Pulse 83 83 83 69 Resp 16 B/P (MAP) 91/50 91/50 91/50 148/69 (95) Pulse Ox 93 O2 Delivery Room Air 10/18/18 10/18/18 10/18/18 10/18/18 13:01 15:12 17:42 19:30 Temp 98.0 98.0 Pulse 83 87 87 Resp 24 B/P (MAP) 129/67 164/83 (110) 164/83 Pulse Ox 95 O2 Delivery Room Air Room Air 10/18/18 10/18/18 10/18/18 10/19/18 19:30 23:24 23:25 03:50 Temp 98.0 98.1 98.7 98.0 98.1 98.7 Pulse 77 98 94 90 Resp 20 20 22 B/P (MAP) 139/65 (89) 183/85 (117) 183/85 172/78 (109) Pulse Ox 94 92 94 O2 Delivery Room Air Room Air Nasal Cannula O2 Flow Rate 3.0 10/19/18 10/19/18 10/19/18 10/19/18 04:53 06:07 07:48 07:58 Temp 98.2 98.2 Pulse 90 86 92 92 Resp 20 B/P (MAP) 172/78 163/76 163/76 (105) 163/76 Pulse Ox 97 O2 Delivery Room Air 10/19/18 10/19/18 07:58 07:59 Pulse 92 92 B/P (MAP) 163/76 163/76 Intake and Output 10/18/18 10/18/18 10/19/18 15:00 23:00 07:00 Intake Total 100 ml 100 ml Output Total 0 ml 0 ml Balance 0 ml 100 ml 100 ml KAYLA WALL MD Oct 19, 2018 08:16
[2018-10-19 10:57] VITALS: BP 151/90
[2018-10-19] MEDS ORDERED: DOCUSATE SODIUM 283 MG/5 ML ENEMA. PR PRN (11:45)
[2018-10-19] MEDS ORDERED: MAGNESIUM CITRATE 296 ML SOLUTION. PO ONE ×2 (12:00)
[2018-10-19 15:33] VITALS: BP 173/83
[2018-10-19 19:00] VITALS: BP 158/79
[2018-10-19 23:00] VITALS: BP 149/73
[2018-10-20] VITALS (14 sets, daily range): BP systolic 153–196; BP diastolic 67–84
[2018-10-20] MEDS: NITROGLYCERIN OINT 1 GM PACKET. TP SCH ×4 (00:20→18:15)
[2018-10-20] MEDS: PANTOPRAZOLE 40 MG TABLET.DR. PO SCH (07:30)
[2018-10-20 07:38] LABS: BASO # 0.1 x10^3/uL (0.0-0.2); BASO % 1 % (0-3); EOS # 0.3 x10^3/uL (0.0-0.7); EOS % 4 % (0-3); HEMATOCRIT 40.2 % (39.0-53.0); HEMOGLOBIN 13.2 g/dL (13.0-17.5); LYMPH # 1.1 x10^3/uL (1.0-4.8); LYMPH % 16 % (24-48); MEAN CORPUSCULAR HEMOGLOBIN 28 pg (25-35); MEAN CORPUSCULAR HGB CONC 33 g/dL (31-37); MEAN CORPUSCULAR VOLUME 86 fL (79-100); MONO # 0.6 x10^3/uL (0.0-1.1); MONO % 9 % (0-9); NEUT # 4.9 x10^3uL (1.8-7.7); NEUT % 71 % (31-73); PLATELET COUNT 228 x10^3/uL (140-400); RED BLOOD COUNT 4.66 x10^6/uL (4.30-5.70); RED CELL DISTRIBUTION WIDTH 15.7 % (11.5-14.5)
[2018-10-20 07:50] LABS: CALCIUM 9.4 mg/dL (8.5-10.1); CREATININE 1.4 mg/dL (0.7-1.3); GFR 58.7
[2018-10-20] MEDS ORDERED: SODIUM PHOSPHATES 19/7GM 133 ML ENEMA. PR ONE ×3 (08:00→11:45)
[2018-10-20] MEDS: ASPIRIN ENTERIC COATED 81 MG TABLET.DR. PO SCH (08:00)
[2018-10-20] MEDS: hydrALAZINE 20 MG/ML VIAL. IVP PRN ×2 (08:40→14:09)
[2018-10-20] MEDS: diphenhydrAMINE 50 MG/ML VIAL IVP PRN (08:40)
[2018-10-20] MEDS: amLODIPine BESYLATE 10 MG TABLET PO SCH (09:00)
[2018-10-20] MEDS: METOPROLOL TART IMMED RELEASE 25 MG TABLET. PO SCH ×2 (09:00→22:31)
[2018-10-20] MEDS: POLYETHYLENE GLYCOL 3350 17 GM PACKET. PO SCH ×2 (09:00→21:00)
[2018-10-20] MEDS: LOSARTAN POTASSIUM 50 MG TABLET. PO SCH (09:00)
--- NOTE | 2018-10-20 09:54 | NUR ---
report given to FERNANDA Castillo
[2018-10-20] MEDS ORDERED: IV RINGERS,LACTATED 1000ML 1,000 ML IV ONE (11:00)
--- NOTE | 2018-10-20 11:34 | PDOC ---
PROGRESS NOTES Chief Complaint Chief Complaint Atypical Chest pain SOB - Diastolic CHF HTN HYPERLIPIDEMIA Abdominal pain - Colitis with hepatic lesion: Circumferential wall thickening of the inferior rectum and at the anal canal. No surrounding edema is evident. this could represent low-grade inflammation from distal colitis, rectal malignancy CKD stage 3 COPD PAFIB: Dementia/debility History of Present Illness History of Present Illness some Element of cognitive impairment He claims lives at home with some roommate Plan for flexible sigmoidoscopy possibly by GI Undergoing bowel prep today Plan: flexible sigmoidoscopy today by GI? We'll go back to his current living situations un less PT OT thinks otherwise Vitals Vitals Vital Signs Date Time Temp Pulse Resp B/P (MAP) Pulse Ox O2 Delivery O2 Flow Rate FiO2 10/20/18 11:03 98.5 75 20 190/84 (119) 93 Room Air 98.5 10/19/18 15:33 3.0 Physical Exam General: Alert, Cooperative, No acute distress, Other (pleasantly confused) Heart: Regular rate, Normal S1, Normal S2, No murmurs Lungs: Clear, Other (No crackels ro wheezes heard) Abdomen: Normal bowel sounds, Soft, No tenderness Extremities: No clubbing, No cyanosis, Other (trace to 1+ bilaterl LE edema) Skin: No rashes, No breakdown, No significant lesion Labs LABS Laboratory Tests Test 10/20/18 06:30 White Blood Count 7.0 x10^3/uL (4.0-11.0) Red Blood Count 4.66 x10^6/uL (4.30-5.70) Hemoglobin 13.2 g/dL (13.0-17.5) Hematocrit 40.2 % (39.0-53.0) Mean Corpuscular Volume 86 fL (79-100) Mean Corpuscular Hemoglobin 28 pg (25-35) Mean Corpuscular Hemoglobin Concent 33 g/dL (31-37) Red Cell Distribution Width 15.7 % (11.5-14.5) Platelet Count 228 x10^3/uL (140-400) Neutrophils (%) (Auto) 71 % (31-73) Lymphocytes (%) (Auto) 16 % (24-48) Monocytes (%) (Auto) 9 % (0-9) Eosinophils (%) (Auto) 4 % (0-3) Basophils (%) (Auto) 1 % (0-3) Neutrophils # (Auto) 4.9 x10^3uL (1.8-7.7) Lymphocytes # (Auto) 1.1 x10^3/uL (1.0-4.8) Monocytes # (Auto) 0.6 x10^3/uL (0.0-1.1) Eosinophils # (Auto) 0.3 x10^3/uL (0.0-0.7) Basophils # (Auto) 0.1 x10^3/uL (0.0-0.2) Sodium Level 140 mmol/L (136-145) Potassium Level 4.0 mmol/L (3.5-5.1) Chloride Level 105 mmol/L (98-107) Carbon Dioxide Level 25 mmol/L (21-32) Anion Gap 10 (6-14) Blood Urea Nitrogen 20 mg/dL (8-26) Creatinine 1.4 mg/dL (0.7-1.3) Estimated GFR (Cockcroft-Gault) 58.7 Glucose Level 91 mg/dL (70-99) Calcium Level 9.4 mg/dL (8.5-10.1) Review of Systems Review of Systems A 14 point ROS was completed with the following noted as positive: Other systems reviewed and negative. \CONSTITUTIONAL: No fever or chills EYES: No recent changes SKIN: No rash or itching CARDIOVASCULAR: No chest pain, syncope, palpitations, or edema RESPIRATORY: No SOB or cough GASTROINTESTINAL: No nausea, vomiting or abdominal pain NEUROLOGICAL: No headaches or weakness ENDOCRINE: No cold or heat intolerance GENITOURINARY: No urgency or frequency of urination MUSCULOSKELETAL: No back pain or joint pain LYMPHATICS: No enlarged lymph nodes PSYCHIATRIC: No anxiety or depression Assessment and Plan Assessmemt and Plan Problems Medical Problems: (1) Chest pain Status: Acute Comment Review of Relevant I have reviewed the following items rosy (where applicable) has been applied. Labs Laboratory Tests Test 10/19/18 03:15 10/20/18 06:30 White Blood Count 7.2 x10^3/uL (4.0-11.0) 7.0 x10^3/uL (4.0-11.0) Red Blood Count 4.26 x10^6/uL (4.30-5.70) 4.66 x10^6/uL (4.30-5.70) Hemoglobin 12.3 g/dL (13.0-17.5) 13.2 g/dL (13.0-17.5) Hematocrit 36.6 % (39.0-53.0) 40.2 % (39.0-53.0) Mean Corpuscular Volume 86 fL (79-100) 86 fL (79-100) Mean Corpuscular Hemoglobin 29 pg (25-35) 28 pg (25-35) Mean Corpuscular Hemoglobin Concent 34 g/dL (31-37) 33 g/dL (31-37) Red Cell Distribution Width 15.2 % (11.5-14.5) 15.7 % (11.5-14.5) Platelet Count 206 x10^3/uL (140-400) 228 x10^3/uL (140-400) Neutrophils (%) (Auto) 64 % (31-73) 71 % (31-73) Lymphocytes (%) (Auto) 20 % (24-48) 16 % (24-48) Monocytes (%) (Auto) 10 % (0-9) 9 % (0-9) Eosinophils (%) (Auto) 6 % (0-3) 4 % (0-3) Basophils (%) (Auto) 1 % (0-3) 1 % (0-3) Neutrophils # (Auto) 4.6 x10^3uL (1.8-7.7) 4.9 x10^3uL (1.8-7.7) Lymphocytes # (Auto) 1.4 x10^3/uL (1.0-4.8) 1.1 x10^3/uL (1.0-4.8) Monocytes # (Auto) 0.7 x10^3/uL (0.0-1.1) 0.6 x10^3/uL (0.0-1.1) Eosinophils # (Auto) 0.4 x10^3/uL (0.0-0.7) 0.3 x10^3/uL (0.0-0.7) Basophils # (Auto) 0.0 x10^3/uL (0.0-0.2) 0.1 x10^3/uL (0.0-0.2) Sodium Level 139 mmol/L (136-145) 140 mmol/L (136-145) Potassium Level 4.0 mmol/L (3.5-5.1) 4.0 mmol/L (3.5-5.1) Chloride Level 105 mmol/L (98-107) 105 mmol/L (98-107) Carbon Dioxide Level 23 mmol/L (21-32) 25 mmol/L (21-32) Anion Gap 11 (6-14) 10 (6-14) Blood Urea Nitrogen 19 mg/dL (8-26) 20 mg/dL (8-26) Creatinine 1.4 mg/dL (0.7-1.3) 1.4 mg/dL (0.7-1.3) Estimated GFR (Cockcroft-Gault) 58.7 58.7 Glucose Level 98 mg/dL (70-99) 91 mg/dL (70-99) Calcium Level 8.9 mg/dL (8.5-10.1) 9.4 mg/dL (8.5-10.1) Laboratory Tests Test 10/20/18 06:30 White Blood Count 7.0 x10^3/uL (4.0-11.0) Red Blood Count 4.66 x10^6/uL (4.30-5.70) Hemoglobin 13.2 g/dL (13.0-17.5) Hematocrit 40.2 % (39.0-53.0) Mean Corpuscular Volume 86 fL (79-100) Mean Corpuscular Hemoglobin 28 pg (25-35) Mean Corpuscular Hemoglobin Concent 33 g/dL (31-37) Red Cell Distribution Width 15.7 % (11.5-14.5) Platelet Count 228 x10^3/uL (140-400) Neutrophils (%) (Auto) 71 % (31-73) Lymphocytes (%) (Auto) 16 % (24-48) Monocytes (%) (Auto) 9 % (0-9) Eosinophils (%) (Auto) 4 % (0-3) Basophils (%) (Auto) 1 % (0-3) Neutrophils # (Auto) 4.9 x10^3uL (1.8-7.7) Lymphocytes # (Auto) 1.1 x10^3/uL (1.0-4.8) Monocytes # (Auto) 0.6 x10^3/uL (0.0-1.1) Eosinophils # (Auto) 0.3 x10^3/uL (0.0-0.7) Basophils # (Auto) 0.1 x10^3/uL (0.0-0.2) Sodium Level 140 mmol/L (136-145) Potassium Level 4.0 mmol/L (3.5-5.1) Chloride Level 105 mmol/L (98-107) Carbon Dioxide Level 25 mmol/L (21-32) Anion Gap 10 (6-14) Blood Urea Nitrogen 20 mg/dL (8-26) Creatinine 1.4 mg/dL (0.7-1.3) Estimated GFR (Cockcroft-Gault) 58.7 Glucose Level 91 mg/dL (70-99) Calcium Level 9.4 mg/dL (8.5-10.1) Medications Current Medications Morphine Sulfate (Morphine Sulfate) 2 mg PRN Q15MIN PRN IV/SQ PAIN GREATER THAN 3/10 Last administered on 10/15/18at 04:09; Start 10/15/18 at 02:15; Stop 10/16/18 at 02:14; Status DC Ondansetron HCl (Zofran) 4 mg 1X ONCE IV ; Start 10/15/18 at 03:00; Stop 10/15/18 at 03:01; Status DC Iohexol (Omnipaque 300 Mg/ml) 75 ml 1X ONCE IV Last administered on 10/15/18at 03:46; Start 10/15/18 at 04:00; Stop 10/15/18 at 04:01; Status DC Info (CONTRAST GIVEN -- Rx MONITORING) 1 each PRN DAILY PRN MC SEE COMMENTS; Start 10/15/18 at 03:45; Stop 10/17/18 at 03:44; Status DC Diphenhydramine HCl (Benadryl) 25 mg 1X ONCE IVP Last administered on 10/15/18at 04:07; Start 10/15/18 at 04:30; Stop 10/15/18 at 04:31; Status DC Ondansetron HCl (Zofran) 4 mg PRN Q8HRS PRN IV NAUSEA/VOMITING 1ST CHOICE; Start 10/15/18 at 05:15; Stop 10/16/18 at 05:14; Status DC Morphine Sulfate (Morphine Sulfate) 2 mg PRN Q2HR PRN IV SEVERE PAIN Last administered on 10/15/18at 21:16; Start 10/15/18 at 05:15; Stop 10/16/18 at 05:14; Status DC Aspirin (Ecotrin) 81 mg DAILYWBKFT PO Last administered on 10/19/18at 07:58; Start 10/15/18 at 11:00 Labetalol HCl (Normodyne Iv Push) 20 mg PRN Q2HR PRN IVP HYPERTENSION, SEE COMMENTS Last administered on 10/15/18at 11:07; Start 10/15/18 at 09:30; Stop 10/15/18 at 17:20; Status DC Amlodipine Besylate (Norvasc) 10 mg DAILY PO Last administered on 10/19/18at 07:58; Start 10/15/18 at 11:00 Losartan Potassium (Cozaar) 100 mg DAILY PO Last administered on 10/19/18at 07:58; Start 10/15/18 at 11:00 Pantoprazole Sodium (Protonix) 40 mg DAILYAC PO Last administered on 10/19/18at 07:59; Start 10/15/18 at 16:30 Nitroglycerin (Nitro-Bid Oint) 1 inch Q6HRS TP Last administered on 10/20/18at 00:20; Start 10/15/18 at 18:00 Hydralazine HCl (Apresoline Inj) 10 mg PRN Q4HRS PRN IVP ELEVATED BP, SEE COMMENTS Last administered on 10/20/18at 08:40; Start 10/15/18 at 17:30 Metoprolol Tartrate (Lopressor) 12.5 mg BID PO Last administered on 10/19/18at 20:48; Start 10/15/18 at 21:00 Diphenhydramine HCl (Benadryl) 12.5 mg 1X ONCE IM ; Start 10/15/18 at 21:30; Stop 10/15/18 at 21:31; Status Cancel Diphenhydramine HCl (Benadryl) 25 mg 1X ONCE IVP ; Start 10/15/18 at 21:45; Stop 10/15/18 at 21:46; Status DC Diphenhydramine HCl (Benadryl) 12.5 mg 1X ONCE IVP Last administered on 10/16/18at 08:12; Start 10/16/18 at 07:45; Stop 10/16/18 at 07:48; Status DC Polyethylene Glycol (miraLAX PACKET) 17 gm DAILY PO Last administered on 10/17/18at 08:51; Start 10/16/18 at 10:00; Stop 10/17/18 at 10:19; Status DC Polyethylene Glycol (miraLAX PACKET) 17 gm PRN DAILY PRN PO CONSTIPATION, 1ST CHOICE; Start 10/16/18 at 09:30 Morphine Sulfate (Morphine Sulfate) 2 mg PRN Q4HRS PRN IV PAIN Last administered on 10/16/18at 22:58; Start 10/16/18 at 20:30 Polyethylene Glycol (miraLAX PACKET) 17 gm BID PO Last administered on 10/19/18at 20:45; Start 10/17/18 at 21:00 Lactulose (Lactulose) 20 gm PRN DAILY PRN PO CONSTIPATION, 2ND CHOICE; Start 10/17/18 at 11:30 Magnesium Citrate (Citroma) 296 ml 1X ONCE PO ; Start 10/19/18 at 12:00; Stop 10/19/18 at 12:01; Status Cancel Sodium Monofluorophosphate (Fleet Adult) 133 ml 1X ONCE ND Last administered on 10/20/18at 08:30; Start 10/20/18 at 08:00; Stop 10/20/18 at 08:01; Status DC Sodium Monofluorophosphate (Fleet Adult) 133 ml 1X ONCE ND Last administered on 10/20/18at 10:09; Start 10/20/18 at 10:00; Stop 10/20/18 at 10:01; Status DC Diphenhydramine HCl (Benadryl) 25 mg PRN Q6HRS PRN IVP ITCHING Last administered on 10/20/18at 08:40; Start 10/18/18 at 12:00 Docusate Sodium (Enemeez) 283 mg PRN DAILY PRN ND CONSTIPATION; Start 10/19/18 at 11:45 Magnesium Citrate (Citroma) 296 ml 1X ONCE PO Last administered on 10/19/18at 11:59; Start 10/19/18 at 12:00; Stop 10/19/18 at 12:01; Status DC Ringer's Solution 1,000 ml @ 75 mls/hr 1X ONCE IV ; Start 10/20/18 at 11:00; Stop 10/21/18 at 00:19 Active Scripts Active [Metoprolol Tartrate] 25 MG Tablet 12.5 Mg PO BID [Aspirin] 81 MG Tablet. 81 Mg PO DAILYWBKFT Tylenol (Acetaminophen) 325 Mg Tablet 650 Mg PO PRN Q6HRS PRN Reported Trazodone Hcl 50 Mg Tablet 50 Mg PO HS Senna S Tablet (Sennosides/Docusate Sodium) 1 Each Tablet 2 Each PO BID Ranitidine Hcl 150 Mg Tablet 1 Tab PO PRN Q12HR PRN Ranitidine Hcl 150 Mg Tablet 1 Tab PO HS Ipratropium [place] 0.2 Mg/1 Ml Solution 1 Vial NEB QID Flomax (Tamsulosin Hcl) 0.4 Mg Cap.er.24h 0.4 Mg PO HS Amlodipine Besylate 10 Mg Tablet 10 Mg PO DAILY Losartan Potassium 100 Mg Tablet 100 Mg PO DAILY Finasteride 5 Mg Tablet 1 Tab PO DAILY [place] 5-325 Tablet (Acetaminophen/Hydrocodone Bitart) 1 Each Tablet 1 Tab PO PRN Q6HRS PRN Artificial Tears Eye Drops (Dextran 70/Hypromellose) 15 Ml Drops 1 Drop EACHEYE PRN DAILY PRN Clonazepam 0.5 Mg Tablet 1 Tab PO HS Vitals/I & O Vital Sign - Last 24 Hours 10/19/18 10/19/18 10/19/18 10/19/18 12:00 15:33 17:52 19:00 Temp 98.3 99.2 98.3 99.2 Pulse 85 87 87 88 Resp 24 16 B/P (MAP) 151/90 173/83 (113) 173/83 158/79 (105) Pulse Ox 96 94 O2 Delivery Nasal Cannula Room Air O2 Flow Rate 3.0 10/19/18 10/19/18 10/19/18 10/20/18 20:07 20:48 23:00 00:20 Temp 97.6 97.6 Pulse 88 79 Resp 18 B/P (MAP) 158/79 149/73 (98) 149/73 Pulse Ox 94 O2 Delivery Room Air Room Air 10/20/18 10/20/18 10/20/18 10/20/18 03:00 07:00 08:00 08:40 Temp 97.6 98.3 97.6 98.3 Pulse 87 76 75 Resp 20 18 B/P (MAP) 162/76 (104) 193/82 (119) 193/82 Pulse Ox 93 94 O2 Delivery Room Air Room Air Room Air 10/20/18 10/20/18 10/20/18 10/20/18 09:00 09:00 09:00 11:03 Temp 98.5 98.5 Pulse 75 75 75 75 Resp 20 B/P (MAP) 193/82 193/82 193/82 190/84 (119) Pulse Ox 93 O2 Delivery Room Air Intake and Output 10/19/18 10/19/18 10/20/18 15:00 23:00 07:00 Intake Total 350 ml 700 ml 25 ml Output Total 0 ml 0 ml Balance 350 ml 700 ml 25 ml LARRY MCCOLLUM MD Oct 20, 2018 11:34
[2018-10-20] MEDS ORDERED: PROPOFOL 20 ML IV ONE (12:43)
--- NOTE | 2018-10-20 12:55 | PDOC4 ---
PROCEDURE Procedure Flexible sigmoidoscopy Indication: abnormal CT/question rectal mass. Meds: per anesthesia. Findings: CARLOS: Normal, no palpable mass. External hemorrhoids noted. -'Scope to 50cm (proximal sigmoid), then stool precluding further exam. Mucosa normal to this level. No polyps, masses, diverticulosis noted. Retroflex in rectum with small internal hemorrhoids. [place]. well. IMP: Hemorrhoids NO rectal lesion. REC: Resume diet, meds, treatment of other issues. Thanks. AVNI HASTINGS MD Oct 20, 2018 12:55
--- NOTE | 2018-10-20 15:25 | NUR ---
SS following up with discharge planning. Pt will return to LTC facility at [place], ; fax [phone], at discharge. No discharge order at this time. SS will continue to follow for discharge planning.
[2018-10-21] MEDS: NITROGLYCERIN OINT 1 GM PACKET. TP SCH ×3 (00:22→13:04)
[2018-10-21 03:42] VITALS: BP 149/75
[2018-10-21 03:50] LABS: BASO # 0.1 x10^3/uL (0.0-0.2); BASO % 1 % (0-3); EOS # 0.2 x10^3/uL (0.0-0.7); EOS % 3 % (0-3); HEMATOCRIT 41.2 % (39.0-53.0); HEMOGLOBIN 13.5 g/dL (13.0-17.5); LYMPH # 1.5 x10^3/uL (1.0-4.8); LYMPH % 16 % (24-48); MEAN CORPUSCULAR HEMOGLOBIN 28 pg (25-35); MEAN CORPUSCULAR HGB CONC 33 g/dL (31-37); MEAN CORPUSCULAR VOLUME 87 fL (79-100); MONO # 0.8 x10^3/uL (0.0-1.1); MONO % 9 % (0-9); NEUT # 6.4 x10^3uL (1.8-7.7); NEUT % 71 % (31-73); PLATELET COUNT 251 x10^3/uL (140-400); RED BLOOD COUNT 4.75 x10^6/uL (4.30-5.70); RED CELL DISTRIBUTION WIDTH 15.6 % (11.5-14.5)
[2018-10-21 04:04] LABS: CALCIUM 9.5 mg/dL (8.5-10.1); CREATININE 1.5 mg/dL (0.7-1.3); GFR 54.2; POTASSIUM 4.2 mmol/L (3.5-5.1)
[2018-10-21 06:17] VITALS: BP 142/71
[2018-10-21] MEDS: ASPIRIN ENTERIC COATED 81 MG TABLET.DR. PO SCH (08:10)
[2018-10-21] MEDS: PANTOPRAZOLE 40 MG TABLET.DR. PO SCH (08:10)
[2018-10-21] MEDS: POLYETHYLENE GLYCOL 3350 17 GM PACKET. PO SCH (09:00)
[2018-10-21] MEDS: amLODIPine BESYLATE 10 MG TABLET PO SCH (09:19)
[2018-10-21] MEDS: LOSARTAN POTASSIUM 50 MG TABLET. PO SCH (09:20)
[2018-10-21] MEDS: METOPROLOL TART IMMED RELEASE 25 MG TABLET. PO SCH (09:20)
--- NOTE | 2018-10-21 10:02 | PDOC ---
Subjective: Subjective: [place] nauseated but better now - asks me to take the emesis basin away. "I can't eat that, I had four bites" - points to pancakes. Says he's not hungry. Denies pain. "Am I just gonna sit here like this all day?" Objective: Objective: Reviewed w/ RN - stooled a lot yesterday, some elevated BP yesterday - meds were held prior to scope. Vital Signs: Vital Signs Date Time Temp Pulse Resp B/P (MAP) Pulse Ox O2 Delivery O2 Flow Rate FiO2 10/21/18 09:20 85 142/71 10/21/18 06:17 98.2 18 95 Room Air 98.2 10/20/18 12:07 3.0 Labs: Laboratory Tests Test 10/21/18 03:25 White Blood Count 9.0 x10^3/uL Red Blood Count 4.75 x10^6/uL Hemoglobin 13.5 g/dL Hematocrit 41.2 % Mean Corpuscular Volume 87 fL Mean Corpuscular Hemoglobin 28 pg Mean Corpuscular Hemoglobin Concent 33 g/dL Red Cell Distribution Width 15.6 % Platelet Count 251 x10^3/uL Neutrophils (%) (Auto) 71 % Lymphocytes (%) (Auto) 16 % Monocytes (%) (Auto) 9 % Eosinophils (%) (Auto) 3 % Basophils (%) (Auto) 1 % Neutrophils # (Auto) 6.4 x10^3uL Lymphocytes # (Auto) 1.5 x10^3/uL Monocytes # (Auto) 0.8 x10^3/uL Eosinophils # (Auto) 0.2 x10^3/uL Basophils # (Auto) 0.1 x10^3/uL Sodium Level 140 mmol/L Potassium Level 4.2 mmol/L Chloride Level 103 mmol/L Carbon Dioxide Level 22 mmol/L Anion Gap 15 Blood Urea Nitrogen 21 mg/dL Creatinine 1.5 mg/dL Estimated GFR (Cockcroft-Gault) 54.2 Glucose Level 83 mg/dL Calcium Level 9.5 mg/dL Imaging: Flex sig 10/20/18 CARLOS: Normal, no palpable mass. External hemorrhoids noted. -'Scope to 50cm (proximal sigmoid), then stool precluding further exam. Mucosa normal to this level. No polyps, masses, diverticulosis noted. Retroflex in rectum with small internal hemorrhoids. IMP: Hemorrhoids NO rectal lesion. REC: Resume diet, meds, treatment of other issues. PE: GEN: NAD LUNGS: CTAB HEART: RRR ABD: round (stable), non-tender, NABS NEURO/PSYCH: A & O 3 A/P: Abnormal CT ---> FS without rectal lesion as above H/o constipation H/o H. pylori gastritis and focal intestinal metaplasia (2009) ---> ?treated, on PPI now -- DC per primary on PPI and Miralax. SHAZIA MCNALLY Oct 21, 2018 10:02
[2018-10-21 11:00] VITALS: BP 136/61
[2018-10-21] MEDS ORDERED: Pantoprazole PO (11:12)
[2018-10-21] MEDS ORDERED: ASPI-612 PO (11:12)
[2018-10-21] MEDS ORDERED: METO25TA4 PO (11:12)
[2018-10-21] MEDS ORDERED: LACT20SO PO (11:12)
--- NOTE | 2018-10-21 11:13 | SNU/HH DC ---
DISCHARGE ORDERS DISCHARGE INFORMATION: DISCHARGE DATE: Oct 21, 2018 FINAL DIAGNOSIS Problems Medical Problems: (1) Chest pain Status: Acute CONDITION ON DISCHARGE: Stable CODE STATUS: Code Status: Full DETENTION: SNF STAY <30 DAYS: Yes HOSPICE: HOSPICE: No HOSPICE EVAL & TREAT: No LTAC: ADMIT TO LTAC: No POST DISCHARGE ORDERS: ACTIVITY ORDERS: Activity as tolerated WEIGHT BEARING STATUS: As tolerated DIET AFTER DISCHARGE: Cardiac CHECKS AFTER DISCHARGE: CHECKS AFTER DISCHARGE: Check blood press - daily COMMENTS: keep bowel regimen regular - hemorrhoids on cscope TREATMENT/EQUIPMENT ORDERS: Physical Therapy For: Evalulation/Treatment Occupational Therapy For: Evaluation/Treatment Speech Language Pathology For: Evaluation/Treatment DISCHARGE MEDICATIONS: Home Meds Active Scripts Lactulose (LACTULOSE) 20 Gm/30 Ml Solution, 20 GM PO PRN DAILY PRN for CONSTIPATION, 2ND CHOICE MDD 1 for 10 Days, #1 MISC Prov:LARRY MCCOLLUM MD 10/21/18 [Pantoprazole] 40 MG TABLET. No Conflict Check, 40 MG PO DAILYAC for gerd MDD 1, #60 Prov:LARRY MCCOLLUM MD 10/21/18 Aspirin (ASPIRIN EC) 81 Mg Tablet., 81 MG PO DAILYWBKFT for prevention MDD 1, #60 TAB.SR Prov:LARRY MCCOLLUM MD 10/21/18 Metoprolol Tartrate (METOPROLOL TARTRATE) 25 Mg Tablet, 12.5 MG PO BID for htn MDD 1, #60 TAB Prov:LARRY MCCOLLUM MD 10/21/18 [Metoprolol Tartrate] 25 MG TABLET No Conflict Check, 12.5 MG PO BID, #60 Prov:BRYSON PATEL MD 06/10/14 [Aspirin] 81 MG TABLET. No Conflict Check, 81 MG PO DAILYWBKFT, #30 Prov:BRYSON PATEL MD 06/10/14 Acetaminophen (TYLENOL) 325 Mg Tablet, 650 MG PO PRN Q6HRS PRN for PAIN / TEMP, #30 Prov:BRYSON PATEL MD 06/10/14 Reported Medications Trazodone Hcl (TRAZODONE HCL) 50 Mg Tablet, 50 MG PO HS for INSOMNIA, TAB 10/15/18 Sennosides/Docusate Sodium (SENNA S TABLET) 1 Each Tablet, 2 EACH PO BID for CONSTIPATION, TAB 10/15/18 Ranitidine Hcl (RANITIDINE HCL) 150 Mg Tablet, 1 TAB PO PRN Q12HR PRN for GI SYMPTOMS, #180 TAB 3 Refills 10/15/18 Ranitidine Hcl (RANITIDINE HCL) 150 Mg Tablet, 1 TAB PO HS for GERD, #180 TAB 3 Refills 10/15/18 Ipratropium [place] (IPRATROPIUM BROMIDE) 0.2 Mg/1 Ml Solution, 1 VIAL NEB QID for COPD, #300 ML 5 Refills 10/15/18 Tamsulosin Hcl (FLOMAX) 0.4 Mg Cap.er.24h, 0.4 MG PO HS for BENIGN PROSTATIC HYPERPLASIA, TAB 10/15/18 Amlodipine Besylate (AMLODIPINE BESYLATE) 10 Mg Tablet, 10 MG PO DAILY, TAB 01/09/17 Losartan Potassium (LOSARTAN POTASSIUM) 100 Mg Tablet, 100 MG PO DAILY, TAB 01/09/17 Finasteride (FINASTERIDE) 5 Mg Tablet, 1 TAB PO DAILY, #30 TAB 11 Refills 01/09/17 Hydrocodone/Apap 5-325 (NORCO 5-325 TABLET) 1 Each Tablet, 1 TAB PO PRN Q6HRS PRN for PAIN, TAB 0 Refills 01/09/17 Dextran 70/Hypromellose (ARTIFICIAL TEARS EYE DROPS) 15 Ml Drops, 1 DROP EACHEYE PRN DAILY PRN for DRY EYE, #15 ML 5 Refills 01/09/17 Clonazepam (CLONAZEPAM) 0.5 Mg Tablet, 1 TAB PO HS, #30 TAB 01/09/17 LARRY MCCOLLUM MD Oct 21, 2018 11:12
--- NOTE | 2018-10-21 11:15 | PDOC3 ---
Discharge Summary Visit Information Date of Admission: Oct 15, 2018 Date of Discharge: Oct 21, 2018 Admitting Diagnosis Comment: Atypical Chest pain SOB - Diastolic CHF HTN HYPERLIPIDEMIA Abdominal pain - Colitis with hepatic lesion: Circumferential wall thickening of the inferior rectum and at the anal canal. No surrounding edema is evident. this could represent low-grade inflammation from distal colitis, rectal malignancy CKD stage 3 COPD PAFIB: Dementia/debility Final Diagnosis Problems Medical Problems: (1) Chest pain Status: Acute Brief Hospital Course Allergies Allergies Coded Allergies Type Severity Reaction Last Updated Verified I S O L A T I O N *CONTACT* Allergy Unknown 01/10/17 Yes No Known Medication Allergies Allergy Unknown 10/20/18 Yes Vital Signs Vital Signs Date Time Temp Pulse Resp B/P (MAP) Pulse Ox O2 Delivery O2 Flow Rate FiO2 10/21/18 09:20 85 142/71 10/21/18 08:00 Room Air 10/21/18 06:17 98.2 18 95 98.2 10/20/18 12:07 3.0 Lab Results Laboratory Tests Test 10/20/18 06:30 10/21/18 03:25 White Blood Count 7.0 x10^3/uL (4.0-11.0) 9.0 x10^3/uL (4.0-11.0) Red Blood Count 4.66 x10^6/uL (4.30-5.70) 4.75 x10^6/uL (4.30-5.70) Hemoglobin 13.2 g/dL (13.0-17.5) 13.5 g/dL (13.0-17.5) Hematocrit 40.2 % (39.0-53.0) 41.2 % (39.0-53.0) Mean Corpuscular Volume 86 fL (79-100) 87 fL (79-100) Mean Corpuscular Hemoglobin 28 pg (25-35) 28 pg (25-35) Mean Corpuscular Hemoglobin Concent 33 g/dL (31-37) 33 g/dL (31-37) Red Cell Distribution Width 15.7 % (11.5-14.5) 15.6 % (11.5-14.5) Platelet Count 228 x10^3/uL (140-400) 251 x10^3/uL (140-400) Neutrophils (%) (Auto) 71 % (31-73) 71 % (31-73) Lymphocytes (%) (Auto) 16 % (24-48) 16 % (24-48) Monocytes (%) (Auto) 9 % (0-9) 9 % (0-9) Eosinophils (%) (Auto) 4 % (0-3) 3 % (0-3) Basophils (%) (Auto) 1 % (0-3) 1 % (0-3) Neutrophils # (Auto) 4.9 x10^3uL (1.8-7.7) 6.4 x10^3uL (1.8-7.7) Lymphocytes # (Auto) 1.1 x10^3/uL (1.0-4.8) 1.5 x10^3/uL (1.0-4.8) Monocytes # (Auto) 0.6 x10^3/uL (0.0-1.1) 0.8 x10^3/uL (0.0-1.1) Eosinophils # (Auto) 0.3 x10^3/uL (0.0-0.7) 0.2 x10^3/uL (0.0-0.7) Basophils # (Auto) 0.1 x10^3/uL (0.0-0.2) 0.1 x10^3/uL (0.0-0.2) Sodium Level 140 mmol/L (136-145) 140 mmol/L (136-145) Potassium Level 4.0 mmol/L (3.5-5.1) 4.2 mmol/L (3.5-5.1) Chloride Level 105 mmol/L (98-107) 103 mmol/L (98-107) Carbon Dioxide Level 25 mmol/L (21-32) 22 mmol/L (21-32) Anion Gap 10 (6-14) 15 (6-14) Blood Urea Nitrogen 20 mg/dL (8-26) 21 mg/dL (8-26) Creatinine 1.4 mg/dL (0.7-1.3) 1.5 mg/dL (0.7-1.3) Estimated GFR (Cockcroft-Gault) 58.7 54.2 Glucose Level 91 mg/dL (70-99) 83 mg/dL (70-99) Calcium Level 9.4 mg/dL (8.5-10.1) 9.5 mg/dL (8.5-10.1) Laboratory Tests Test 10/21/18 03:25 White Blood Count 9.0 x10^3/uL (4.0-11.0) Red Blood Count 4.75 x10^6/uL (4.30-5.70) Hemoglobin 13.5 g/dL (13.0-17.5) Hematocrit 41.2 % (39.0-53.0) Mean Corpuscular Volume 87 fL (79-100) Mean Corpuscular Hemoglobin 28 pg (25-35) Mean Corpuscular Hemoglobin Concent 33 g/dL (31-37) Red Cell Distribution Width 15.6 % (11.5-14.5) Platelet Count 251 x10^3/uL (140-400) Neutrophils (%) (Auto) 71 % (31-73) Lymphocytes (%) (Auto) 16 % (24-48) Monocytes (%) (Auto) 9 % (0-9) Eosinophils (%) (Auto) 3 % (0-3) Basophils (%) (Auto) 1 % (0-3) Neutrophils # (Auto) 6.4 x10^3uL (1.8-7.7) Lymphocytes # (Auto) 1.5 x10^3/uL (1.0-4.8) Monocytes # (Auto) 0.8 x10^3/uL (0.0-1.1) Eosinophils # (Auto) 0.2 x10^3/uL (0.0-0.7) Basophils # (Auto) 0.1 x10^3/uL (0.0-0.2) Sodium Level 140 mmol/L (136-145) Potassium Level 4.2 mmol/L (3.5-5.1) Chloride Level 103 mmol/L (98-107) Carbon Dioxide Level 22 mmol/L (21-32) Anion Gap 15 (6-14) Blood Urea Nitrogen 21 mg/dL (8-26) Creatinine 1.5 mg/dL (0.7-1.3) Estimated GFR (Cockcroft-Gault) 54.2 Glucose Level 83 mg/dL (70-99) Calcium Level 9.5 mg/dL (8.5-10.1) Brief Hospital Course Mr. Hanson is a 83 old [place] male who is in LTC resident of [facility]. Admitted for atypical chest pain and found to have diastolic CHF, dyslipidemia. Had some abdominal pain- found to have colitis on CAT scan with hepatic lesion. Circumferential wall thickening inferior rectum on CT. GI con sulted. Always bowel constipated. Flexible sigmoidoscopy done which only showed hemorrhoids. Atypical chest pain resolved, abdominal pain resolved after BM movement from bowel prep Back to LTC [facility] with lactulose, aspirin 81, PPI and metoprolol 12.5 per cardiology Consults performed GI, cardiology Procedures performed flexible sigmoidoscopy 10/20/18 showed hemorrhoids dc 31 dw consultants Discharge Information Condition at Discharge: Improved, Stable Disposition/Orders: Other (snu) Scheduled Amlodipine Besylate (Amlodipine Besylate) 10 Mg Tablet, 10 MG PO DAILY, (Reported) Entered as Reported by: Toña Fuller RN on 01/09/17113 Last Action: Continued on 10/15/18925 by ELOY ALEJANDRO Aspirin (Aspirin Ec) 81 Mg Tablet., 81 MG PO DAILYWBK for prevention MDD 1, #60 Prescribed by: LARRY MCCOLLUM on 10/21/18 1112 Clonazepam (Clonazepam) 0.5 Mg Tablet, 1 TAB PO HS, #30 (Reported) Entered as Reported by: Toña Fuller RN on 01/09/17113 Last Action: Reviewed on 10/15/18821 by KRISTA JIN Finasteride (Finasteride) 5 Mg Tablet, 1 TAB PO DAILY, #30 Ref 11 (Reported) Entered as Reported by: Toña Fuller RN on 01/09/17113 Last Action: Reviewed on 10/15/18821 by KRISTA JIN Ipratropium [place] (Ipratropium [place]) 0.2 Mg/1 Ml Solution, 1 VIAL NEB QID for COPD, #300 Ref 5 (Reported) Entered as Reported by: KRISTA JIN on 10/15/18822 Last Action: New Order on 10/15/18822 by KRISTA JIN Losartan Potassium (Losartan Potassium) 100 Mg Tablet, 100 MG PO DAILY, (Reported) Entered as Reported by: Toña Fuller RN on 01/09/17 0114 Last Action: Converted on 10/15/18925 by ELOY ALEJANDRO Metoprolol Tartrate (Metoprolol Tartrate) 25 Mg Tablet, 12.5 MG PO BID for htn MDD 1, #60 Prescribed by: LARRY MCCOLLUM on 10/21/18 111 Ranitidine Hcl (Ranitidine Hcl) 150 Mg Tablet, 1 TAB PO HS for GERD, #180 Ref 3 (Reported) Entered as Reported by: KRISTA JIN on 10/15/18822 Last Action: New Order on 10/15/18822 by KRISTA JIN Sennosides/Docusate Sodium (Senna S Tablet) 1 Each Tablet, 2 EACH PO BID for CONSTIPATION, (Reported) Entered as Reported by: KRISTA JIN on 10/15/18822 Last Action: New Order on 10/15/18822 by KRISTA JIN Tamsulosin Hcl (Flomax) 0.4 Mg Cap.er.24h, 0.4 MG PO HS for BENIGN PROSTATIC HYPERPLASIA, (Reported) Entered as Reported by: KRISTA JIN on 10/15/18822 Last Action: New Order on 10/15/18822 by KRISTA JIN Trazodone Hcl (Trazodone Hcl) 50 Mg Tablet, 50 MG PO HS for INSOMNIA, (Reported) Entered as Reported by: KRISTA JIN on 10/15/18822 Last Action: New Order on 10/15/18822 by KRISTA JIN [Aspirin] 81 MG TABLET.DR, 81 MG PO DAILYWBKFT, #30 Prescribed by: BRYSON PATEL on 06/10/14 1341 Last Action: Reviewed on 10/15/18821 by KRISTA JIN [Metoprolol Tartrate] 25 MG TABLET, 12.5 MG PO BID, #60 Prescribed by: BRYSON PATEL on 06/10/14 1341 Last Action: Reviewed on 10/15/18821 by KRISTA JIN [Pantoprazole] 40 MG TABLET.DR, 40 MG PO DAILYAC for gerd MDD 1, #60 Prescribed by: LARRY MCCOLLUM on 10/21/18 1112 Scheduled PRN Acetaminophen (Tylenol) 325 Mg Tablet, 650 MG PO PRN Q6HRS PRN for PAIN / TEMP, #30 Prescribed by: BRYSON PATEL on 06/10/14 1341 Last Action: Reviewed on 10/15/18821 by KRISTA JIN Dextran 70/Hypromellose (Artificial Tears Eye Drops) 15 Ml Drops, 1 DROP EACHEYE PRN DAILY PRN for DRY EYE, #15 Ref 5 (Reported) Entered as Reported by: Toña Fuller RN on 01/09/17113 Last Action: Reviewed on 10/15/18821 by KRISTA JIN Hydrocodone/Apap 5-325 ([place] 5-325 Tablet) 1 Each Tablet, 1 TAB PO PRN Q6HRS PRN for PAIN, Ref 0 (Reported) Entered as Reported by: Toña Fuller RN on 01/09/17113 Last Action: Reviewed on 10/15/18821 by KRISTA JIN Lactulose (Lactulose) 20 Gm/30 Ml Solution, 20 GM PO PRN DAILY PRN for CONSTIPATION, 2ND CHOICE MDD 1 for 10 Days, #1 Prescribed by: LARRY MCCOLLUM on 10/21/18 111 Ranitidine Hcl (Ranitidine Hcl) 150 Mg Tablet, 1 TAB PO PRN Q12HR PRN for GI SYMPTOMS, #180 Ref 3 (Reported) Entered as Reported by: KRISTA JIN on 10/15/18822 Last Action: New Order on 10/15/18822 by LARRY RAZA MD Oct 21, 2018 11:15
[2018-10-21 13:04] VITALS: BP 136/61
--- NOTE | 2018-10-21 13:30 | NUR ---
SS following up with discharge planning. Discharge orders received for return to LTC at [facility]. SS phoned and faxed clinical and discharge orders to [facility], ; fax [phone]. Pt will discharge today and return to [facility] at 1430. [facility] to provide stretcher transportation. Pt, pt's RN, and pt's family notified.
--- NOTE | 2018-10-21 15:28 | NUR ---
Discharge Note: [facility] Discharge instructions and discharge home medications reviewed with Other facility and a copy given. All questions have been answered and understanding verbalized. The following instructions and handouts were given: test and outcomes from hospital stay, patient condition. Patient returning to [employer] and report given to JESSEE Restrepo at the facility. Discontinued lines and drains: IV removed, no lines present. Patient discharged to stretcher transportation with his maria r and report/updates given to [employer]/JESSEE Restrepo.
== END 2018-10-21 14:13 | DRG 392 ==
LOC: ER 02:06 → ED HOLD 05:15 → 2 SOUTH 14:15
PROVIDERS: ADMIT Family Medicine; ATTEND Family Medicine
PROC: 0DJD8ZZ Inspection of Lower Intestinal Tract, Via Natural or Artificial Opening Endoscopic (ICD-10-PCS; principal; 2018-10-20 14:30)
DX: K52.9 Noninfective gastroenteritis and colitis, unspecified (principal); I50.32 Chronic diastolic (congestive) heart failure; I13.0 Hypertensive heart and chronic kidney disease with heart failure and stage 1 through stage 4 chronic kidney disease, or unspecified chronic kidney disease; I48.92 Unspecified atrial flutter; I48.0 Paroxysmal atrial fibrillation; I44.0 Atrioventricular block, first degree; I44.7 Left bundle-branch block, unspecified; M19.90 Unspecified osteoarthritis, unspecified site; J44.9 Chronic obstructive pulmonary disease, unspecified; N40.0 Benign prostatic hyperplasia without lower urinary tract symptoms; E78.5 Hyperlipidemia, unspecified; F41.9 Anxiety disorder, unspecified; K76.9 Liver disease, unspecified; N18.3 Chronic kidney disease, stage 3 (moderate); F03.90 Unspecified dementia, unspecified severity, without behavioral disturbance, psychotic disturbance, mood disturbance, and anxiety; D64.9 Anemia, unspecified; K59.00 Constipation, unspecified; K63.5 Polyp of colon; K64.4 Residual hemorrhoidal skin tags; R13.10 Dysphagia, unspecified; Z86.010 Personal history of colon polyps; Z79.899 Other long term (current) drug therapy
CPT/HCPCS: 36415; 45330; 71045; 74177; 80048; 80053; 80061; 81001; 82962; 83540; 83550; 83690; 83735; 83880; 84443; 84484; 85025; 87641; 93005; 93306; 96374; 96375; J0360; J1200; J2270; J2704; J3490; J7120; Q9967; 99285-25